=== PATIENT | male | born 1940 | race Caucasian/White ===

== ENCOUNTER → 2019-06-27 | Outpatient (CLI) | payer MEDICARE | END | disposition home or self-care (01) | LOC: SHCH 14:05 | PROVIDERS: ATTEND Internal Medicine Cardiovascular Disease | DX: I67.9 Cerebrovascular disease, unspecified (principal); I87.2 Venous insufficiency (chronic) (peripheral) | CPT/HCPCS: 93970 ==

== ENCOUNTER 2019-08-03 12:36 | Inpatient (IN) | payer MEDICARE ==
[~2019-08-03] VITALS: Ht 177.8 cm; Wt 116.6 kg
[2019-08-03 14:01] LABS: BASOPHILS % (AUTO) 0.7 % (0.0-5.0); EOSINOPHILS % (AUTO) 2.3 % (0.0-8.0); HEMATOCRIT 46.7 % (42-54); LYMPHOCYTES % (AUTO) 16.8 % (21.0-51.0); MEAN CORPUSCULAR HEMOGLOBIN 32.2 pg (27.0-33.0); MEAN CORPUSCULAR HGB CONC 34.1 g/dL (32.0-36.0); MEAN CORPUSCULAR VOLUME 94.6 fL (79-99); MONOCYTES % (AUTO) 6.9 % (3.0-13.0); NEUTROPHILS % (AUTO) 73.3 % (40.0-77.0); PLATELET COUNT (AUTO) 179 K/uL (130-400); RED BLOOD CELL COUNT(AUTO) 4.93 MIL/uL (4.50-6.20); RED CELL DISTRIBUTION WIDTH 13.3 % (11.0-15.5); WHITE BLOOD COUNT (AUTO) 6.7 K/uL (4.8-10.8)
[2019-08-03 14:09] LABS: CREATININE 1.2 mg/dL (0.5-1.5); POTASSIUM 4.4 mmol/L (3.5-5.1)
[2019-08-03 14:11] LABS: INR 0.95 (0.85-1.15); PARTIAL THROMBOPLASTIN TIME 25.4 SEC (26.3-35.5)
[2019-08-03 14:13] LABS: ALBUMIN 3.5 g/dL (3.5-5.0); BILIRUBIN,DIRECT 0.2 mg/dL (0.0-0.3); BILIRUBIN,TOTAL 0.7 mg/dL (0.2-1.0); TOTAL PROTEIN, SERUM 7.3 g/dL (6.0-8.3)
[2019-08-03] MEDS ORDERED: ACETAMINOPHEN 325 MG TAB PO PRN (14:45)
[2019-08-03] MEDS: ENOXAPARIN SODIUM 120 MG/0.8ML SQ SCH ×2 (14:46→21:00)
[2019-08-03] MEDS ORDERED: GLUCAGON 1MG KIT 1 MG ML IM PRN (15:00)
[2019-08-03] MEDS ORDERED: DEXTROSE 50%-WATER 50 ML DISP.SYRIN IV PRN (15:00)
[2019-08-03] MEDS ORDERED: ENOXAPARIN SODIUM 60 MG/0.6 ML SQ ONE (15:25)
[2019-08-03] MEDS: INSULIN R PO SS1 SQ SCH ×2 (16:30→21:00)
[2019-08-03 18:51] VITALS: BP 131/77
[2019-08-03 20:00] VITALS: BP 121/69
[2019-08-03] MEDS ORDERED: ENOXAPARIN SODIUM 40 MG/0.4 ML SYRINGE SQ ONE (22:18)
[2019-08-03] MEDS ORDERED: ENOXAPARIN SODIUM 80 MG/0.8 ML SQ ONE (22:19)
[2019-08-04] VITALS: BP 118/64
[2019-08-04 03:40] VITALS: BP 126/64
[2019-08-04 04:25] LABS: HEMATOCRIT 42.6 % (42-54); MEAN CORPUSCULAR HEMOGLOBIN 33.8 pg (27.0-33.0); MEAN CORPUSCULAR HGB CONC 35.1 g/dL (32.0-36.0); MEAN CORPUSCULAR VOLUME 96.3 fL (79-99); NUCLEATED RED BLOOD CELLS 0.1 % (0.0-0.19); PLATELET COUNT (AUTO) 162 K/uL (130-400); RED BLOOD CELL COUNT(AUTO) 4.42 MIL/uL (4.50-6.20); RED CELL DISTRIBUTION WIDTH 13.1 % (11.0-15.5); WHITE BLOOD COUNT (AUTO) 6.9 K/uL (4.8-10.8)
[2019-08-04 04:43] LABS: ALBUMIN 3.2 g/dL (3.5-5.0); BILIRUBIN,TOTAL 0.5 mg/dL (0.2-1.0); CREATININE 1.1 mg/dL (0.5-1.5); POTASSIUM 3.6 mmol/L (3.5-5.1); TOTAL PROTEIN, SERUM 6.8 g/dL (6.0-8.3)
[2019-08-04] MEDS: INSULIN R PO SS1 SQ SCH ×2 (06:49→11:17)
[2019-08-04] MEDS ORDERED: KETO120S3 TP (07:16)
[2019-08-04] MEDS ORDERED: INSLAN SQ (07:16)
[2019-08-04] MEDS ORDERED: ASPI-555 PO (07:16)
[2019-08-04] MEDS ORDERED: KETO15CR2 TP (07:16)
[2019-08-04] MEDS ORDERED: BENA1TAB18 PO (07:16)
[2019-08-04] MEDS ORDERED: METF-445 PO (07:16)
[2019-08-04 07:30] VITALS: BP 143/87
[2019-08-04] MEDS ORDERED: BENAZEPRIL PO SCH (09:00)
[2019-08-04] MEDS ORDERED: HYDROCHLOROTHIAZIDE PO SCH (09:00)
[2019-08-04] MEDS ORDERED: ASPIRIN 81 MG EC TAB PO SCH (09:00)
[2019-08-04] MEDS ORDERED: KETOCONAZOLE 15 GM CREAM.GM. TP SCH ×2 (09:00)
[2019-08-04] MEDS ORDERED: METFORMIN HCL 850 MG TABLET PO SCH (09:03)
[2019-08-04] MEDS: ENOXAPARIN SODIUM 120 MG/0.8ML SQ SCH (09:48)
[2019-08-04] MEDS ORDERED: INSULIN GLARGINE 100 UNITS/ML 10 ML VIAL SQ SCH (10:00)
[2019-08-04 11:12] VITALS: BP 120/64
--- NOTE | 2019-08-04 15:00 | NUR ---
DISCHARGE DISCHARGE INSTRUCTIONS GIVEN TO PATIENT AND HIS , BOTH VERBALIZED UNDERSTANDING. EDUCATED PATIENT ON BLEEDING RISKS WHILE TAKING NEW MEDICATION APIXIBAN WHICH HAS BEEN PRESCRIBED. FOLLOW UP APPOINTMENTS MADE WITH DR SAN AND DR ALTMAN. NEW PRESCRIPTIONS GIVEN. IV REMOVED, NO SIGNS OF BLEEDING NOTED.
[2019-08-05] MEDS ORDERED: INSULIN GLARGINE 100 UNITS/ML 10 ML VIAL SQ SCH (08:00)
== END 2019-08-04 15:25 | disposition home or self-care (01) | DRG 301 ==
LOC: EDH 12:36 → EDHIP 13:58 → 4CH 18:23
PROVIDERS: ADMIT Internal Medicine Nephrology; ATTEND Internal Medicine Nephrology
DX: I82.411 Acute embolism and thrombosis of right femoral vein (principal); I82.431 Acute embolism and thrombosis of right popliteal vein; E11.9 Type 2 diabetes mellitus without complications; I10 Essential (primary) hypertension; E78.5 Hyperlipidemia, unspecified; I45.6 Pre-excitation syndrome; M19.90 Unspecified osteoarthritis, unspecified site; Z87.19 Personal history of other diseases of the digestive system
CPT/HCPCS: 36415; 80048; 80053; 80076; 82550; 82948; 84484; 85025; 85027; 85610; 85730; 93005; 93970; G0378; J1650

== ENCOUNTER 2020-10-24 21:27 | Inpatient (IN) | payer MEDICARE ==
[~2020-10-24] VITALS: Ht 180.3 cm; Wt 115.2 kg
[~2020-10-24 21:27] MED LIST: BENA1TAB18 PO; INSLAN SQ; KETO120S13 TP; KETO15CR2 TP; METF-445 PO
[2020-10-24 22:15] LABS: BASOPHILS % (AUTO) 0.6 % (0.0-5.0); EOSINOPHILS % (AUTO) 5.7 % (0.0-8.0); HEMATOCRIT 47.6 % (42-54); LYMPHOCYTES % (AUTO) 7.1 % (21.0-51.0); MEAN CORPUSCULAR HEMOGLOBIN 31.3 pg (27.0-33.0); MEAN CORPUSCULAR HGB CONC 33.8 g/dL (32.0-36.0); MEAN CORPUSCULAR VOLUME 92.6 fL (79-99); MONOCYTES % (AUTO) 10.9 % (3.0-13.0); NEUTROPHILS % (AUTO) 75.3 % (40.0-77.0); PLATELET COUNT (AUTO) 105 K/uL (130-400); RED BLOOD CELL COUNT(AUTO) 5.14 MIL/uL (4.50-6.20); RED CELL DISTRIBUTION WIDTH 12.5 % (11.0-15.5); WHITE BLOOD COUNT (AUTO) 7.2 K/uL (4.8-10.8)
[2020-10-24 22:22] LABS: APPEARANCE,URINE Clear (CLEAR); BILIRUBIN,URINE Negative (NEGATIVE); COLOR,URINE Yellow (YELLOW); GLUCOSE, URINE (UA) Negative (NEGATIVE); KETONES,URINE Trace mg/dL (NEGATIVE); LEUKOCYTE ESTERASE ,URINE Negative (NEGATIVE); NITRATE,URINE Negative (NEGATIVE); OCCULT BLOOD,URINE Negative (NEGATIVE); PH,URINE 5.5 (5.0-8.0); PROTEIN,URINE Negative (NEGATIVE); UROBILINOGEN,URINE 0.2 mg/dL (0.2-1.0)
[2020-10-24 22:31] LABS: CREATININE 1.3 mg/dL (0.5-1.5); POTASSIUM 3.8 mmol/L (3.5-5.1)
[2020-10-24 22:36] LABS: ALBUMIN 3.5 g/dL (3.5-5.0); BILIRUBIN,TOTAL 0.7 mg/dL (0.2-1.0); TOTAL PROTEIN, SERUM 7.4 g/dL (6.0-8.3)
[2020-10-24 23:37] LABS: INR 1.06 (0.85-1.15); PROTHROMBIN TIME 11.5 SEC (9.6-11.6)
[2020-10-24 23:38] LABS: PARTIAL THROMBOPLASTIN TIME 26.4 SEC (26.3-35.5)
[2020-10-25] MEDS ORDERED: ENOXAPARIN SODIUM 30 MG/0.3 ML SQ ONE (01:45)
[2020-10-25 02:00] VITALS: BP 147/72
[2020-10-25] MEDS ORDERED: ONDANSETRON 4MG INJ IVP PRN (02:00)
[2020-10-25] MEDS ORDERED: GLUCAGON 1MG KIT 1 MG ML IM PRN (02:00)
[2020-10-25] MEDS ORDERED: DEXTROSE 50%-WATER 50 ML DISP.SYRIN IV PRN (02:00)
[2020-10-25] MEDS ORDERED: MORPHINE 2 MG SYG IVP PRN (02:00)
[2020-10-25] MEDS ORDERED: ACETAMINOPHEN 325 MG TAB PO PRN (02:00)
[2020-10-25] MEDS ORDERED: ASPI-1197 PO (02:47)
[2020-10-25 03:57] LABS: BASOPHILS % (AUTO) 0.6 % (0.0-5.0); EOSINOPHILS % (AUTO) 0.4 % (0.0-8.0); LYMPHOCYTES % (AUTO) 17.2 % (21.0-51.0); MEAN CORPUSCULAR HEMOGLOBIN 30.9 pg (27.0-33.0); MEAN CORPUSCULAR HGB CONC 33.4 g/dL (32.0-36.0); MEAN CORPUSCULAR VOLUME 92.6 fL (79-99); MONOCYTES % (AUTO) 12.7 % (3.0-13.0); NEUTROPHILS % (AUTO) 68.7 % (40.0-77.0); PLATELET COUNT (AUTO) 149 K/uL (130-400); RED BLOOD CELL COUNT(AUTO) 4.75 MIL/uL (4.50-6.20); RED CELL DISTRIBUTION WIDTH 12.6 % (11.0-15.5); WHITE BLOOD COUNT (AUTO) 4.9 K/uL (4.8-10.8)
[2020-10-25 04:13] LABS: ALBUMIN 3.1 g/dL (3.5-5.0); BILIRUBIN,TOTAL 1.1 mg/dL (0.2-1.0); CREATININE 1.1 mg/dL (0.5-1.5); HEMOGLOBIN A1C 6.9 % (4.0-6.0); MAGNESIUM 1.7 mg/dL (1.80-2.40); POTASSIUM 3.6 mmol/L (3.5-5.1); TOTAL PROTEIN, SERUM 6.9 g/dL (6.0-8.3)
[2020-10-25] MEDS: INSULIN R PO SS1 SQ SCH ×4 (07:30→21:00)
[2020-10-25] MEDS: ENOXAPARIN SODIUM 30 MG/0.3 ML SQ SCH (09:00)
[2020-10-25 10:07] VITALS: BP 167/78
[2020-10-25] MEDS ORDERED: GADODIAMIDE 10 MMOL/20 ML VIAL IV ONE (15:14)
[2020-10-25 15:35] VITALS: BP 125/52
[2020-10-25 18:20] VITALS: BP 108/66
[2020-10-25] MEDS ORDERED: MAGNESIUM 2GM PREMIX 50ML 50 ML IV PRN (19:30)
[2020-10-25 19:35] VITALS: BP 124/65
[2020-10-26 00:07] VITALS: BP 127/65
[2020-10-26 04:00] VITALS: BP 132/56
[2020-10-26] MEDS: INSULIN R PO SS1 SQ SCH ×2 (06:30→11:30)
[2020-10-26] MEDS ORDERED: METFORMIN HCL 850 MG TABLET PO SCH (07:30)
[2020-10-26 08:00] VITALS: BP 138/60
[2020-10-26] MEDS ORDERED: INSULIN GLARGINE 100 UNITS/ML 10 ML VIAL SQ SCH (08:00)
[2020-10-26] MEDS ORDERED: ASPIRIN 81MG CHEW TAB PO SCH (09:00)
[2020-10-26] MEDS ORDERED: BENAZEPRIL HCTZ PO SCH (09:00)
[2020-10-26 09:33] LABS: BASOPHILS % (AUTO) 0.8 % (0.0-5.0); EOSINOPHILS % (AUTO) 5.4 % (0.0-8.0); HEMATOCRIT 46.3 % (42-54); LYMPHOCYTES % (AUTO) 27.9 % (21.0-51.0); MEAN CORPUSCULAR HEMOGLOBIN 31.2 pg (27.0-33.0); MEAN CORPUSCULAR HGB CONC 33.5 g/dL (32.0-36.0); MEAN CORPUSCULAR VOLUME 93.2 fL (79-99); MONOCYTES % (AUTO) 14.9 % (3.0-13.0); NEUTROPHILS % (AUTO) 50.8 % (40.0-77.0); PLATELET COUNT (AUTO) 152 K/uL (130-400); RED BLOOD CELL COUNT(AUTO) 4.97 MIL/uL (4.50-6.20); RED CELL DISTRIBUTION WIDTH 12.7 % (11.0-15.5); WHITE BLOOD COUNT (AUTO) 5.2 K/uL (4.8-10.8)
[2020-10-26] MEDS: ENOXAPARIN SODIUM 30 MG/0.3 ML SQ SCH (09:56)
[2020-10-26 10:34] LABS: CREATININE 1.2 mg/dL (0.5-1.5); POTASSIUM 3.5 mmol/L (3.5-5.1)
[2020-10-26 11:34] VITALS: BP 123/67
[2020-12-16] MEDS ORDERED: BENA40TA92 PO (10:44)
== END 2020-10-26 13:05 | disposition home health service (06) | DRG 312 ==
LOC: EDH 21:27 → EDHIP 10-25 00:46 → 4DH 10-25 02:00
PROVIDERS: ADMIT Internal Medicine Infectious Disease; ATTEND Internal Medicine Infectious Disease
DX: R55 Syncope and collapse (principal); R53.1 Weakness; E83.42 Hypomagnesemia; Z20.822 Contact with and (suspected) exposure to COVID-19; E11.9 Type 2 diabetes mellitus without complications; E66.01 Morbid (severe) obesity due to excess calories; E78.5 Hyperlipidemia, unspecified; G89.29 Other chronic pain; I10 Essential (primary) hypertension; M19.90 Unspecified osteoarthritis, unspecified site; M54.9 Dorsalgia, unspecified; R53.81 Other malaise; Z04.3 Encounter for examination and observation following other accident; M47.26 Other spondylosis with radiculopathy, lumbar region; W18.30XA Fall on same level, unspecified, initial encounter; Z83.3 Family history of diabetes mellitus; Z87.19 Personal history of other diseases of the digestive system; Z68.35 Body mass index [BMI] 35.0-35.9, adult; Y93.89 Activity, other specified; Y92.89 Other specified places as the place of occurrence of the external cause; Y99.8 Other external cause status
CPT/HCPCS: 36415; 71045; 72158; 80048; 80053; 80061; 81003; 82550; 82948; 83036; 83605; 83735; 83880; 84145; 84484; 85025; 85610; 85730; 86140; 87426; 93005; 97039; 99291; A9579; G0378; J1650; J1815; J3475; U0003

== ENCOUNTER 2020-12-12 09:00 | Observation (INO) | payer MEDICARE ==
[~2020-12-12] VITALS: Ht 177.8 cm; Wt 112.9 kg
[~2020-12-12 09:00] MED LIST changes: +ASPI-1197 PO; -BENA1TAB18 PO; -KETO15CR2 TP
[2020-12-16 09:59] VITALS: BP_SYST 145; BP_SYST 163; BP_DIAS 76; BP_DIAS 77
[2020-12-16] MEDS ORDERED: MULT-1367 PO (10:44)
[2020-12-16] MEDS ORDERED: HYDR25TA PO (10:44)
[2020-12-16] MEDS ORDERED: BENA40TA9 PO (10:44)
[2020-12-16] MEDS ORDERED: EMPA25TA PO (10:44)
[2020-12-17] VITALS (24 sets, daily range): BP systolic 106–138; BP diastolic 47–78
[2020-12-17] MEDS: CEFAZOLIN SODIUM 1 GM VIAL IVP SCH ×4 (05:00→17:48)
[2020-12-17] MEDS ORDERED: SODIUM CHLORIDE 0.9% 1000ML 1,000 ML IV ONE (06:47)
[2020-12-17] MEDS ORDERED: DURAMORPH PF1 MG/ML 10ML AMP IV ONE (06:55)
[2020-12-17] MEDS ORDERED: BUPIVACAINE/EPI/PF 0.25% 30ML VIAL IJ ONE (06:55)
[2020-12-17] MEDS ORDERED: CEFAZOLIN SODIUM 1 GM VIAL ONE (06:56)
[2020-12-17] MEDS ORDERED: THROMBIN-JMI 20000 UNIT KIT TP ONE (06:56)
[2020-12-17] MEDS ORDERED: SUCCINYLCHOLINE CHLORIDE 20 MG/ML 10 ML VIAL ONE (07:15)
[2020-12-17] MEDS ORDERED: LIDOCAINE PF 100MG/5ML (2%) SYRINGE 5ML ONE ×2 (07:15→10:20)
[2020-12-17] MEDS ORDERED: PROPOFOL 10 MG/ML 20ML VIAL IV ONE (07:16)
[2020-12-17] MEDS ORDERED: GLYCOPYRROLATE 1 MG/5 ML SYRINGE ONE (07:16)
[2020-12-17] MEDS ORDERED: ONDANSETRON HCL 4 MG/2 ML VIAL ONE (07:16)
[2020-12-17] MEDS ORDERED: DEXAMETHASONE SOD PHOSPHATE 10MG/ML 1ML VIAL ONE ×2 (07:16→07:29)
[2020-12-17] MEDS ORDERED: NEOSTIGMINE 5MG/5ML SYR IV ONE (07:16)
[2020-12-17] MEDS ORDERED: MIDAZOLAM HCL 1 MG/ML 2ML VIAL ONE (07:16)
[2020-12-17] MEDS ORDERED: FENTANYL CITRATE PF 50 MCG/1 ML 2ML VIAL ONE (07:17)
[2020-12-17] MEDS ORDERED: ROCURONIUM 10MG/1ML SYR 10 MG/ML ML ONE ×2 (07:17→08:10)
[2020-12-17] MEDS ORDERED: KETAMINE 50MG/ML SYRINGE 50 MG/ML DISP.SYRIN IV ONE (07:23)
[2020-12-17] MEDS ORDERED: PHENYLEPHRINE HCL 10 MG/ML 1ML VIAL IV ONE (07:32)
[2020-12-17] MEDS ORDERED: EPHEDRINE SULFATE 50 MG/ML AMPULE ONE (08:37)
[2020-12-17] MEDS ORDERED: KETOROLAC 30MG VIAL (30MG/ML) ONE (10:23)
[2020-12-17] MEDS ORDERED: MORPHINE 2 MG SYG (2MG/1ML) IVP PRN (10:45)
[2020-12-17] MEDS ORDERED: HYDROCODONE/ACETAMINOPHEN 5/325 MG TAB PO PRN (10:45)
[2020-12-17] MEDS ORDERED: SODIUM CHLORIDE 0.9% 10 ML VIAL IVP PRN (10:45)
[2020-12-17] MEDS ORDERED: PROMETHAZINE HCL 25 MG/ML 1ML AMPULE IM PRN (10:45)
[2020-12-17] MEDS: DEXAMETHASONE SOD PHOSPHATE 4 MG/ML 1ML VIAL IVP SCH ×3 (10:45→21:21)
[2020-12-17] MEDS ORDERED: LACTATED RINGERS 1000ML 1,000 ML IV SCH (10:45)
[2020-12-17] MEDS ORDERED: KETOCONAZOLE TP SCH (10:45)
[2020-12-17] MEDS ORDERED: GLUCAGON 1MG KIT 1 MG ML IM PRN (11:30)
[2020-12-17] MEDS ORDERED: DEXTROSE 50%-WATER 50 ML DISP.SYRIN IV PRN (11:30)
[2020-12-17] MEDS: INSULIN HUMULIN R 100 UNIT/ML 3ML SQ SCH ×3 (12:24→19:58)
[2020-12-17] MEDS: METFORMIN HCL 850 MG TABLET PO SCH (16:42)
[2020-12-18 03:24] VITALS: BP 140/63
[2020-12-18] MEDS: DEXAMETHASONE SOD PHOSPHATE 4 MG/ML 1ML VIAL IVP SCH (04:29)
[2020-12-18] MEDS: INSULIN HUMULIN R 100 UNIT/ML 3ML SQ SCH (05:22)
[2020-12-18] MEDS: METFORMIN HCL 850 MG TABLET PO SCH (05:58)
[2020-12-18 07:55] VITALS: BP 134/58
[2020-12-18] MEDS ORDERED: INSULIN GLARGINE 100 UNITS/ML 10 ML VIAL SQ SCH (08:00)
[2020-12-18] MEDS ORDERED: **HM** JARDIANCE 25MG PO SCH (09:00)
[2020-12-18] MEDS ORDERED: BENAZEPRIL HCL 10 MG TABLET PO SCH (09:00)
[2020-12-18] MEDS ORDERED: ASPIRIN 81MG TAB.CHEW PO SCH (09:00)
[2020-12-18] MEDS ORDERED: HYDROCHLOROTHIAZIDE 25 MG TABLET PO SCH (09:00)
[2020-12-18] MEDS ORDERED: MULTIVITAMIN TABLET PO SCH (09:00)
== END 2020-12-18 10:17 | disposition home or self-care (01) ==
LOC: EDSTATUS 09:00 → DAHIP 12-17 05:45 → 4AH 12-17 11:50
PROVIDERS: ADMIT Neurological Surgery; ATTEND Neurological Surgery
DX: M48.07 Spinal stenosis, lumbosacral region (principal); Z20.822 Contact with and (suspected) exposure to COVID-19; I48.91 Unspecified atrial fibrillation; M67.48 Ganglion, other site; Z86.718 Personal history of other venous thrombosis and embolism; Z79.899 Other long term (current) drug therapy
CPT/HCPCS: 63047; 63048; 72020; 82948 ×5; 88304; 96361 ×2; 96374; 96375; 96376 ×2; A4215; A4221; A4222; A4223; A4344; A4510; A4649 ×3; A4663; A6260; G0378 ×24; J0330; J0690 ×3; J1100 ×6; J1815 ×4; J1885; J2001 ×2; J2250; J2274; J2370; J2405; J2704; J2710; J3010; J3490 ×4; J7030 ×2; J7120 ×2; U0003

== ENCOUNTER → 2021-12-10 | Outpatient (CLI) | payer MEDICARE ==
[~2021-12-10] MED LIST changes: +BENA40TA92 PO; +EMPA25TA PO; +HYDR25TA PO; +MULT-1367 PO
== END | disposition home or self-care (01) ==
LOC: RAH 07:45
PROVIDERS: ATTEND Internal Medicine Nephrology
DX: S30.0XXA Contusion of lower back and pelvis, initial encounter (principal); D18.09 Hemangioma of other sites; M47.817 Spondylosis without myelopathy or radiculopathy, lumbosacral region; M48.07 Spinal stenosis, lumbosacral region; M71.38 Other bursal cyst, other site; G31.9 Degenerative disease of nervous system, unspecified; J33.8 Other polyp of sinus; R41.0 Disorientation, unspecified; X58.XXXA Exposure to other specified factors, initial encounter; Y93.89 Activity, other specified; Y92.89 Other specified places as the place of occurrence of the external cause; Y99.8 Other external cause status
CPT/HCPCS: 70551; 72148

== ENCOUNTER 2025-01-01 22:58 | Inpatient (IN) | payer MEDICARE ==
[~2025-01-01] VITALS: Ht 180.3 cm; Wt 90.5 kg
[2025-01-01 23:39] LABS: BASOPHILS # (AUTO) 0.03 K/uL (0.00-0.20); BASOPHILS % (AUTO) 0.3 % (0.0-5.0); EOSINOPHILS # (AUTO) 0.06 K/uL (0.00-0.70); EOSINOPHILS % (AUTO) 0.5 % (0.0-8.0); HEMATOCRIT 49.3 % (42-54); IMMATURE GRANULOCYTE ABSOLUTE 0.06 K/uL (0-1); LYMPHOCYTES # (AUTO) 1.4 K/uL (1.0-4.8); LYMPHOCYTES % (AUTO) 12.9 % (21.0-51.0); MEAN CORPUSCULAR HEMOGLOBIN 32.1 pg (27.0-33.0); MEAN CORPUSCULAR HGB CONC 32.5 g/dL (32.0-36.0); MEAN CORPUSCULAR VOLUME 98.8 fL (79-99); MONOCYTES # (AUTO) 0.7 K/uL (0.1-1.0); MONOCYTES % (AUTO) 6.3 % (3.0-13.0); NEUTROPHILS # (AUTO) 8.8 K/uL (1.8-7.7); NEUTROPHILS % (AUTO) 79.5 % (40.0-77.0); PLATELET COUNT (AUTO) 201 K/uL (130-400); RED BLOOD CELL COUNT(AUTO) 4.99 MIL/uL (4.50-6.20); RED CELL DISTRIBUTION WIDTH 13.3 % (11.0-15.5); WHITE BLOOD COUNT (AUTO) 11.1 K/uL (4.8-10.8)
[2025-01-01 23:49] LABS: CREATININE 1.3 mg/dL (0.5-1.3); POTASSIUM 4.4 mmol/L (3.5-5.1)
[2025-01-02] VITALS (83 sets, daily range): BP systolic 76–150; BP diastolic 34–77; PULSE 88–124; RESP 11–22; TEMP 98.9–100.5; O2SAT 89–100
--- NOTE | 2025-01-02 00:13 | ERN ---
General Chief Complaint: Abdominal Pain Stated Complaint: RUQ ABDOMINAL PAIN Time Seen by MD: 23:01 Source: patient History of Present Illness Initial Comments Patient is a [age]-year-old male with a past history of Parkinson's, diabetes mellitus, hypertension and Victorino Parkinson White syndrome. He was sitting at home when all of sudden he had a sudden pain going from his right lower quadrant up to his right chest and around the back. He has never had this pain before. He can not sit down he has to stand to stay comfortable. He can not take deep breaths or talk for very long because of his chest wall pain. He has tenderness on his back in the midscapular region. Current vital signs are a heart rate of 129 O2 sats are 94% on 10 L nasal cannula blood pressure is 128/68 he is breathing at a rate of 37. Timing/Duration: 1-3 hours Severity: severe Associated Symptoms: chest pain, shortness of breath Allergies: Coded Allergies: No Known Allergies (Unverified Allergy, 07/27/13) Home Meds Reported Medications Empagliflozin (Jardiance) 25 Mg Tablet, 25 MG PO AM, TAB 12/16/20 Hydrochlorothiazide (Hydrochlorothiazide) 25 Mg Tablet, 25 MG PO AM, TAB 12/16/20 Benazepril HCl (Benazepril HCl) 40 Mg Tablet, 40 MG PO AM, TAB 12/16/20 Multivitamin (Multivitamin) 1 Each Tablet, 1 EACH PO AM, TAB 12/16/20 Aspirin (Aspirin) 81 Mg Tab.chew, 81 MG PO DAILY, TAB.CHEW 10/25/20 Ketoconazole (Ketoconazole) 120 Ml Shampoo, 120 ML TP 5XDAY, APPL 08/04/19 Insulin Glargine,Hum.rec.anlog (Lantus) 100 Units/Ml Inj, 35 UNITS SQ DAILYBKFST, ML 08/04/19 Metformin HCl (Metformin HCl) 850 Mg Tablet, 850 MG PO BIDAC, TAB 08/04/19 Past Medical History Past Medical History: Diabetes-Type II, Hypertension, Other Medical History Other: PARKINSONS, Hx of WPW syndrome Past Surgical History: None Constitutional: (-) chills, (-) diaphoresis, (-) fever, (-) malaise, (-) weakness, (-) other documentation EENTM: (-) eye pain, (-) blurred vision, (-) tearing, (-) double vision, (-) ear pain, (-) ear discharge, (-) nose pain, (-) nose congestion, (-) throat pain, (-) Throat swelling, (-) mouth pain, (-) tooth pain, (-) mouth swelling, (-) other documentation Respiratory: (-) cough, (-) orthopnea, (-) short of breath, (-) stridor, (-) wheezing, (-) other documentation Cardiovascular: (+) chest pain, (+) palpitations, (+) syncope, (+) dyspnea on exertion, (+) other documentation (History of Awttk-Qttjambbn-Brkxy syndrome, it was treated with digoxin and metoprolol but he stopped taking those medications as the condition resolved.) Gastrointestinal/Abdominal: (-) nausea, (-) vomiting, (-) diarrhea, (-) abdominal pain, (-) abdominal distention, (-) constipation, (-) rectal bleeding, (-) dark stool/melena, (-) other documentation Genitourinary: (-) penile discharge, (-) dysuria, (-) frequency, (-) hematuria, (-) pain, (-) other documentation Musculoskeletal: (+) Neck pain, (+) back pain, (+) Flank Pain, (+) joint pain, (+) joint swelling, (+) muscle pain, (+) muscle stiffness, (+) gout, (+) other documentation Neuro: (-) altered mental status, (-) headache, (-) syncope, (-) paralysis, (-) numbness, (-) seizure, (-) pre-existing deficit, (-) tremors, (-) weakness, (-) dizziness, (-) slurred speech, (-) vertigo, (-) other documentation Psych: (-) depression, (-) suicidal ideation, (-) anxiety, (-) emotional problems, (-) auditory hallucinations, (-) visual hallucinations Physical Exam Physical Exam Dictation Patient is standing at the edge of the bed because sitting down causes too much pain in his chest. Occasionally he will sit down because he feels dizzy but then he needs to stand up fairly quickly after that. He can not talk well as he can only take sharp shallow breaths. The patient is a bit anxious, understandably so. Orientation: (+) alert, (+) oriented x 3 Head/Face Trauma: No Eye: bilateral eye normal inspection, bilateral eye PERRL, bilateral eye EOMI Ear, Nose, Throat: (+) hearing grossly normal, (+) normal ENT inspection, (+) moist mucous membraine Neck: (+) normal inspection, (+) supple, (+) full range of motion Respiratory: (+) chest non-tender, (+) lungs clear Respiratory Comment Lungs do sound clear. Heart: (+) no gallop, (+) tachycardia Vascular: (+) no edema, (+) normal peripheral pulse Gastrointestinal: (+) soft, (+) non-tender, (+) bowel sound present Results Laboratory and Microbiology Lab and Micro Result Laboratory Tests Test 01/01/25 23:31 01/02/25 00:08 01/02/25 00:46 01/02/25 00:58 White Blood Count 11.1 K/uL (4.8-10.8) H Red Blood Count 4.99 MIL/uL (4.50-6.20) Hemoglobin 16.0 g/dL (14.0-18.0) Hematocrit 49.3 % (42-54) Mean Corpuscular Volume 98.8 fL (79-99) Mean Corpuscular Hemoglobin 32.1 pg (27.0-33.0) Mean Corpuscular Hemoglobin Concent 32.5 g/dL (32.0-36.0) Red Cell Distribution Width 13.3 % (11.0-15.5) Platelet Count 201 K/uL (130-400) Mean Platelet Volume 10.4 fL (7.5-10.5) Immature Granulocyte % (Auto) 0.5 % (0-1) Neutrophils (%) (Auto) 79.5 % (40.0-77.0) H Lymphocytes (%) (Auto) 12.9 % (21.0-51.0) L Monocytes (%) (Auto) 6.3 % (3.0-13.0) Eosinophils (%) (Auto) 0.5 % (0.0-8.0) Basophils (%) (Auto) 0.3 % (0.0-5.0) Neutrophils # (Auto) 8.8 K/uL (1.8-7.7) H Lymphocytes # (Auto) 1.4 K/uL (1.0-4.8) Monocytes # (Auto) 0.7 K/uL (0.1-1.0) Eosinophils # (Auto) 0.06 K/uL (0.00-0.70) Basophils # (Auto) 0.03 K/uL (0.00-0.20) Absolute Immature Granulocyte (auto 0.06 K/uL (0-1) Nucleated Red Blood Cells 0.0 % (0.0-0.19) D-Dimer Quantitative (PE/DVT) 5681 ng/mL (0-500) *H Sodium Level 141 mmol/L (136-145) Potassium Level 4.4 mmol/L (3.5-5.1) Chloride Level 104 mmol/L (101-111) Carbon Dioxide Level 27 mmol/L (21-32) Blood Urea Nitrogen 33 mg/dL (7-18) H Creatinine 1.3 mg/dL (0.5-1.3) Glomerular Filtration Rate Calc 55 mL/min (>90) Random Glucose 242 mg/dL (70-105) H Total Calcium 8.8 mg/dL (8.5-10.1) Magnesium Level 1.80 mg/dL (1.80-2.40) Total Bilirubin 0.6 mg/dL (0.2-1.0) Direct Bilirubin 0.1 mg/dL (0.0-0.3) Aspartate Amino Transf (AST/SGOT) 21 U/L (10-37) Alanine Aminotransferase (ALT/SGPT) < 6 U/L (12-78) L Alkaline Phosphatase 70 U/L (50-136) Troponin I High Sensitivity 10 ng/L (4-75) 14 ng/L (4-75) B-Type Natriuretic Peptide 122 pg/mL (0-100) H Total Protein 7.8 g/dL (6.0-8.3) Albumin 3.9 g/dL (3.5-5.0) Lipase 96 U/L (16-77) H Lactic Acid Level 3.4 mmol/L (0.8-2.5) H Influenza Type A Antigen Negative For Type A Influenza Type B Antigen Negative For Type B SARS-CoV-2, RNA, NAAT NEGATIVE SARS CoV-2 Group A Streptococcus Rapid negative (NEGATIVE) Blood Gas Specimen Type Arterial Arterial Blood pH 7.280 (7.350-7.450) Arterial Blood Partial Pressure CO2 43 mmHg (35-48) Arterial Blood Partial Pressure O2 68.3 mmHg (83.0-108.0) L Arterial Blood HCO3 19.9 mmol/L (21.0-28.0) L Arterial Blood Oxygen Saturation 91.7 % (94.0-98.0) L Arterial Blood Base Excess -6.7 mmol/L (-2.0-3.0) L Hemoglobin (Blood Gas) 15.8 g/dL (13.5-17.5) Sodium (Blood Gas) 139 MMOL/L (136-145) Bedside Potassium (Blood Gas) 4.0 MMOL/L (3.4-4.5) Bedside Chloride (Blood Gas) 107 MMOL/L (98-107) Bedside Glucose (Blood Gas) 243 MG/DL (65-95) H Bedside Ionized Calcium (Blood Gas) 1.20 MMOL/L (1.15-1.33) Bedside Lactic Acid (Blood Gas) 1.95 MMOL/L (0.36-0.75) H Blood Gas Temperature 37.0 CELSIUS (35.5-37.0) Blood Gas Flow-by 7.00 L/min (0.00-15.00) Blood Gas Vent Mode NC (ROOM AIR) FiO2 48.0 % Blood Gas Specimen Comment RB DR. WILBURN Test 01/02/25 02:01 Urine Color LIGHT-YELLOW (YELLOW) Urine Appearance CLEAR (CLEAR) Urine pH 5.0 (5.0-8.0) Urine Specific Eros 1.032 (1.001-1.031) Urine Protein NEGATIVE mg/dL (NEGATIVE) Urine Glucose (UA) >=1000 mg/dL (NEGATIVE) H Urine Ketones 20 mg/dL (NEGATIVE) H Urine Occult Blood NEGATIVE (NEGATIVE) Urine Nitrate NEGATIVE (NEGATIVE) Urine Bilirubin NEGATIVE mg/dL (NEGATIVE) Urine Urobilinogen 0.2 mg/dL (0.2-1.0) Urine Leukocyte Esterase NEGATIVE Eugenie/uL Urine RBC 0-1 /HPF (0-1) Urine WBC 0-1 /HPF (0-1) Urine Bacteria RARE /HPF (None Seen) MDM Differential diagnosis for this condition could be: Heart attack, pulmonary embolism, kidney stone, aortic tear, severe electrolyte abnormality. It will be difficult getting a CT scan on this patient, but it needs to be done. I will order the usual labs plus D-dimer and cardiac enzymes chest x-ray. His D-dimer was greater than 5000 raising the suspicion for a PE. Even after 4 mg of IV Dilaudid it was impossible for patient to lie down flat because of his chest pain. Therefore we intubated the patient and started him on a propofol and fentanyl drip. We did then do a CT scan of his chest abdomen and pelvis with angiography. The scans showed bilateral lower lobe pneumonia right worse than left. No PE no aortic dissection. Patient's blood glucose was 243 so I going to give him 10 units of subcutaneous insulin. I bolused him a single dose of Zosyn as well. I discussed the patient with the hospitalist service and they have admitted him to the ICU. Before we intubated the patient he coughed up some thick foul sputum which we sent for culture and sensitivity. He then started coughing up blood. After we intubated him and placed an NG tube it was clear that the blood was coming from his lungs and not his GI tract. My put the patient on a proton pump inhibitor anyway. ED Course Orders Procedure Category Date Status Time Vital Signs Per CPOE 01/01/25 Transmitted Routine 23:30 Saline Lock Iv CPOE 01/01/25 Transmitted 23:30 Cbc With Differential LAB 01/01/25 Complete 23:30 Lipase LAB 01/01/25 Complete 23:30 Urinalysis Profile LAB 01/01/25 Complete 23:30 Troponin I High LAB 01/01/25 Complete Sensitivity 23:30 Basic Metabolic Panel LAB 01/01/25 Complete 23:30 Hepatic Function Panel LAB 01/01/25 Complete 23:51 Chest 1vw RAD 01/01/25 Taken 23:51 B-Type Natriuretic LAB 01/01/25 Complete Peptide 23:51 Magnesium LAB 01/01/25 Complete 23:51 Lactic Acid LAB 01/01/25 Complete 23:56 0.9% Nacl 500ml PHA 01/02/25 Complete Iv.Soln (Ns 500ml 00:00 Blood Cult MIAN 01/02/25 In Process 00:02 12 Lead Ekg Tracing- EKG 01/02/25 Logged Technical 00:13 12 Lead Ekg Tracing- EKG 01/02/25 Logged Technical 00:14 Troponin I High LAB 01/02/25 Complete Sensitivity 00:14 Abd 1vw RAD 01/02/25 Taken 00:21 Respiratory Cult MIAN 01/02/25 In Process W/Gram Stain 00:29 Hydromorphone 2mg PHA 01/02/25 Complete Vial (Dilaudid 2mg Inj 01:00 D-Dimer LAB 01/02/25 Complete 00:35 Hydromorphone 2mg PHA 01/02/25 Complete Vial (Dilaudid 2mg Inj 00:36 Arterial Blood Gas + RT 01/02/25 Transmitted 00:49 Covid Rna Naat LAB 01/02/25 Complete 00:50 Influenza Type A & B, LAB 01/02/25 Complete Rapid 00:50 Rapid (Group A Strep) LAB 01/02/25 Complete 00:50 Arterial Blood Gas LAB 01/02/25 Complete Arterial + 00:[address] 01/02/25 Taken Chest/Abd/Pelvis 01:15 Chest 1vw RAD 01/02/25 Taken 01:25 Dexmedetomidine PHA 01/02/25 Complete 400mcg/[id number] 01:35 Fentanyl 1000mcg+Ns PHA 01/02/25 Complete 100ml (Fentanyl 1000 01:36 Propofol 1000 Mg/100 PHA 01/02/25 Complete Ml (Diprivan 1000mg 01:38 Iohexol (Omnipaque) PHA 01/02/25 Complete 01:53 Fentanyl 1000mcg+Ns PHA 01/02/25 In Process 100ml (Fentanyl 1000 03:00 Propofol 1000 Mg/100 PHA 01/02/25 In Process Ml (Diprivan 1000mg 03:00 Nurse Driven Granger MORGAN 01/02/25 In Process Removal Pro 02:53 Zosyn 3.375gm+Ns 50ml PHA 01/02/25 In Process (Zosyn 3.375gm+Ns 03:30 Lactic Acid (Removed) LAB 01/02/25 Logged 03:41 Vital Signs(Adult CPOE 01/02/25 Transmitted Hospitalist) 03:36 Admit Orders ADM 01/02/25 Transmitted 03:36 Cefepime Hcl 1 Gm PHA 01/02/25 Logged Vial (Maxipime 1 Gm Vi 04:00 Doxycycline 100mg+Ns PHA 01/02/25 Logged 250ml (Doxycycline 04:00 Acetaminophen 325 Tab PHA 01/02/25 Logged (Tylenol 325mg Tab 04:00 Ondansetron 4mg Inj PHA 01/02/25 Logged (Zofran 4mg Inj) 04:00 Enoxaparin Sodium 30 PHA 01/02/25 Logged Mg/0.3 Ml (Lovenox) 09:00 *Nursing CPOE 01/02/25 Transmitted Communication: 03:36 Cbc With Differential LAB 01/02/25 Logged 08:00 Basic Metabolic Panel LAB 01/02/25 Logged 08:00 Magnesium LAB 01/02/25 Logged 08:00 Initiate MORGAN 01/02/25 In Process Hyperglycemia Protoco 03:36 Insulin Regular, PHA 01/02/25 Logged Human 3ml (Humulin R 07:30 Critcal Care Consult CONPHYSVC 01/02/25 Transmitted 03:36 Tranexamic Acid PHA 01/02/25 Logged (Cyklokapron) 06:00 Current Medications Medications (Trade) Dose Ordered Sig/Yadira Route PRN Reason Start Time Stop Time Status Last Admin Dose Admin Acetaminophen (TYLenol 325MG TAB) 650 mg Q6H PRN PO MILD PAIN (1-3) 01/02/25 04:00 02/01/25 03:59 UNV Cefepime HCl (MAXipime 1 GM vial) 1 gm Q8H IVPB 01/02/25 04:00 01/12/25 03:59 UNV Dexmedetomidine/ Sodium Chloride (PRECEdex 400MCG/ 100ML-NS) 400 mcg STK-MED ONCE IV 01/02/25 01:35 01/02/25 01:36 DC Doxycycline Hyclate 250 ml @ 125 mls/hr Q12H IV 01/02/25 04:00 01/12/25 03:59 UNV Enoxaparin Sodium (Lovenox) 30 mg DAILY SQ 01/02/25 09:00 02/01/25 08:59 UNV Fentanyl Citrate 100 ml @ 2.5 mls/hr PROTOCOL IV 01/02/25 03:00 01/09/25 02:59 01/02/25 03:12 Fentanyl Citrate 100 ml @ As Directed STK-MED ONCE IV 01/02/25 01:36 01/02/25 01:37 DC Hydromorphone HCl (DiLAUDid 2MG INJ) 2 mg ONCE ONCE IVP 01/02/25 01:00 01/02/25 01:01 DC 01/02/25 00:46 Hydromorphone HCl (DiLAUDid 2MG INJ) 2 mg STK-MED ONCE .ROUTE 01/02/25 00:36 01/02/25 00:36 DC Insulin Human Regular (humuLIN R 100 UNIT/ML 3ML) INSULIN SLIDING SCAL... ACHS SQ 01/02/25 07:30 02/01/25 07:29 UNV Iohexol (Omnipaque) 35,000 mg STK-MED ONCE IV 01/02/25 01:53 01/02/25 01:53 DC Ondansetron HCl (zoFRAN 4MG INJ) 4 mg Q6H PRN IVP NAUSEA/VOMITING 01/02/25 04:00 02/01/25 03:59 UNV Piperacillin Sod/ Tazobactam Sod (Zosyn 3.375gm+NS 50ml) 3.375 gm Q8H IV 01/02/25 03:30 01/12/25 03:29 Propofol 100 ml @ As Directed STK-MED ONCE IV 01/02/25 01:38 01/02/25 01:38 DC Propofol (DIPRivan 1000MG/ 100ML) 1,000 mg PROTOCOL PRN IV SEDATION 01/02/25 03:00 02/01/25 02:59 01/02/25 03:10 Sodium Chloride 500 ml @ 0 mls/hr ONCE ONCE IV 01/02/25 00:00 01/02/25 00:01 DC 01/02/25 00:43 Tranexamic Acid (Cyklokapron) 500 mg Q6H6 IJ 01/02/25 06:00 02/01/25 05:59 UNV Vital Signs Date Time Temp Pulse Resp B/P (MAP) Pulse Ox O2 Delivery O2 Flow Rate FiO2 01/02/25 02:46 100.2 101 14 148/78 98 Ventilator+ 100 01/02/25 01:47 98 100 01/02/25 01:00 124 22 Non Rebreather/Partial 15.0 100 01/02/25 00:10 100.8 130 34 139/68 94 Nasal Cannula* 4 36 01/01/25 23:00 109 18 179/99 99 Nasal Cannula 2.0 Intubation Intubation : Intubation Method: orotracheal Tube Size (cm): 7.5 Medications: Succinylcholine Breath Sounds after Intubation: equal Intubation Complications: no complications Post Intubation Xray: Yes Progress/Xray Impression: ET tube 5 cm above the alysha Critical Care Note Critical Time: 60 minutes Comments Critical care time was spent stabilizing the patient, intubating the patient, ventilating the patient and starting sedating medications. Please see procedure note for intubation DX & DISP Disposition: Inpatient Departure Impression: Primary Impression: Pneumonia Critical Time: 60 minutes Condition: Stable Referrals: RADHA ALTMAN MD (PCP) BAO WILBURN MD Jan 02, 2025 00:13
--- NOTE | 2025-01-02 00:25 | NUR ---
PATIENT COUGHED UP BLOOD, ED MD MADE AWARE.
[2025-01-02] MEDS: hydroMORPHone 2 MG VIAL (2MG/ML) ONE (00:36)
[2025-01-02 00:40] LABS: ALBUMIN 3.9 g/dL (3.5-5.0); ASPARTATE AMINOTRANSFERASE 21 U/L (10-37); BILIRUBIN,DIRECT 0.1 mg/dL (0.0-0.3); BILIRUBIN,TOTAL 0.6 mg/dL (0.2-1.0); TOTAL PROTEIN, SERUM 7.8 g/dL (6.0-8.3)
[2025-01-02 00:42] LABS: ALANINE AMINOTRANSFERASE < 6 U/L (12-78)
[2025-01-02] MEDS: 0.9% NACL 500ML IV.SOLN 500 ML IV ONE (00:43)
[2025-01-02] MEDS: hydroMORPHone 2 MG VIAL (2MG/ML) IVP ONE (00:46)
[2025-01-02 00:59] LABS: ABG BASE EXCESS -6.7 mmol/L (-2.0-3.0); ABG HCO3 19.9 mmol/L (21.0-28.0); ABG OXYGEN SATURATION 91.7 % (94.0-98.0); ABG PCO2 43 mmHg (35-48); CARBON MONOXIDE 0.5 % (0.5-1.5); HHb 8.2; PO2, ARTERIAL BG 68.3 mmHg (83.0-108.0); VENT MODE, BG NC (ROOM AIR)
[2025-01-02 01:08] LABS: RAPID GROUP A STREP negative (NEGATIVE)
[2025-01-02 01:12] LABS: SARS-CoV-2, RNA, NAAT NEGATIVE SARS CoV-2 (NEGATIVE)
[2025-01-02 01:18] LABS: INFLUENZA TYPE A Negative For Type A (NEGATIVE); INFLUENZA TYPE B Negative For Type B (NEGATIVE)
--- NOTE | 2025-01-02 01:35 | NUR ---
PATIENT C/O SOB, COUGHING UP BRIGHT RED BLOOD, ED MD MADE AWARE
--- NOTE | 2025-01-02 01:40 | NUR ---
INTUBATION NOTE: 0130 25MG OF ETOMIDATE GIVEN IVP ODERED BY ED 013 100MG OF SUCCINYLOCHOLINE GIVEN IVP ORDERED BY ED 013 PAIENT INTUBATED AT THIS TIME; 7.5 ETT@25 CM AT THE TEETH 0136 16FR OG TUBE INSERTED
[2025-01-02] MEDS ORDERED: IOHEXOL 350 MG/ML 100ML INFUS..BTL IV ONE (01:53)
[2025-01-02 02:22] LABS: APPEARANCE,URINE CLEAR (CLEAR); BILIRUBIN,URINE NEGATIVE (NEGATIVE); COLOR,URINE LIGHT-YELLOW (YELLOW); GLUCOSE, URINE (UA) >=1000 mg/dL (NEGATIVE); KETONES,URINE 20 mg/dL (NEGATIVE); LEUKOCYTE ESTERASE ,URINE NEGATIVE Leu/uL (NEGATIVE); NITRATE,URINE NEGATIVE (NEGATIVE); OCCULT BLOOD,URINE NEGATIVE (NEGATIVE); PROTEIN,URINE NEGATIVE (NEGATIVE); UROBILINOGEN,URINE 0.2 mg/dL (0.2-1.0)
[2025-01-02 02:23] LABS: ADD UA MICROSCOPIC YES
[2025-01-02 02:24] LABS: BACTERIA,URINE RARE /HPF (None Seen); MUCUS,URINE RARE LPF (None Seen); RBC,URINE 0-1 /HPF (0-1); WBC,URINE 0-1 /HPF (0-1)
[2025-01-02] MEDS: proPOFol 1000 MG/100 ML IV PRN (03:10)
[2025-01-02] MEDS: dexmedeTOMIDine 400MCG/NS100ML IV ONE (03:12)
[2025-01-02] MEDS: FENTanyl 1000MCG+NS 100ML 100 ML IV ONE (03:12)
[2025-01-02] MEDS: proPOFol 1000 MG/100 ML 100 ML IV ONE (03:12)
[2025-01-02] MEDS: FENTanyl 1000MCG+NS 100ML 100 ML IV SCH (03:12)
--- NOTE | 2025-01-02 03:30 | NUR ---
NONOG OPTOMETRY TEACHER MADE AWARE OF CRITICAL CARE CONSULT
[2025-01-02] MEDS: ZOSYN 3.375GM +NS 50ML IV SCH (03:45)
[2025-01-02] MEDS ORDERED: ondanSETRON 4MG INJ IVP PRN (04:00)
[2025-01-02 04:14] LABS: ABG BASE EXCESS -6.2 mmol/L (-2.0-3.0); ABG HCO3 20.7 mmol/L (21.0-28.0); ABG OXYGEN SATURATION 99.1 % (94.0-98.0); ABG PCO2 46 mmHg (35-48); ABG PH 7.269 (7.350-7.450); CARBON MONOXIDE 0.4 % (0.5-1.5); HHb 0.9; PO2, ARTERIAL BG 267.7 mmHg (83.0-108.0); VENT MODE, BG ACVC (ROOM AIR)
[2025-01-02] MEDS: TRANEXAMIC ACID 1000MG/10ML TP SCH (04:21)
--- NOTE | 2025-01-02 04:40 | NUR ---
REPORT GIVEN TO STANLEY MEIER
[2025-01-02] MEDS ORDERED: BIOT1CAP3 PO (04:54)
[2025-01-02] MEDS ORDERED: INSU3INS3 SQ (04:54)
[2025-01-02] MEDS ORDERED: FLUT15.845 NS (04:54)
[2025-01-02] MEDS ORDERED: KETO15CR2 TP (04:54)
[2025-01-02] MEDS ORDERED: BISA-72 PO ×2 (04:54)
[2025-01-02] MEDS ORDERED: EMPA25TA PO (04:54)
[2025-01-02] MEDS ORDERED: MULT-1203 PO (04:54)
[2025-01-02] MEDS ORDERED: CARB-38 PO (04:54)
[2025-01-02] MEDS ORDERED: LINA145C PO (04:54)
[2025-01-02] MEDS ORDERED: POLY15DR67 OP (04:54)
[2025-01-02] MEDS ORDERED: SEMA1PEN3 SQ (04:54)
[2025-01-02] MEDS ORDERED: CHOL100040 PO (04:54)
[2025-01-02] MEDS ORDERED: BENA10TA77 PO (04:54)
[2025-01-02] MEDS ORDERED: IPRA6S NASAL (04:54)
[2025-01-02] MEDS: DOXYCYCLINE 100MG+NS 250ML 250 ML IV SCH (05:07)
[2025-01-02] MEDS: LACTATED RINGERS 1000ML IV STA (05:23)
[2025-01-02 06:27] LABS: BASOPHILS # (AUTO) 0.01 K/uL (0.00-0.20); BASOPHILS % (AUTO) 0.2 % (0.0-5.0); EOSINOPHILS # (AUTO) 0.01 K/uL (0.00-0.70); EOSINOPHILS % (AUTO) 0.2 % (0.0-8.0); HEMATOCRIT 47.8 % (42-54); IMMATURE GRANULOCYTE ABSOLUTE 0.02 K/uL (0-1); LYMPHOCYTES # (AUTO) 0.4 K/uL (1.0-4.8); LYMPHOCYTES % (AUTO) 6.2 % (21.0-51.0); MONOCYTES # (AUTO) 0.7 K/uL (0.1-1.0); MONOCYTES % (AUTO) 10.4 % (3.0-13.0); NEUTROPHILS # (AUTO) 5.2 K/uL (1.8-7.7); NEUTROPHILS % (AUTO) 82.7 % (40.0-77.0); PLATELET COUNT (AUTO) 157 K/uL (130-400); RED BLOOD CELL COUNT(AUTO) 4.78 MIL/uL (4.50-6.20); RED CELL DISTRIBUTION WIDTH 13.3 % (11.0-15.5); WHITE BLOOD COUNT (AUTO) 6.3 K/uL (4.8-10.8)
[2025-01-02 06:41] LABS: CREATININE 1.3 mg/dL (0.5-1.3); MAGNESIUM 1.8 mg/dL (1.80-2.40); POTASSIUM 4.3 mmol/L (3.5-5.1)
--- NOTE | 2025-01-02 06:54 | EKG ---
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
[2025-01-02] MEDS: INSULIN humuLIN R 100 UNIT/ML 3ML SQ SCH (06:58)
--- NOTE | 2025-01-02 08:45 | EKG ---
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
[2025-01-02] MEDS: ENOXAPARIN SODIUM 30 MG/0.3 ML SQ SCH (09:10)
[2025-01-02] MEDS: LANSOPRAZOLE 15 MG SOLU TAB PEG SCH (09:10)
[2025-01-02 09:22] LABS: ABG BASE EXCESS -5.3 mmol/L (-2.0-3.0); ABG HCO3 21.7 mmol/L (21.0-28.0); ABG OXYGEN SATURATION 95.9 % (94.0-98.0); ABG PCO2 48 mmHg (35-48); ABG PH 7.277 (7.350-7.450); PO2, ARTERIAL BG 91.1 mmHg (83.0-108.0); VENT MODE, BG AC (ROOM AIR)
[2025-01-02] MEDS ORDERED: MIDAZOLAM HCL 50 MG in 0.9%NACL 50ML 50 ML IV SCH (09:30)
--- NOTE | 2025-01-02 09:31 | CONS ---
[facility] CONSULTATION NOTE Date Patient Seen: Jan 02, 2025 Time of Visit: 09:30 Supervising Physician: Gustavo Ervin MD Reason for Consultation: Pneumoniae respiratory failure Primary Care Physician: Cielo Bledsoe MD Outpatient Specialists: none Inpatient Consults: Critical care BIS, PROBLEM LIST: Acute hypoxic respiratory failure requiring intubation on 01/01/25 Bilateral Multifocal bacterial pneumonia, POA suspected micro aspiration Suspected aspiration pneumonia, POA Suspected acute on chronic CHF, POA Septic shock, POA requiring pressors Lactic acidosis, POA Elevated D-dimer negative for PE positive for DVT Acute non-anion gap metabolic acidosis, POA Right popliteal DVT, POA Cardiomegaly Parkinson's disease Victorino Parkinson's White syndrome Hyperglycemia in the presence of type 2 diabetes mellitus Pancreatitis, POA Hypomagnesemia HPI: This is a 84-year-old male with a past medical history of Victorino Parkinson's white syndrome, essential hypertension, Parkinson's disease, and type 2 diabetes mellitus who presented to the ED via EMS for evaluation of pain that started suddenly to right lower quadrant radiated to the right chest wall. On arrival to the ED patient was short of breath and unable to hold a conversation. He was intubated in the ED and admitted to the ICU by Dr. Jones. We are consulted for critical care management and pulmonary due to pneumoniae and hypoxemic respiratory failure. On assessment patient was sedated with propofol and fentanyl. He was on mechanical ventilation with settings of assist control volume control tidal volume of 550 respiratory rate of 14 FiO2 50% and PEEP of five. Settings adjusted per ABG to assist-control volume control tidal volume 500 respiratory rate of 20 FiO2 of 50% and PEEP of 5. Patient with 500 mL of urine output this morning. HIV antibody is nonreactive x2 influenza type a and B negative, SARS COVID-19 negative and strep throat. UDS negative. WBCs trended down H&H is 15.3/47.8 and platelet count of 157 K. neutrophils increased slightly today to 82.7. We will add Flagyl for aspiration pneumonia. On chemistry creatinine 1.3 GFR of 55 similar to yesterday. Ult rasound venous Doppler of lower extremities showed right popliteal nonocclusive thrombus. Patient will be started on high-dose Lovenox for DVT and monitor hemoglobin and hematocrit closely we will have to hold if any signs and symptoms of bleeding. Updated patient's on current findings and plan of care. She verbalized agreement with plan of care. Discussed code status; as per patient to remain full code. PAST MEDICAL HX: Parkinson's disease WPW syndrome Essential hypertension Type 2 diabetes mellitus PAST SURGICAL HX: noncontributory SOCIAL HISTORY: No tobacco, Occasional wine drinker Denies illicit drugs Coded Allergies: No Known Allergies (Unverified Allergy, 07/27/13) REVIEW OF SYSTEMS: Unable to perform due to patient's intubated and sedated. PHYSICAL EXAM: GENERAL: Patient is intubated, critically ill, sedated. HEENT: Sclerae nonicteric, moist mucosa. NECK: Supple, no JVD, trachea midline LUNGS: Diminished breath sounds bilaterally. No wheezes HEART: Regular rate and rhythm. Normal S1 and S2, without murmurs ABD: Abdomen firm nontender, hypoactive bowel sounds. EXT: +1 pitting edema to right lower extremity NEURO: Sedated in intubated. Vital Signs (last 8hr) Date Time Temp Pulse Resp B/P (MAP) Pulse Ox O2 Delivery O2 Flow Rate FiO2 01/02/25 09:23 91 50 01/02/25 08:02 100.6 01/02/25 08:00 98 Ventilator+ 40 01/02/25 07:45 100.6 107 14 118/52 (74) 97 01/02/25 07:30 111 14 136/44 (74) 99 01/02/25 07:15 107 14 136/60 (85) 98 01/02/25 07:00 104 14 136/53 (80) 98 01/02/25 06:33 102 50 01/02/25 06:00 99 16 150/77 (101) 94 01/02/25 05:45 98 14 138/60 (86) 94 01/02/25 05:30 97 Ventilator+ 40 01/02/25 05:30 91 14 123/62 (82) 88 01/02/25 05:15 90 14 91 01/02/25 05:14 99.0 90 14 131/62 (85) 92 01/02/25 04:58 98.8 89 14 107/61 96 Ventilator+ 50 01/02/25 04:21 90 14 01/02/25 04:19 97 50 01/02/25 03:53 92 14 111/61 98 Ventilator+ 100 01/02/25 02:46 100.2 101 14 148/78 98 Ventilator+ 100 01/02/25 01:47 98 100 LABS: Hematology Labs: Test 01/02/25 05:51 Range/Units White Blood Count 6.3 # 4.8-10.8 K/uL Red Blood Count 4.78 4.50-6.20 MIL/uL Hemoglobin 15.3 14.0-18.0 g/dL Hematocrit 47.8 42-54 % Mean Corpuscular Volume 100.0 H 79-99 fL Mean Corpuscular Hemoglobin 32.0 27.0-33.0 pg Mean Corpuscular Hemoglobin Concent 32.0 32.0-36.0 g/dL Red Cell Distribution Width 13.3 11.0-15.5 % Platelet Count 157 130-400 K/uL Mean Platelet Volume 10.7 H 7.5-10.5 fL Immature Granulocyte % (Auto) 0.3 0-1 % Neutrophils (%) (Auto) 82.7 H 40.0-77.0 % Lymphocytes (%) (Auto) 6.2 L 21.0-51.0 % Monocytes (%) (Auto) 10.4 3.0-13.0 % Eosinophils (%) (Auto) 0.2 0.0-8.0 % Basophils (%) (Auto) 0.2 0.0-5.0 % Neutrophils # (Auto) 5.2 1.8-7.7 K/uL Lymphocytes # (Auto) 0.4 L 1.0-4.8 K/uL Monocytes # (Auto) 0.7 0.1-1.0 K/uL Eosinophils # (Auto) 0.01 0.00-0.70 K/uL Basophils # (Auto) 0.01 0.00-0.20 K/uL Absolute Immature Granulocyte (auto 0.02 0-1 K/uL Nucleated Red Blood Cells 0.0 0.0-0.19 % White Cell Morphology Comment See comments Chemistry Labs: Test 01/02/25 05:51 01/02/25 00:08 01/01/25 23:31 Range/Units Sodium Level 143 136-145 mmol/L Potassium Level 4.3 3.5-5.1 mmol/L Chloride Level 107 101-111 mmol/L Carbon Dioxide Level 27 21-32 mmol/L Blood Urea Nitrogen 33 H 7-18 mg/dL Creatinine 1.3 0.5-1.3 mg/dL Glomerular Filtration Rate Calc 55 >90 mL/min Random Glucose 167 H 70-105 mg/dL Lactic Acid Level 1.9 0.8-2.5 mmol/L Total Calcium 8.8 8.5-10.1 mg/dL Magnesium Level 1.80 1.80-2.40 mg/dL Troponin I High Sensitivity 14 4-75 ng/L Total Bilirubin 0.6 0.2-1.0 mg/dL Direct Bilirubin 0.1 0.0-0.3 mg/dL Aspartate Amino Transf (AST/SGOT) 21 10-37 U/L Alanine Aminotransferase (ALT/SGPT) < 6 L 12-78 U/L Alkaline Phosphatase 70 50-136 U/L B-Type Natriuretic Peptide 122 H 0-100 pg/mL Total Protein 7.8 6.0-8.3 g/dL Albumin 3.9 3.5-5.0 g/dL Lipase 96 H 16-77 U/L Coagulation Labs: Test 01/01/25 23:31 Range/Units D-Dimer Quantitative (PE/DVT) 5681 *H 0-500 ng/mL DIAGNOSTICS / RADIOLOGY RESULTS: [ ] IMAGING REPORT Signed PATIENT: OMAR HELM MR#: [id number] : 1940 SEX: M AGE: 84 LOCATION: 2BH ORDER 9 STATUS: ADM IN REPORT#: [id number] SERVICE 9 REASON: RULE OUT DVT ORDERING PHYSICIAN: ELLA DICKINSON PROCEDURE: VENOUS ROBERTO - US VENOUS DOPPLER BILATERAL Exam Type: US VENOUS DOPPLER BILATERAL Clinical Information: RULE OUT DVT Comparison: None Findings: The examination shows nonocclusive thrombosis of the right popliteal vein. The rest of the venous structures evaluated shows no evidence of thrombosis. IMPRESSION: Thrombus as noted. DICTATED BY: SAMARA SANCHEZ MD DATE: 01/02/251131 ELECTRONICALLY SIGNED BY: SAMARA SANCHZE MD DATE: 01/02/25 113 IMAGING REPORT Signed PATIENT: OMAR HELM MR#: [id number] : 1940 SEX: M AGE: 84 LOCATION: 2BH ORDER 4 STATUS: ADM IN REPORT#: [id number] SERVICE REASON: S/P INTUBATION ORDERING PHYSICIAN: BAO WILBURN MD PROCEDURE: CXR1VW - CHEST 1VW Exam Type: CHEST 1VW Clinical Information: S/P INTUBATION Comparison: None Findings: Endotracheal tube is noted with tip approximately .1 cm from alysha and no interval changes are seen otherwise. IMPRESSION: Endotracheal tube tip as noted. DICTATED BY: SAMARA SANCHEZ MD DATE: 01/02/25948 ELECTRONICALLY SIGNED BY: SAMARA SANCHEZ MD DATE: 01/02/25952 IMAGING REPORT Signed PATIENT: OMAR HELM MR#: [id number] : 1940 SEX: M AGE: 84 LOCATION: 2BH ORDER 0117 STATUS: ADM IN REPORT#: [id number] SERVICE REASON: aortic aneurysm or PE ORDERING PHYSICIAN: BAO WILBURN MD PROCEDURE: CTA CAP - CT ANGIO CHEST/ABD/PELVIS Exam Type: CT angiogram, abdomen and pelvis with contrast Clinical Information: aortic aneurysm or PE Comparison: None Technique: Routine helical scanning at 5mm collimation through the chest, abdomen and pelvis after contrast administration. In addition, sagittal and coronary formations of the chest, abdomen and pelvis and surface rendering three-dimensional reconstructions of the abdominal aorta were performed. Findings: FINDINGS: The aorta is unremarkable except for mild plaque. No significant dilatation is noted. There is no occlusion. There is no dissection. No significant plaque formation is identified. There is no evidence of pulmonary embolism. The thyroid gland is unremarkable. The airway is intact. The trachea and major bronchi are unremarkable. The chest exam shows no pulmonary nodules or masses. Scattered infiltrates are seen bilaterally involving the lower lobes, with right middle lobe involvement as well consistent with pneumonia. No pleural effusions are identified. The nonenhanced exam of the lizzie and mediastinum is unremarkable. No evidence of hilar enlargement is seen. The aorta shows no aneurysmal dilatation or significant atheromatous calcification. No significant brachiocephalic vascular abnormalities are seen. The heart is unremarkable. It is not enlarged. No significant coronary arterial calcifications are seen. There is no pericardial effusion. The rib cage appears unremarkable. The soft tissues of the chest wall are unremarkable. The dorsal spine shows no significant abnormalities. No evidence of nephro or ureterolithiasis is found. No hydronephrosis or ureteral dilatation is seen. The stomach is unremarkable. It shows no wall thickening. No gross ulceration is seen. It is not overly distended. There are no surrounding inflammatory changes. No wall lesions are identified to suggest cancer. The spleen is unremarkable. It is not enlarged. The pancreas shows normal anatomy. It is not fatty replaced. It shows no lesions. The pancreatic duct is not dilated. The gallbladder is unremarkable. It shows no cholelithiasis. The gallbladder wall is normal in thickness. There is no pericholecystic fluid. The is no acute or chronic inflammation noted. The adrenal glands are unremarkable. There is no enlargement. No lesions are noted. The liver is unremarkable. It shows no focal masses. The appendix is unremarkable. It shows no evidence of inflammation. No appendicolith is seen. The small bowel is unremarkable. There is no evidence of dilatation to suggest obstruction. No evidence of adynamic ileus is seen. There is no small bowel wall thickening to suggest enteritis. There is diverticulosis. There is no evidence of acute inflammation to suggest diverticulitis. The colon is otherwise unremarkable. The urinary bladder is unremarkable. There is no wall thickening to suggest tumor or inflammation. There are no intraluminal calculi. There are no diverticula. There is no evidence of chronic bladder outlet obstruction. There is no evidence of urinary bladder distention to suggest urinary retention. The prostate is prominent. Schmorl node upper endplate L5. Spondylitic and degenerative changes. Impression: Aorta plaque. No pulmonary embolism; bilateral pneumonia. This study was performed using dose reduction techniques to include automated exposure control and/or adjustment of the mA and/or kV according to patient size. DICTATED BY: SAMARA SANCHEZ MD DATE: 01/02/25943 ELECTRONICALLY SIGNED BY: SAMARA SANCHEZ MD DATE: 01/02/25949 IMAGING REPORT Signed PATIENT: OMAR HELM MR#: [id number] : 1940 SEX: M AGE: 84 LOCATION: 2BH ORDER STATUS: ADM IN REPORT#: [id number] SERVICE REASON: r/o free air ORDERING PHYSICIAN: BAO WILBURN MD PROCEDURE: ABD 1VW - ABD 1VW Exam Type: ABD 1VW Clinical Information: r/o free air Comparison: None Findings and impression: Limited upper and mid abdomen demonstrates normal bowel gas pattern and no pneumoperitoneum. DICTATED BY: SAMARA SANCHEZ MD DATE: 01/02/25 0949 ELECTRONICALLY SIGNED BY: SAMARA SANCHEZ MD DATE: 01/02/25 100 Signed PATIENT: OMAR HELM MR#: [id number] : 1940 SEX: M AGE: 84 LOCATION: 2BH ORDER 51 STATUS: ADM IN REPORT#: [id number] SERVICE 50 REASON: sob ORDERING PHYSICIAN: NATI RIVERA PROCEDURE: CXR1VW - CHEST 1VW Exam Type: CHEST 1VW Clinical Information: sob Comparison: None Findings: The lungs are clear of infiltrates. The heart is enlarged. Bony and soft tissue structures of the chest wall are unremarkable. IMPRESSION: Cardiomegaly. Clear lungs. DICTATED BY: SAMARA SANCHEZ MD DATE: 01/02/25 100 ELECTRONICALLY SIGNED BY: SAMARA SANCHEZ MD DATE: 01/02/25 100 PLAN NEURO: Minimize central acting medications as possible. Fall Precautions. PULMONARY: - Acute hypoxic respiratory failure requiring intubation on 01/01/25 - Bilateral Multifocal bacterial pneumonia, POA suspected micro aspiration - Suspected aspiration pneumonia, POA Supplemental 02 as needed Titrate Fio2 to keep Spo2 > or = 90% Atrovent nebs and CPT as needed IS hourly while awake for pulmonary hygiene once extubated Out of bed to chair as tolerated once extubated VAP Bundle Vent/BIPAP Settings assist control volume control tidal volume 500 respiratory rate of 20 FiO2 of 50% and PEEP of five. P Plat: Goal less than 30 CARDIOVASCULAR: -Suspected acute on chronic CHF, POA Cardiac monitoring Cardiac markers Follow hemodynamics. Titrate vasopressor to keep MAP >65 or systolic blood pressure >95mmHg Drips: Fentanyl Versed Levophed LINES: PIV Pending PICC line Consider ABG if hypotension motor frequent ABGs are required GI & NUTRITION: Continue nutritional support Aspirations precautions Prokinetic agents and laxatives as needed KIDNEYS & ELECTROLYTES: Strict monitoring of intake and output Daily weights Avoid nephrotoxic agents Monitor electrolytes and replace as needed Goal urine output of 30mL/hr or 0.5mL/kg/hr Urine output: [ ] Fluid Balance: [ ] ENDOCRINE: Type 2 diabetes mellitus with hyperglycemia Maintain blood glucose between 100-180 at all times. Insulin sliding scale for blood glucose management Add Lantus Hemoglobin A1c TSH INFECTIOUS DISEASE: Septic shock, POA requiring pressors Lactic acidosis, POA, resolved Trend temperature. Milligan-culture if febrile. Micro: Blood cultures Respiratory cultures Influenza a and B negative Strep throat negative COVID-19 negative HIV negative Antibiotics: Cefepime Flagyl Doxycycline HEMATOLOGY & COAGULATION: -Elevated D-dimer negative for PE positive for DVT Right popliteal DVT, POA Monitor H&H. Keep Hgb > 7 Transfuse 1 unit of PRBC for Hgb < 7 Transfuse 1 pack of platelets of platelets < 20, 000 Watch for any signs and symptoms of bleeding Full-dose Lovenox for DVT SKIN: Pressure ulcer prevention per facility protocol Rehab: PT/OT Prophylaxis: GI: Protonix DVT: Lovenox Code Status: Full Resuscitation Disposition: ICU Other: Critical care time This patient required multiple bedside visits to manage the patient, review blood gases, coordinate with respiratory, nurses,review radiology exams, talk to the family members and discuss advanced directives. I personally spent 75] minutes of critical care time in treatment of this patient. This includes patient management, time at bedside, time reviewing tests, labs, appropriate images and studies, documentation, and patient care coordination. This time excludes separately billable procedures. ATTESTATION BY PHYSICIAN I reviewed the documentation, medical decision making, and treatment plan as noted by the mid-level provider above. I agree with the findings and plan of care. Gustavo Ervin MD, NELLY J ARNP Jan 02, 2025 09:31
[2025-01-02] MEDS: NOREPINEPHRIN 4MG/NS 250ML 250 ML IV SCH (09:33)
[2025-01-02] MEDS: NOREPINEPHRIN 4MG/NS 250ML 250 ML IV ONE (09:34)
--- NOTE | 2025-01-02 09:50 | HMCIMG ---
Exam Type: CT angiogram, abdomen and pelvis with contrast Clinical Information: aortic aneurysm or PE Comparison: None Technique: Routine helical scanning at 5mm collimation through the chest, abdomen and pelvis after contrast administration. In addition, sagittal and coronary formations of the chest, abdomen and pelvis and surface rendering three-dimensional reconstructions of the abdominal aorta were performed. Findings: FINDINGS: The aorta is unremarkable except for mild plaque. No significant dilatation is noted. There is no occlusion. There is no dissection. No significant plaque formation is identified. There is no evidence of pulmonary embolism. The thyroid gland is unremarkable. The airway is intact. The trachea and major bronchi are unremarkable. The chest exam shows no pulmonary nodules or masses. Scattered infiltrates are seen bilaterally involving the lower lobes, with right middle lobe involvement as well consistent with pneumonia. No pleural effusions are identified. The nonenhanced exam of the lizzie and mediastinum is unremarkable. No evidence of hilar enlargement is seen. The aorta shows no aneurysmal dilatation or significant atheromatous calcification. No significant brachiocephalic vascular abnormalities are seen. The heart is unremarkable. It is not enlarged. No significant coronary arterial calcifications are seen. There is no pericardial effusion. The rib cage appears unremarkable. The soft tissues of the chest wall are unremarkable. The dorsal spine shows no significant abnormalities. No evidence of nephro or ureterolithiasis is found. No hydronephrosis or ureteral dilatation is seen. The stomach is unremarkable. It shows no wall thickening. No gross ulceration is seen. It is not overly distended. There are no surrounding inflammatory changes. No wall lesions are identified to suggest cancer. The spleen is unremarkable. It is not enlarged. The pancreas shows normal anatomy. It is not fatty replaced. It shows no lesions. The pancreatic duct is not dilated. The gallbladder is unremarkable. It shows no cholelithiasis. The gallbladder wall is normal in thickness. There is no pericholecystic fluid. The is no acute or chronic inflammation noted. The adrenal glands are unremarkable. There is no enlargement. No lesions are noted. The liver is unremarkable. It shows no focal masses. The appendix is unremarkable. It shows no evidence of inflammation. No appendicolith is seen. The small bowel is unremarkable. There is no evidence of dilatation to suggest obstruction. No evidence of adynamic ileus is seen. There is no small bowel wall thickening to suggest enteritis. There is diverticulosis. There is no evidence of acute inflammation to suggest diverticulitis. The colon is otherwise unremarkable. The urinary bladder is unremarkable. There is no wall thickening to suggest tumor or inflammation. There are no intraluminal calculi. There are no diverticula. There is no evidence of chronic bladder outlet obstruction. There is no evidence of urinary bladder distention to suggest urinary retention. The prostate is prominent. Schmorl node upper endplate L5. Spondylitic and degenerative changes. Impression: Aorta plaque. No pulmonary embolism; bilateral pneumonia. This study was performed using dose reduction techniques to include automated exposure control and/or adjustment of the mA and/or kV according to patient size.
--- NOTE | 2025-01-02 09:53 | HMCIMG ---
Exam Type: CHEST 1VW Clinical Information: S/P INTUBATION Comparison: None Findings: Endotracheal tube is noted with tip approximately .1 cm from alysah and no interval changes are seen otherwise. IMPRESSION: Endotracheal tube tip as noted.
[2025-01-02] MEDS ORDERED: MAGNESIUM 2GM PREMIX 50ML 50 ML IV SCH (10:00)
--- NOTE | 2025-01-02 10:04 | HMCIMG ---
Exam Type: ABD 1VW Clinical Information: r/o free air Comparison: None Findings and impression: Limited upper and mid abdomen demonstrates normal bowel gas pattern and no pneumoperitoneum.
--- NOTE | 2025-01-02 10:05 | HMCIMG ---
Exam Type: CHEST 1VW Clinical Information: sob Comparison: None Findings: The lungs are clear of infiltrates. The heart is enlarged. Bony and soft tissue structures of the chest wall are unremarkable. IMPRESSION: Cardiomegaly. Clear lungs.
[2025-01-02 10:09] LABS: AMPHET/METH SCREEN,URINE NEGATIVE (NEGATIVE); BARBITURATE SCREEN, URINE NEGATIVE (NEGATIVE); BENZODIAZEPINES SCREEN,URINE NEGATIVE (NEGATIVE); CANNABINOID SCREEN,URINE NEGATIVE (NEGATIVE); COCAINE SCREEN,URINE NEGATIVE (NEGATIVE); OPIATE SCREEN,URINE NEGATIVE (NEGATIVE); PHENCYCLIDINE SCREEN,URINE NEGATIVE (NEGATIVE)
[2025-01-02] MEDS ORDERED: SUCCINYLCHOLINE CHLORIDE 20 MG/ML 10 ML VIAL IVP ONE (10:39)
[2025-01-02 11:00] LABS: INR 1.08 (0.85-1.15); PROTHROMBIN TIME 11.4 SEC (9.6-11.6)
[2025-01-02 11:01] LABS: PARTIAL THROMBOPLASTIN TIME 30.2 SEC (26.3-35.5)
[2025-01-02] MEDS: MIDAZOLAM 50MG-0.9% NS 50ML 50 ML IV SCH (11:08)
[2025-01-02] MEDS: ceFEPime HCL 1 GM VIAL IVPB SCH (11:11)
--- NOTE | 2025-01-02 11:35 | HMCIMG ---
Exam Type: US VENOUS DOPPLER BILATERAL Clinical Information: RULE OUT DVT Comparison: None Findings: The examination shows nonocclusive thrombosis of the right popliteal vein. The rest of the venous structures evaluated shows no evidence of thrombosis. IMPRESSION: Thrombus as noted.
[2025-01-02 11:52] LABS: HIV 1&2 ANTIBODY Non-Reactive (Negative); HIV-1 p24 Antigen Non-Reactive (Negative)
[2025-01-02 11:57] LABS: ABG BASE EXCESS -6.3 mmol/L (-2.0-3.0); ABG HCO3 19.6 mmol/L (21.0-28.0); ABG OXYGEN SATURATION 96.2 % (94.0-98.0); ABG PCO2 40 mmHg (35-48); ABG PH 7.306 (7.350-7.450); CARBON MONOXIDE 0.9 % (0.5-1.5); HHb 3.7; PO2, ARTERIAL BG 85.6 mmHg (83.0-108.0); VENT MODE, BG AC (ROOM AIR)
[2025-01-02] MEDS: LEVODOPA PO SCH ×2 (14:00→22:43)
[2025-01-02] MEDS: CARBIDOPA PO SCH ×2 (14:00→22:43)
[2025-01-02] MEDS: metRONIDazole 500MG/100ML BAG 100 ML IVPB SCH (14:06)
[2025-01-02] MEDS: Solu-medROL 40MG VIAL IVP SCH (14:21)
[2025-01-02 14:23] LABS: CREATININE 1.6 mg/dL (0.5-1.3); MAGNESIUM 2.1 mg/dL (1.80-2.40); POTASSIUM 3.9 mmol/L (3.5-5.1)
[2025-01-02] MEDS: IpraTROPium 0.5 MG/2.5 ML INH IH SCH (14:52)
--- NOTE | 2025-01-02 15:03 | HMCIMG ---
Exam Type: CHEST 1VW Clinical Information: et tube position Comparison: None Findings: Endotracheal tube is noted with tip approximately 3.9 cm from alysha and no interval changes are seen otherwise. IMPRESSION: Endotracheal tube tip as noted.
[2025-01-02] MEDS: MAGNESIUM CITRATE 296 ML SOLUTION PO ONE (15:25)
[2025-01-02] MEDS ORDERED: PoTASSium chloRIDE 20MEQ/100ML 100 ML IV PRN (15:30)
[2025-01-02] MEDS: PoTASSium chl 10% ELIXIR 20MEQ 20 MEQ/15 ML UDCUP PO PRN (15:41)
--- NOTE | 2025-01-02 16:15 | NUR ---
SPEECH TRIGGER COMPLETED (INTUBATION). Pt IS AN 84 Y.O. MALE ADMITTED SECONDARY TO RESPIRATORY FAILURE AND PNA. Pt HAS A PAST MEDICAL HISTORY SIGNIFICANT FOR ESSENTIAL HYPERTENSION, NIK PARKINSON'S DISEASE, PARKINSON'S DISEASE AND TYPE 2 DM. Pt CURRENTLY INTUBATED AND NPO. PLEASE REQUEST SPEECH THERAPY SERVICES FOR SKILLED BEDSIDE SWALLOW EVALUATION 24 HOURS POST EXTUBATION IF ANY S/S OF ASPIRATION ARISE WITH ORAL INTAKE. VICTORIAN LITERATURE PROFESSOR COORDINATED WITH NURSE WHITLOCK AND CARMELITA. ALL QUESTIONS ANSWERED AT THIS TIME. Addendum: 01/03/25 at 1329 by [facility] Amended: Links added.
[2025-01-02] MEDS: FENTanyl 2500MCG+NS 250ML 250 ML IV SCH (17:10)
--- NOTE | 2025-01-02 17:19 | HMCIMG ---
Exam Type: CHEST 1VW Clinical Information: PICC PLACEMENT Comparison: January 02, 2025 at 1407 hours Findings: RightPICC line is noted with tip within the distal superior vena cava and there are no other interval changes.(A IMPRESSION: Right PICC line as noted.
[2025-01-02 20:25] LABS: CREATINE KINASE, TOTAL 170 U/L (21-232)
--- NOTE | 2025-01-02 20:28 | NUR ---
Troponin 617 reported to Mary MEIER.
--- NOTE | 2025-01-02 20:30 | NUR ---
REPORTED TO SANYA SCHROEDER NP THAT PT WS HAVING FREQUENT ECTOPY ON MONITOR AND WAS TENSE. PROVIDED N.O. FOR EKG, TROPONIN, BNP, STAT CXR, STAT ABG+. ORDERS CARRIED OUT.
[2025-01-02 20:31] LABS: ABG BASE EXCESS -8.3 mmol/L (-2.0-3.0); ABG HCO3 17.9 mmol/L (21.0-28.0); ABG OXYGEN SATURATION 91.1 % (94.0-98.0); ABG PCO2 39 mmHg (35-48); ABG PH 7.275 (7.350-7.450); CARBON MONOXIDE 0.8 % (0.5-1.5); HHb 8.8; PO2, ARTERIAL BG 61.9 mmHg (83.0-108.0); VENT MODE, BG ACVC (ROOM AIR)
--- NOTE | 2025-01-02 20:35 | NUR ---
REPORTED ABG+ RESULTS TO MIKHAIL SEGUNDO. N.O. 2 AMPS OF BICARB, CALCIUM REPLACEMENT PROTOCOL. ADV TROPONIN OF 613. N.O. CARDIOLOGY CONSULT FOR AM, TROPONIN Q6H X2. ORDERS CARRIED OUT. AT 2036 ELLA DICKINSON NP CALLED TO NOTIFY THAT ON PATIENTS CXR FOR PICC PLACEMENT VERIFICATION THAT IT APPEARS THAT PT HAS PNEUMOTHORAX BUT WAS NOT IN RADIOLOGY REPORT. ADV STAT CXR PENDING. MIKHAIL SEGUNDO ADV OF INFORMATION. FREDY JIANG NP NOTIFIED HE IS ASSIGNED IN THE HOSPITAL.
--- NOTE | 2025-01-02 21:15 | NUR ---
FREDY JIANG, MANAGER BACKGROUND REVIEWED STAT CXR, AND ORDERED CHEST TUBE INSERTION. PT'S SPOUSE NOTIFIED VIA TELEPHONE AND PROVIDED VERBAL CONSENT WITH ONE OTHER RN WITNESS. PT REMAINS SEDATED WITH RASS SCORE OF -1, INCREASED SEDATION TO ACHIEVE RASS -2. Min JIANG MANAGER BACKGROUND INSERTED CT USING STERILE TECHNIQUE AT BEDSIDE. CT TO 20 MMHG SUCTION WITH SANGUINEOUS DRAINAGE. VS HR 92, BP MAP >65, SPO2 @98% WITH 60% FI02. WILL CONT TO MONITOR PATIENT.
--- NOTE | 2025-01-02 21:31 | HMCIMG ---
Exam Type: CHEST 1VW Clinical Information: r/o pneumothorax Comparison: January 02, 2025 Findings and impression: Examination is stable. Again, right hydropneumothorax is seen, approximately 30%, within adjacent to what is suspected to represent trapped lung.
[2025-01-02] MEDS ORDERED: CALCIUM GLUC 1GM/10ML VIAL IV PRN (22:00)
[2025-01-02] MEDS: ENOXAPARIN SODIUM 100 MG/1 ML SQ SCH (22:37)
[2025-01-02] MEDS: PANTOPrazole 40 MG/VIAL IVP SCH (22:38)
[2025-01-02] MEDS: SODIUM BICARB 50MEQ 50ML VIAL IV ONE (22:38)
[2025-01-02] MEDS: INSULIN GLARgine 100 UNITS/ML 10 ML VIAL SQ SCH (22:39)
[2025-01-02] MEDS: CALCIUM GLUC 1GM 1 GM in 0.9%NACL 50ML 50 ML IV SCH (22:44)
--- NOTE | 2025-01-02 23:23 | PRN ---
Diagnosis: Right moderate-sized pneumothorax Right. PERCUTANEOUS CHEST TUBE PLACEMENT. CONSENT WAIVED DUE TO EMERGENCY PROCEDURE TIME OUT PER HOSPITAL PROTOCOL HAND HYGIENE LIDOCAINE 1% 5 ML A time-out was completed verifying correct patient, procedure, site. The patient was positioned appropriately for chest tube placement. The patient's right chest was prepped and draped in a sterile fashion. 1% lidocaine was used to anesthetize the surrounding skin area. A needle was inserted into the pleural space after identifying an adequate area. There was a rodrigues of air on placement. A guidewire was introduced into the pleural space. A 2 cm skin incision was made in the mid axillary line. The tract was dilated and a catheter was inserted over guidewire. The chest tube was sutured securely to the skin and a sterile dressing applied. The patient tolerated the procedure well and there were no complications. Postprocedure chest x-ray confirmed placement with complete resolution of the pneumothorax. We will await official chest x- ray results. NONOG,FREDY Arvizu APRN Jan 02, 2025 23:23
[2025-01-03] VITALS (105 sets, daily range): BP systolic 84–144; BP diastolic 39–77; PULSE 83–148; RESP 10–23; TEMP 98.1–98.9; O2SAT 93–98
--- NOTE | 2025-01-03 00:16 | HMCSR ---
APPROVED REPORT EXAM: Two-dimensional and M-mode echocardiogram with Doppler and color Doppler. INDICATION ICD: Assess left ventricular function 2D Dimensions RVDd4.1 cmLVEF(%)54.8 (>50%)LVED Vol(simp.)64.0 mL IVSd1.4 (0.7-1.1cm)FS(%)28 %LVES Vol(simp.)25.0 mL LVDd4.3 (3.8-5.6cm)Ao Root(2D)3.5 (2.0-3.7cm)LVEF(%, simp.)61 % PWd1.0 (0.7-1.1cm)LVOT diam1.9 (1.8-2.4cm)LA ESV INDEX (BP)34.75 mL/m2 IVSs1.4 cmIVC diam2.5 cm LVDs3.1 (2.5-4.0cm) PWs1.9 cm Deformation Strain Apical 4-16.9 % Apical 2-15.7 % Apical 3-19.5 % Global Strain-17.4 % M-Mode Dimensions EPSS0.9 cm LA (MM)4.2 (1.6-4.0cm) Ao Root(MM)3.2 (2.0-3.7cm) Aortic Valve AoV Vmax2.1 m/Saundra Peak GR17.2 mmHgLVOT Vmax1.0 m/s AoV VTI0.3 mAo Mean GR9.4 mmHgLVOT VTI0.17 m EJ (VMAX)1.68 cm2AVA (VTI) 1.7 cm2 Mitral Valve MV E Vmax64.5 cm/sDECEL Qyzn158 ms MV A Vmax92.6 cm/sP 1/2 T60 ms E/A ratio0.7MVA (PHT)3.6 cm2 TDI E/E' Ekxbgp97.6E/E' Lateral8.8 Medial E' Peak V4.76 cm/sLateral E' Peak V7.34 cm/s Pulmonary Valve PV Vmax1.2 m/sPV Mean GR2.7 mmHg PV Peak GR5.9 mmHg Tricuspid Valve TR Vmax2.6 m/sRAP (EST) 15 htRtVGFS91.3 mmHg TR Peak GR27.3 mmHg Left Ventricle The left ventricle is normal size. No regional wall motion abnormalities noted. Mild concentric left ventricular hypertrophy. Left ventricular systolic function is normal, estimated LVEF is 60 to 65%. S tage I diastolic dysfunction. Right Ventricle The right ventricle is normal size. Right ventricular systolic function is normal. Atria The left atrium is mildly dilated, 40 mL/m. The right atrium is dilated. Aortic Valve Aortic valve is trileaflet. The leaflets are thickened and calcified. Trace aortic regurgitation. Can not exclude aortic valve vegetation. Mild aortic stenosis: Peak velocity 2.3 m/s, mean gradient 13 mm Hg. Mitral Valve The mitral valve is normal in structure and function. Trace mitral regurgitation. There is a small s ized, freely mobile, echodense mass seen on the anterior leaflet of the mitral valve. There is no rudy ral valve stenosis. Tricuspid Valve The tricuspid valve is normal in structure. Mild tricuspid regurgitation. RVSP is 27 mmHg. Pulmonic Valve Pulmonic valve is not well visualized. Great Vessels The aortic root is normal in size. IVC is dilated and collapses <50% with inspiration. Pericardium There is no pericardial effusion. Other Information Quality : Technically difficult study due to body habitus pt intubated. Conclusion The left atrium is mildly dilated, 40 mL/m. The right atrium is dilated. Mild concentric left ventricular hypertrophy. No regional wall motion abnormalities noted. Left ventricular systolic function is normal, estimated LVEF is 60 to 65%. Stage I diastolic dysfunction. Mild aortic stenosis: Peak velocity 2.3 m/s, mean gradient 13 mmHg. Trace aortic regurgitation. Cannot exclude aortic valve vegetation. There is a small sized, freely mobile, echodense mass seen on the anterior leaflet of the mitral valv e. The findings are concerning for bacterial endocarditis affecting the mitral valve. Clinical tex elation is advised. Trace mitral regurgitation. Mild tricuspid regurgitation. PASP is 35 mmHg. There is no pericardial effusion.
[2025-01-03] MEDS: furoSEMIDE 40MG VIAL IV SCH (01:54)
[2025-01-03 02:14] LABS: ABG BASE EXCESS -4.8 mmol/L (-2.0-3.0); ABG HCO3 21.5 mmol/L (21.0-28.0); ABG OXYGEN SATURATION 95.7 % (94.0-98.0); ABG PCO2 44 mmHg (35-48); ABG PH 7.306 (7.350-7.450); CARBON MONOXIDE 0.8 % (0.5-1.5); HHb 4.2; PO2, ARTERIAL BG 83.4 mmHg (83.0-108.0); VENT MODE, BG AC VC (ROOM AIR)
[2025-01-03] MEDS: PoTASSium chloRIDE 20MEQ/100ML 100 ML IV PRN (02:32)
[2025-01-03 02:42] LABS: BASOPHILS # (AUTO) 0.05 K/uL (0.00-0.20); BASOPHILS % (AUTO) 0.7 % (0.0-5.0); EOSINOPHILS % (AUTO) 1.4 % (0.0-8.0); HEMATOCRIT 44.7 % (42-54); IMMATURE GRANULOCYTE ABSOLUTE 0.04 K/uL (0-1); LYMPHOCYTES # (AUTO) 0.2 K/uL (1.0-4.8); LYMPHOCYTES % (AUTO) 3.3 % (21.0-51.0); MEAN CORPUSCULAR HEMOGLOBIN 31.9 pg (27.0-33.0); MEAN CORPUSCULAR HGB CONC 32.4 g/dL (32.0-36.0); MEAN CORPUSCULAR VOLUME 98.5 fL (79-99); MONOCYTES # (AUTO) 0.4 K/uL (0.1-1.0); NEUTROPHILS # (AUTO) 6.4 K/uL (1.8-7.7); NEUTROPHILS % (AUTO) 88.1 % (40.0-77.0); PLATELET COUNT (AUTO) 136 K/uL (130-400); RED BLOOD CELL COUNT(AUTO) 4.54 MIL/uL (4.50-6.20); RED CELL DISTRIBUTION WIDTH 13.9 % (11.0-15.5); WHITE BLOOD COUNT (AUTO) 7.3 K/uL (4.8-10.8)
[2025-01-03 02:54] LABS: HEMOGLOBIN A1C 6.2 % (4.0-6.0)
[2025-01-03] MEDS: acetaMINOPHEN 650 MG/20.3 ML UDCUP ONE (02:55)
[2025-01-03 03:07] LABS: ALBUMIN 2.6 g/dL (3.5-5.0); ASPARTATE AMINOTRANSFERASE 28 U/L (10-37); BILIRUBIN,TOTAL 1.1 mg/dL (0.2-1.0); CARBON DIOXIDE 25 mmol/L (21-32); CHLORIDE 110 mmol/L (101-111); CHOLESTEROL 176 mg/dL (<200); CREATININE 1.4 mg/dL (0.5-1.3); GLOMERULAR FILTR. RATE CALC 50 mL/min (>90); GLUCOSE,RANDOM 157 mg/dL (70-105); HDL CHOLESTEROL 91 mg/dL (29-71); LDL DIRECT 72 mg/dL (0-99); POTASSIUM 4.5 mmol/L (3.5-5.1); SODIUM SERUM 145 mmol/L (136-145); THYROID STIMULATING HORMONE 0.73 uIU/mL (0.36-3.74); TRIGLYCERIDES 56 mg/dL (30-200); UREA NITROGEN, BLOOD 38 mg/dL (7-18)
[2025-01-03 03:09] LABS: ALANINE AMINOTRANSFERASE < 6 U/L (12-78)
--- NOTE | 2025-01-03 03:17 | HP ---
DATE OF SERVICE: 01/02/2025 HISTORY AND PHYSICAL PRESENTING COMPLAINT: Chest pain, cough and fever. HISTORY OF PRESENT ILLNESS: An 84-year-old male with history of Parkinson's disease, diabetes mellitus, hypertension, and obesity, presented to the hospital with the above complaint. The patient's symptoms started suddenly around 8 p.m. last night. As per the , the patient was doing well, but suddenly complained of cough and shortness of breath. The patient also had some chills and fever, brought to the Emergency Room, was found with temperature of 100.8. The patient also found with a lactic acid of 3.4. WBC elevated at 11,000. D-dimer found to be elevated. CT angiogram of the chest and abdomen and pelvis was done, which was negative for pulmonary embolism, bilateral pneumonia. Venous Doppler of lower extremities shows right popliteal thrombosis. The patient continued to be in distress and was intubated and transferred to ICU. The patient was started on antibiotics. PAST MEDICAL HISTORY: * Parkinson's disease. * Diabetes mellitus. * Obesity. * Hypertension. * WPW syndrome. * Osteoarthritis. * Colon polyps. PAST SURGICAL HISTORY: * Ear surgery. * Tonsillectomy. * Colonoscopy. * Lumbar laminectomy. ALLERGIES: No known drug allergies. MEDICATIONS: Reviewed. SOCIAL HISTORY: No alcohol or tobacco use. No illicit drug use. Lives with . FAMILY HISTORY: Positive for diabetes mellitus. REVIEW OF SYSTEMS: Available history obtained from . The patient at present intubated and sedated. PHYSICAL EXAMINATION: GENERAL: An elderly male, intubated, ill-looking. VITAL SIGNS: Temperature 100.6, pulse 130, respiratory rate 34, BP 139/68. EYES: No uterus. Pupils equal and reactive. HENT: No oral thrush seen. Moist oral mucosa. NECK: Supple. No JVD or thyromegaly. LUNGS: Crackles bilaterally. No rhonchi. CARDIOVASCULAR: S1 and S2. Regular. No murmur heard. ABDOMEN: Obese, soft. Bowel sounds present. CENTRAL NERVOUS SYSTEM: The patient is sedated. Withdrawal to tactile stimuli. SKIN: No rashes. No itchiness. LYMPHATIC: No peripheral lymphadenopathy. MUSCULOSKELETAL: No joint swelling, erythema or tenderness. BACK: No deformity. No pressure ulcer. LABORATORY DATA: Lactic acid 3.4. Sodium 142, potassium 4.3, BUN 32, creatinine 1.3. WBC 11.1, hemoglobin 16.0, platelets 201. RADIOLOGY: CT shows no pulmonary embolism, but possible bilateral pneumonia. Venous Doppler lower extremities shows right popliteal thrombosis. ASSESSMENT: An 84-year-old male presented with fever, cough, and shortness of breath. Current problems include: * Sepsis. * Multifocal pneumonia. * Hypoxic respiratory failure, status post infection. * Diabetes mellitus. * Right popliteal deep vein thrombosis. * Obesity. PLAN: * Admit the patient to ICU. * Continue ventilator support. * Continue cefepime. * Continue doxycycline. * Continue Flagyl. * Insulin sliding scale. * Lovenox for DVT prophylaxis. * Monitor electrolytes and correct as needed. * The patient will be followed closely. TID: [id number] RECEIPT: [id number] MTDD
--- NOTE | 2025-01-03 07:34 | NUR ---
DCP: HOME vs MD Recommendations Pt is currently intubated, SW spoke to Nadege [phone]. Couple lives in [place]. Per , the day pt was became ill, he had been working in yard, described pt as extremely active and independent prior to admission. Pt able to complete self care on his own, drove, uses no DME or in home care services. PCP is Umer Beth and uses [facility] in [place] for rx needs. At this time, not sure of dc needs, hopeful that pt can return home at [place], open to MD recommendations. CM to follow and assist as needed Addendum: 01/03/25 at 0738 by AVRIL RAGSDALE Amended: Links added.
[2025-01-03 08:19] LABS: MEAN CORPUSCULAR HEMOGLOBIN 32.2 pg (27.0-33.0); MEAN CORPUSCULAR HGB CONC 32.6 g/dL (32.0-36.0); MEAN CORPUSCULAR VOLUME 98.8 fL (79-99); RED BLOOD CELL COUNT(AUTO) 4.25 MIL/uL (4.50-6.20); RED CELL DISTRIBUTION WIDTH 13.9 % (11.0-15.5); WHITE BLOOD COUNT (AUTO) 7.6 K/uL (4.8-10.8)
[2025-01-03 08:32] LABS: CREATININE 1.3 mg/dL (0.5-1.3); POTASSIUM 4.5 mmol/L (3.5-5.1)
[2025-01-03] MEDS ORDERED: ENOXAPARIN SODIUM 40 MG/0.4 ML SYRINGE SQ SCH (09:00)
[2025-01-03] MEDS: MULTIVITAMIN TABLET PO SCH (09:00)
[2025-01-03] MEDS ORDERED: PANTOPrazole 40 MG/VIAL IVP SCH (09:00)
[2025-01-03] MEDS: CHOLECALCIFEROL PO SCH (09:00)
[2025-01-03] MEDS: BisaCODYL 5 MG TABLET.DR PO SCH (09:00)
[2025-01-03] MEDS: POLYETHYLENE GLYCOL OP SCH (09:03)
[2025-01-03] MEDS: LINACLOTIDE PO SCH (09:04)
--- NOTE | 2025-01-03 09:32 | HMCIMG ---
Exam Type: CHEST 1VW Clinical Information: chest tube placement Comparison: None Findings and impression: Insertion of a right chest tube in place with reexpansion of the right lung and elevation of the right hydropneumothorax. No other interval changes.
--- NOTE | 2025-01-03 10:10 | HMCIMG ---
Exam Type: CHEST 1VW Clinical Information: et tube position Comparison: None Findings: Pulmonary pattern is as before. No worrisome interval changes have taken place. Impression: Stable exam.
[2025-01-03] MEDS: dexmedeTOMIDine 400MCG/NS100ML IV SCH (10:48)
--- NOTE | 2025-01-03 10:53 | EKG ---
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
[2025-01-03 11:02] LABS: ABG BASE EXCESS -8.2 mmol/L (-2.0-3.0); ABG HCO3 19.2 mmol/L (21.0-28.0); ABG OXYGEN SATURATION 94.5 % (94.0-98.0); ABG PCO2 46 mmHg (35-48); ABG PH 7.235 (7.350-7.450); DEVICE COMMENT RR; VENT MODE, BG AC (ROOM AIR)
[2025-01-03] MEDS: SODIUM BICARB 50MEQ 50ML VIAL IV ONE ×2 (11:04→11:22)
--- NOTE | 2025-01-03 11:18 | EKG ---
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
--- NOTE | 2025-01-03 11:24 | PN ---
[facility] PROGRESS NOTE Date Patient Seen: Jan 03, 2025 Time of Visit: 11:24 Supervising Physician: Massimo Blas MD Primary Care Physician: Cielo Bledsoe MD Outpatient Specialists: none Inpatient Consults: Critical care BIS, PROBLEM LIST: Acute hypoxic respiratory failure requiring intubation on 01/01/25 Bilateral Multifocal bacterial pneumonia, POA suspected micro aspiration Suspected aspiration pneumonia, POA Suspected acute on chronic CHF, POA Septic shock, POA requiring pressors suspected mitral bacterial endocarditis, (ruled out) Lactic acidosis, POA Elevated D-dimer negative for PE positive for DVT Acute non-anion gap metabolic acidosis, POA Right popliteal DVT, POA Cardiomegaly Parkinson's disease Victorino Parkinson's White syndrome Hyperglycemia in the presence of type 2 diabetes mellitus Pancreatitis, POA Hypomagnesemia INTERVAL HISTORY: Overnight patient developed a pneumothorax post PICC line to right side. Chest tube was placed with 500 mL of output. Resolution of pneumothorax noted on chest x-ray this morning. Patient off sedation this morning, grimacing to face noted but not waking up. 2D echo with left ventricular systolic function normal estimated LVEF is 60 65% there was a concern for mobile echodense mass seen to leaflet of mitral valve concerning for bacterial endocarditis affecting mitral valve and can not exclude aortic valve vegetation. Cardiology was consulted and SMITA was performed ruled out infective endocarditis no valvulopathy noted. CT head and brain ordered without contrast. Tolerated CPAP with pressure support of 10 throughout the day. Placed back on assist-control volume control at HS. Due to patient tachycardic from 100-130 change Levophed to phenylephrine at 0.5 mcg/kg per minute with a good blood pressure and map above 65. Heart rate showed improvement. Urine output 3 L in the last 24 hours. White count normal H&H stable 13.7/42 with a platelet count of 122 K. chemistries shows sodium of 146 potassium of 4.5 chloride 112 carbon dioxide of 20 BUN of 39 creatinine of 1.3 and GFR of 55. Tube feeding started with water flushes of 150 mL q.4 hours per NG tube. Pending dietary recommendation. Respiratory culture growing Gram- positive and Gram-negative rods. We will continue daily sedation vacation and spontaneous breathing trials. Updated patient's who was at the bedside answered all her questions and agrees with plan of care. REVIEW OF SYSTEMS: Unable to perform due to patient's intubated and sedated. PHYSICAL EXAM: GENERAL: Patient is intubated, critically ill, HEENT: Sclerae nonicteric, moist mucosa. NECK: Supple, no JVD, trachea midline LUNGS: Clear breath sounds bilaterally. No wheezes HEART: Regular rate and rhythm. Normal S1 and S2, without murmurs ABD: Abdomen firm nontender, hypoactive bowel sounds. EXT: +1 pitting edema to right lower extremity NEURO: Coming off sedation, facial grimacing noted. Vital Signs (last 8hr) Date Time Temp Pulse Resp B/P (MAP) Pulse Ox O2 Delivery O2 Flow Rate FiO2 01/03/25 09:41 110 60 01/03/25 08:00 98.8 01/03/25 07:02 120 60 01/03/25 07:01 120 20 01/03/25 07:00 132 20 135/61 (85) 95 60 01/03/25 06:45 123 20 113/58 (76) 94 60 01/03/25 06:30 124 20 119/57 (77) 94 60 01/03/25 06:15 135 20 120/57 (78) 100 60 01/03/25 06:00 93 20 107/55 (72) 99 60 01/03/25 05:45 92 21 129/75 (93) 99 60 01/03/25 05:30 93 20 117/58 (77) 98 60 01/03/25 05:15 96 20 120/61 (80) 98 60 01/03/25 05:00 94 20 129/51 (77) 98 60 01/03/25 04:45 96 20 125/50 (75) 98 60 01/03/25 04:30 95 20 114/50 (71) 98 60 01/03/25 04:15 90 21 96/54 (68) 97 60 01/03/25 04:06 89 60 01/03/25 04:00 98 Ventilator+ 40 01/03/25 04:00 98.2 01/03/25 04:00 98.2 88 20 120/64 (82) 98 60 01/03/25 04:00 60 01/03/25 03:45 88 20 108/63 (78) 98 60 01/03/25 03:30 93 20 111/59 (76) 98 60 LABS: Hematology Labs: Test 01/03/25 07:52 4/23/25 02:34 01/02/25 05:51 Range/Units White Blood Count 7.6 4.8-10.8 K/uL Red Blood Count 4.25 L 4.50-6.20 MIL/uL Hemoglobin 13.7 L 14.0-18.0 g/dL Hematocrit 42.0 42-54 % Mean Corpuscular Volume 98.8 79-99 fL Mean Corpuscular Hemoglobin 32.2 27.0-33.0 pg Mean Corpuscular Hemoglobin Concent 32.6 32.0-36.0 g/dL Red Cell Distribution Width 13.9 11.0-15.5 % Platelet Count 122 L 130-400 K/uL Mean Platelet Volume 10.9 H 7.5-10.5 fL Nucleated Red Blood Cells 0.0 0.0-0.19 % Immature Granulocyte % (Auto) 0.5 0-1 % Neutrophils (%) (Auto) 88.1 H 40.0-77.0 % Lymphocytes (%) (Auto) 3.3 L 21.0-51.0 % Monocytes (%) (Auto) 6.0 3.0-13.0 % Eosinophils (%) (Auto) 1.4 0.0-8.0 % Basophils (%) (Auto) 0.7 0.0-5.0 % Neutrophils # (Auto) 6.4 1.8-7.7 K/uL Lymphocytes # (Auto) 0.2 L 1.0-4.8 K/uL Monocytes # (Auto) 0.4 0.1-1.0 K/uL Eosinophils # (Auto) 0.10 0.00-0.70 K/uL Basophils # (Auto) 0.05 0.00-0.20 K/uL Absolute Immature Granulocyte (auto 0.04 0-1 K/uL White Cell Morphology Comment See comments Chemistry Labs: Test 01/03/25 07:53 01/03/25 07:52 01/03/25 02:34 01/02/25 21:15 Range/Units Whole Blood Glucose 138 H 70-110 MG/DL Sodium Level 146 H 136-145 mmol/L Potassium Level 4.5 3.5-5.1 mmol/L Chloride Level 112 H 101-111 mmol/L Carbon Dioxide Level 20 L 21-32 mmol/L Blood Urea Nitrogen 39 H 7-18 mg/dL Creatinine 1.3 0.5-1.3 mg/dL Glomerular Filtration Rate Calc 55 >90 mL/min Random Glucose 170 H 70-105 mg/dL Total Calcium 7.6 L 8.5-10.1 mg/dL Troponin I High Sensitivity 341 *H 4-75 ng/L Hemoglobin A1c 6.2 H 4.0-6.0 % Estimated Average Glucose (eAG) 131 H 70-126 mg/dL Magnesium Level 2.40 1.80-2.40 mg/dL Total Bilirubin 1.1 H 0.2-1.0 mg/dL Aspartate Amino Transf (AST/SGOT) 28 10-37 U/L Alanine Aminotransferase (ALT/SGPT) < 6 L 12-78 U/L Alkaline Phosphatase 44 L 50-136 U/L Total Protein 6.0 6.0-8.3 g/dL Albumin 2.6 L 3.5-5.0 g/dL Triglycerides Level 56 30-200 mg/dL Cholesterol Level 176 # <200 mg/dL LDL Cholesterol 72 0-99 mg/dL HDL Cholesterol 91 H 29-71 mg/dL Thyroid Stimulating Hormone (TSH) 0.73 0.36-3.74 uIU/mL B-Type Natriuretic Peptide 698 H 0-100 pg/mL Test 01/02/25 19:57 01/02/25 17:25 01/02/25 13:50 01/01/25 23:31 Range/Units Total Creatine Kinase 170 21-232 U/L Lactic Acid Level 2.7 H 0.8-2.5 mmol/L Whole Blood Ketones Quantitative 0.4 0.0-0.6 mmol/L Direct Bilirubin 0.1 0.0-0.3 mg/dL Lipase 96 H 16-77 U/L Coagulation Labs: Test 01/02/25 10:25 01/01/25 23:31 Range/Units Prothrombin Time 11.4 9.6-11.6 SEC Prothromb Time International Ratio 1.08 0.85-1.15 Activated Partial Thromboplast Time 30.2 26.3-35.5 SEC Fibrinogen 292 180-350 mg/dL D-Dimer Quantitative (PE/DVT) 5681 *H 0-500 ng/mL DIAGNOSTICS / RADIOLOGY RESULTS: [ ] Signed PATIENT: OMAR HELM MR#: [id number] : 1940 SEX: M AGE: 84 LOCATION: 2B ORDER 1606 STATUS: ADM IN REPORT#: [id number] SERVICE 1604 REASON: R/O ENDOCARDITIS ORDERING PHYSICIAN: DANYEL FERNANDES MD PROCEDURE: ECHO SMITA - ECHO SMITA--TRANSESOPHAGEAL APPROVED REPORT EXAM: Transesophageal echocardiogram with color flow Doppler. INDICATION ICD: Rule out endocarditis PROCEDURE After obtaining informed consent, patient underwent transesophageal echo in the 210 Type of Sedation: Please refer to medication administration record. Pt intubated. Sedation was administered by Please refer to medication administration record. . Sedation was achieved with Please refer to medication administration record. intravenously. Transesophageal probe was inserted and advanced into esophagus without difficulty by Danyel Fernandes MD . SMITA was performed and images were obtained, probe was removed without complications. Throughout the procedure, the blood pressure, pulse oximetry, cardiac rhythm, and rate were monitored. Left Ventricle The left ventricle is normal size. Mild concentric left ventricular hypertrophy. LVEF is 60-65%. No left ventricle thrombus noted on this study. Not assessed. Right Ventricle The right ventricle is normal size. The right ventricular systolic function is normal. Atria The left atrium is mildly dilated. Spontaneous contrast noted. The right atrium size is dilated. Aortic Valve Aortic valve is trileaflet, thickened and mildly calcified. Trace of aortic regurgitation is present. There is no aortic valvular vegetation. There is mild aortic valvular stenosis. Mitral Valve Mitral valve leaflets appear myxomatous and open well. There is trace of mitral valve regurgitation noted. No mitral valve vegetation. There is no mitral valve stenosis. Tricuspid Valve The tricuspid valve is normal in structure. There is trace to mild tricuspid valve regurgitation noted. No tricuspid valve vegetation. Pulmonic Valve Pulmonic valve is not well visualized. There is no pulmonic valvular regurgitation. Great Vessels The aortic root is normal in size. The IVC was not visualized. Pericardium There is no pericardial effusion. Conclusion Subvoptimial SMITA as probe overheated and procedure aborted. The left ventricle is normal size. LVEF is 60-65%. Mild concentric left ventricular hypertrophy. The right ventricular systolic function is normal. Both atria are normal in size. No hemodynamically significant valvular abnormalities or vegetations observed. No intracardiac thrombus observed. There is no pericardial effusion. DICTATED BY: DANYEL FERNANDES MD DATE: 01/03/25 1616 ELECTRONICALLY SIGNED BY: DANYEL FERNANDES MD DATE: 01/03/25 1719 PLAN Continue daily sedation vacation Continue daily spontaneous breathing trials Monitor daily chest x-ray Ventilator management per ABG NEURO: Minimize central acting medications as possible. Fall Precautions. PULMONARY: - Acute hypoxic respiratory failure requiring intubation on 01/01/25 - Bilateral Multifocal bacterial pneumonia, POA suspected micro aspiration - Suspected aspiration pneumonia, POA Supplemental 02 as needed Titrate Fio2 to keep Spo2 > or = 90% Atrovent nebs and CPT as needed IS hourly while awake for pulmonary hygiene once extubated Out of bed to chair as tolerated once extubated VAP Bundle Vent/BIPAP Settings assist control volume control tidal volume 500 respiratory rate of 20 FiO2 of 50% and PEEP of five. P Plat: Goal less than 30 CARDIOVASCULAR: -Suspected acute on chronic CHF, POA Cardiac monitoring Cardiac markers Follow hemodynamics. Titrate vasopressor to keep MAP >65 or systolic blood pressure >95mmHg Drips: Fentanyl off Versed off Phenylephrine If needed start Precedex p.r.n. agitation LINES: PIV PICC line to right upper extremity Consider arterial line if hypotension motor frequent ABGs are required GI & NUTRITION: Continue nutritional support Aspirations precautions Prokinetic agents and laxatives as needed Tube feedings Dietary consult KIDNEYS & ELECTROLYTES: Strict monitoring of intake and output Daily weights Avoid nephrotoxic agents Monitor electrolytes and replace as needed Goal urine output of 30mL/hr or 0.5mL/kg/hr ENDOCRINE: Type 2 diabetes mellitus with hyperglycemia Maintain blood glucose between 100-180 at all times. Insulin sliding scale for blood glucose management Add Lantus Hemoglobin A1c 6.2 TSH WNL INFECTIOUS DISEASE: Septic shock, POA requiring pressors Lactic acidosis, POA, resolved Trend temperature. Milligan-culture if febrile. Micro: Blood cultures negative Respiratory cultures Gram-positive and Gram-negative rods Influenza a and B negative Strep throat negative COVID-19 negative HIV negative Antibiotics: Cefepime Flagyl Doxycycline HEMATOLOGY & COAGULATION: -Elevated D-dimer negative for PE positive for DVT Right popliteal DVT, POA Monitor H&H. Keep Hgb > 7 Transfuse 1 unit of PRBC for Hgb < 7 Transfuse 1 pack of platelets of platelets < 20, 000 Watch for any signs and symptoms of bleeding Full-dose Lovenox for DVT SKIN: Pressure ulcer prevention per facility protocol Rehab: PT/OT Prophylaxis: GI: Protonix DVT: Lovenox Code Status: Full Resuscitation Disposition: ICU Other: Critical care time This patient required multiple bedside visits to manage the patient, review blood gases, coordinate with respiratory, nurses,review radiology exams, talk to the family members and discuss advanced directives. I personally spent 75] minutes of critical care time in treatment of this pa tient. This includes patient management, time at bedside, time reviewing tests, labs, appropriate images and studies, documentation, and patient care coordination. This time excludes separately billable procedures. ELLA DICKINSON [facility] Jan 03, 2025 11:24
[2025-01-03] MEDS: phenylEPHRINE HCL 100 MG in 0.9% NACL 250ML 250 ML IV SCH (12:00)
[2025-01-03] MEDS: acetaMINOPHEN 1,000 MG/100 ML VIAL IVPB ONE (12:03)
[2025-01-03] MEDS: miDODRine HCL 5 MG TABLET PO SCH (13:48)
--- NOTE | 2025-01-03 14:01 | CONS ---
[facility] CARDIOLOGY CONSULTATION NOTE Date Patient Seen: Jan 03, 2025 Time of Visit: 13:36 Reason for Consultation: [Elevated troponin ] History of Present Illness: [84-year-old male patient follows up in cardiology clinic with Dr. Viramontes (last seen in 2020) with a past medical history of Parkinson's disease, type 2 diabetes mellitus, hypertension, Wdwka-Iutuwhpta-Xejht syndrome, who presented to the emergency department endorsing shortness of breath x 3 days. Much of HPI was obtained by patient's as patient was currently intubated on sedation. Per patient was out gardening Wednesday evening with no apparent distress and following this began endorsing shortness of breath severe right-sided abdominal pain extending to his right arm. His symptoms were progressive and on arrival to [facility] he was noted to have increased work of breathing and was found to be in acute hypoxic respiratory failure, the patient was intubated transferred to the ICU where he was started on broad-spectrum IV antibiotics for suspected aspiration pneumonia. 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 Ultrasound venous Doppler of lower extremities showed right popliteal nonocclusive thrombus. Chest CT showed no evidence of pulmonary embolism but suggestive of bilateral pneumonia. 2D echocardiogram revealed mild LVH, EF 60-65%, mild aortic stenosis (velocity 2.3 M/S, mean [id number], small size, freely mobile, echodense mass seen of the anterior leaflet of mitral valve. Concerning for bacterial endocarditis. Given these findings Cardiology was consulted for suspected endocarditis ) ] Past Medical History: [Refer to chart ] Past Surgical History: [ Refer to HPI] Family History: [Refer to HPI] Social History: Refer to HPI Habits: [Never] smoker. [Denies] alcohol consumption. [Denies] illicit drug use Review of Systems: A review of the systems was negative set per HPI Physical Examination: GENERAL: [Intubated on mechanical ventilation] HEAD: [Normal with no signs of head trauma.] EYES: [PERRLA, EOMI, conjunctiva and sclera normal.] ENT: [Hearing grossly intact, normal oropharynx.] NECK: [Supple without JVD. There is no tenderness, lymphadenopathy, or masses. No thyromegaly. Normal carotid upstrokes without bruits.] LUNGS: [Decreased breath sounds bilaterally HEART: [Normal rate and rhythm. Normal S1 and S2 without mumurs, gallop or rub.] VASC: [Peripheral pulses +2 bilaterally.] ABD: [Bowel sounds normal, soft, nontender, no masses, no organomegaly. No audible bruits.] : [Not examined] LYMPH: [No lymphadenopathy noted.] EXT: [No clubbing, cyanosis or edema.] SKIN: [No rashes or lesions noted.] NEURO: [Awake, alert, and oriented x0. No focal sensory or strength deficits noted.] Vital Signs (last 8hr) Date Time Temp Pulse Resp B/P (MAP) Pulse Ox O2 Delivery O2 Flow Rate FiO2 01/03/25 13:00 96 13 109/60 (76) 96 01/03/25 12:45 94 13 107/61 (76) 96 60 01/03/25 12:30 99 11 106/59 (75) 96 60 01/03/25 12:15 116 16 94/68 (77) 96 60 01/03/25 12:05 98 60 01/03/25 12:00 98.4 01/03/25 12:00 95/56 01/03/25 12:00 101 14 88/48 (61) 94 60 01/03/25 11:45 108 13 110/39 (62) 94 60 01/03/25 11:30 98.4 97 14 88/42 (57) 93 01/03/25 11:15 127 13 109/59 (76) 94 01/03/25 11:00 124 14 126/61 (82) 95 01/03/25 10:59 133 14 116/67 (83) 94 01/03/25 10:45 122 23 100/53 (69) 93 01/03/25 10:30 129 20 96/55 (69) 94 01/03/25 10:15 130 18 114/47 (69) 95 01/03/25 10:00 130 17 116/62 (80) 94 01/03/25 09:45 132 16 111/65 (80) 95 01/03/25 09:41 110 60 01/03/25 09:30 116 20 112/59 (76) 95 01/03/25 09:15 133 21 115/49 (71) 95 4/23/25 09:00 123 20 113/40 (64) 94 01/03/25 08:45 148 20 129/58 (81) 95 01/03/25 08:30 115 20 144/64 (90) 95 01/03/25 08:15 128 20 131/65 (87) 94 01/03/25 08:00 98.8 01/03/25 08:00 98.8 121 20 92/53 (66) 92 01/03/25 07:45 116 21 103/45 (64) 94 01/03/25 07:30 129 20 102/56 (71) 93 01/03/25 07:15 130 20 97/60 (72) 93 01/03/25 07:15 115 20 01/03/25 07:02 120 60 01/03/25 07:01 120 20 01/03/25 07:00 132 20 135/61 (85) 95 60 01/03/25 06:45 123 20 113/58 (76) 94 60 01/03/25 06:30 124 20 119/57 (77) 94 60 01/03/25 06:15 135 20 120/57 (78) 100 60 01/03/25 06:00 93 20 107/55 (72) 99 60 01/03/25 05:45 92 21 129/75 (93) 99 60 Laboratory: [ ] Hematology Labs: Test 01/03/25 07:52 01/03/25 02:34 01/02/25 05:51 Range/Units White Blood Count 7.6 4.8-10.8 K/uL Red Blood Count 4.25 L 4.50-6.20 MIL/uL Hemoglobin 13.7 L 14.0-18.0 g/dL Hematocrit 42.0 42-54 % Mean Corpuscular Volume 98.8 79-99 fL Mean Corpuscular Hemoglobin 32.2 27.0-33.0 pg Mean Corpuscular Hemoglobin Concent 32.6 32.0-36.0 g/dL Red Cell Distribution Width 13.9 11.0-15.5 % Platelet Count 122 L 130-400 K/uL Mean Platelet Volume 10.9 H 7.5-10.5 fL Nucleated Red Blood Cells 0.0 0.0-0.19 % Immature Granulocyte % (Auto) 0.5 0-1 % Neutrophils (%) (Auto) 88.1 H 40.0-77.0 % Lymphocytes (%) (Auto) 3.3 L 21.0-51.0 % Monocytes (%) (Auto) 6.0 3.0-13.0 % Eosinophils (%) (Auto) 1.4 0.0-8.0 % Basophils (%) (Auto) 0.7 0.0-5.0 % Neutrophils # (Auto) 6.4 1.8-7.7 K/uL Lymphocytes # (Auto) 0.2 L 1.0-4.8 K/uL Monocytes # (Auto) 0.4 0.1-1.0 K/uL Eosinophils # (Auto) 0.10 0.00-0.70 K/uL Basophils # (Auto) 0.05 0.00-0.20 K/uL Absolute Immature Granulocyte (auto 0.04 0-1 K/uL White Cell Morphology Comment See comments Chemistry Labs: Test 01/03/25 11:27 01/03/25 07:52 01/03/25 02:34 01/02/25 21:15 Range/Units Whole Blood Glucose 186 H 70-110 MG/DL Sodium Level 146 H 136-145 mmol/L Potassium Level 4.5 3.5-5.1 mmol/L Chloride Level 112 H 101-111 mmol/L Carbon Dioxide Level 20 L 21-32 mmol/L Blood Urea Nitrogen 39 H 7-18 mg/dL Creatinine 1.3 0.5-1.3 mg/dL Glomerular Filtration Rate Calc 55 >90 mL/min Random Glucose 170 H 70-105 mg/dL Total Calcium 7.6 L 8.5-10.1 mg/dL Troponin I High Sensitivity 341 *H 4-75 ng/L Hemoglobin A1c 6.2 H 4.0-6.0 % Estimated Average Glucose (eAG) 131 H 70-126 mg/dL Magnesium Level 2.40 1.80-2.40 mg/dL Total Bilirubin 1.1 H 0.2-1.0 mg/dL Aspartate Amino Transf (AST/SGOT) 28 10-37 U/L Alanine Aminotransferase (ALT/SGPT) < 6 L 12-78 U/L Alkaline Phosphatase 44 L 50-136 U/L Total Protein 6.0 6.0-8.3 g/dL Albumin 2.6 L 3.5-5.0 g/dL Triglycerides Level 56 30-200 mg/dL Cholesterol Level 176 # <200 mg/dL LDL Cholesterol 72 0-99 mg/dL HDL Cholesterol 91 H 29-71 mg/dL Thyroid Stimulating Hormone (TSH) 0.73 0.36-3.74 uIU/mL B-Type Natriuretic Peptide 698 H 0-100 pg/mL Test 01/02/25 19:57 01/02/25 17:25 01/02/25 13:50 01/01/25 23:31 Range/Units Total Creatine Kinase 170 21-232 U/L Lactic Acid Level 2.7 H 0.8-2.5 mmol/L Whole Blood Ketones Quantitative 0.4 0.0-0.6 mmol/L Direct Bilirubin 0.1 0.0-0.3 mg/dL Lipase 96 H 16-77 U/L Coagulation Labs: Test 01/02/25 10:25 01/01/25 23:31 Range/Units Prothrombin Time 11.4 9.6-11.6 SEC Prothromb Time International Ratio 1.08 0.85-1.15 Activated Partial Thromboplast Time 30.2 26.3-35.5 SEC Fibrinogen 292 180-350 mg/dL D-Dimer Quantitative (PE/DVT) 5681 *H 0-500 ng/mL Diagnostics / Radiology: [Copy/Paste Echos/Imaging Report here] Assessment: [Acute hypoxic respiratory failure requiring intubation on 01/01/25 Bilateral Multifocal bacterial pneumonia Suspected aspiration pneumonia Septic shock Right popliteal DVT Parkinson's disease Victorino Parkinson's White syndrome Hyperglycemia in the presence of type 2 diabetes mellitus Suspected mitral bacterial endocarditis Plan: [# suspected mitral bacterial endocarditis, (ruled out) Patient presented with hypoxic respiratory failure, likely secondary to bilateral pneumonia Patient was intubated and transferred to ICU. 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 Monitor/police electrolytes as needed There is No need for any further CV testing at this time. Thank you for this consult cardiology will sign off at this time. Patient will need close outpatient cardiology follow up within 1-2 weeks of discharge Issa Fernandes MD ] ATTESTATION BY PHYSICIAN I have seen and examined the patient, reviewed the above documentation, participated in medical decision making, made necessary modifications, and agree with the treatment plan as documented by my mid-level provider above. Issa Fernandes MD ATTESTATION BY PHYSICIAN I have seen and examined the patient, reviewed the above documentation, participated in medical decision making, made necessary modifications, and agree with the treatment plan as documented by my mid-level provider above. MD DEBBIE Durán JAMES R MD Jan 03, 2025 14:00
[2025-01-03 14:07] LABS: ABG HCO3 22.4 mmol/L (21.0-28.0); ABG OXYGEN SATURATION 97.8 % (94.0-98.0); ABG PCO2 46 mmHg (35-48); CARBON MONOXIDE 0.7 % (0.5-1.5); CPAP, BG 5 cm H2O; DEVICE COMMENT RR; HHb 2.2; PO2, ARTERIAL BG 111.6 mmHg (83.0-108.0); VENT MODE, BG CPAP PS 10 5 (ROOM AIR)
--- NOTE | 2025-01-03 15:17 | PN ---
INFECTIOUS DISEASE PROGRESS NOTE Date of Service: Jan 03, 2025 SUBJECTIVE: This is an 84-year-old male patient who was seen and examined at bedside in the ICU room 210. Patient remains intubated and on vasopressor support. Patient is afebrile, temperature is 98.8 and the WBC has trended down to 7.6. Preliminary sputum culture results growing Gram-negative rods. The 2D echo done yesterday showed a small sized, freely mobile, echodense mass seen on the anterior leaflet of the mitral valve and cannot exclude aortic valve vegetation. We will obtain consult with bench technician for possible SMITA. We will start patient on vancomycin per pharmacy protocol and continue cefepime, doxycycline and metronidazole as currently ordered. We will continue to follow patient's care. PHYSICAL EXAM EYES: Anicteric. Pupils equal and reactive. HENT: No oral thrush seen, moist Oral mucosa NECK: Supple, no JVD or thyromegaly. LUNGS: Good air entry. Mechanical ventilation. CARDIOVASCULAR: S1, S2 regular. No murmur heard. ABDOMEN: Soft, non tender, bowel sounds present, no organomegaly CENTRAL NERVOUS SYSTEM: Intubated. SKIN: No rashes, no swelling. LYMPHATICS: No peripheral lymphadenopathy. MUSCULOSKELETAL: No joint swelling, erythema or tenderness. EXTREMITIES: No cyanosis or clubbing. BACK: No deformity, no pressure ulcer. GENITOURINARY: No dysuria or hematuria. Granger catheter. Vital Sign (Last 12 Hours) 01/03/25 01/03/25 01/03/25 01/03/25 03:15 03:30 03:45 04:00 Pulse 92 93 88 Resp 20 20 20 B/P (MAP) 115/60 (78) 111/59 (76) 108/63 (78) Pulse Ox 98 98 98 FiO2 60 60 60 60 01/03/25 01/03/25 01/03/25 01/03/25 04:00 04:00 04:00 04:06 Temp 98.2 98.2 Pulse 88 89 Resp 20 B/P (MAP) 120/64 (82) Pulse Ox 98 98 O2 Delivery Ventilator+ FiO2 60 40 60 01/03/25 01/03/25 01/03/25 01/03/25 04:15 04:30 04:45 05:00 Pulse 90 95 96 94 Resp 21 20 20 20 B/P (MAP) 96/54 (68) 114/50 (71) 125/50 (75) 129/51 (77) Pulse Ox 97 98 98 98 FiO2 60 60 60 60 01/03/25 01/03/25 01/03/25 01/03/25 05:15 05:30 05:45 06:00 Pulse 96 93 92 93 Resp 20 20 21 20 B/P (MAP) 120/61 (80) 117/58 (77) 129/75 (93) 107/55 (72) Pulse Ox 98 98 99 99 FiO2 60 60 60 60 01/03/25 01/03/25 01/03/25 01/03/25 06:15 06:30 06:45 07:00 Pulse 135 124 123 132 Resp 20 20 20 20 B/P (MAP) 120/57 (78) 119/57 (77) 113/58 (76) 135/61 (85) Pulse Ox 100 94 94 95 FiO2 60 60 60 60 01/03/25 01/03/25 01/03/25 01/03/25 07:01 07:02 07:15 07:15 Pulse 120 120 115 130 Resp 20 20 20 B/P (MAP) 97/60 (72) Pulse Ox 93 FiO2 60 01/03/25 01/03/25 01/03/25 01/03/25 07:30 07:45 08:00 08:00 Temp 98.8 Pulse 129 116 121 Resp 20 21 20 B/P (MAP) 102/56 (71) 103/45 (64) 92/53 (66) Pulse Ox 93 94 92 FiO2 60 01/03/25 01/03/25 01/03/25 01/03/25 08:00 08:15 08:30 08:45 Temp 98.8 Pulse 128 115 148 Resp 20 20 20 B/P (MAP) 131/65 (87) 144/64 (90) 129/58 (81) Pulse Ox 94 95 95 01/03/25 01/03/25 01/03/25 01/03/25 09:00 09:15 09:30 09:41 Pulse 123 133 116 110 Resp 20 21 20 B/P (MAP) 113/40 (64) 115/49 (71) 112/59 (76) Pulse Ox 94 95 95 FiO2 60 01/03/25 01/03/25 01/03/25 01/03/25 09:45 10:00 10:15 10:30 Pulse 132 130 130 129 Resp 16 17 18 20 B/P (MAP) 111/65 (80) 116/62 (80) 114/47 (69) 96/55 (69) Pulse Ox 95 94 95 94 01/03/25 01/03/25 01/03/25 01/03/25 10:45 10:59 11:00 11:15 Pulse 122 133 124 127 Resp 23 14 14 13 B/P (MAP) 100/53 (69) 116/67 (83) 126/61 (82) 109/59 (76) Pulse Ox 93 94 95 94 01/03/25 01/03/25 01/03/25 01/03/25 11:30 11:45 12:00 12:00 Temp 98.4 Pulse 97 108 101 Resp 14 13 14 B/P (MAP) 88/42 (57) 110/39 (62) 88/48 (61) Pulse Ox 93 94 94 FiO2 60 60 60 01/03/25 01/03/25 01/03/25 01/03/25 12:00 12:00 12:05 12:15 Temp 98.4 Pulse 98 116 Resp 16 B/P (MAP) 95/56 94/68 (77) Pulse Ox 96 FiO2 60 60 01/03/25 01/03/25 01/03/25 01/03/25 12:30 12:45 13:00 14:41 Pulse 99 94 96 100 Resp 11 13 13 20 B/P (MAP) 106/59 (75) 107/61 (76) 109/60 (76) Pulse Ox 96 96 96 FiO2 60 60 Intake & Output (last 24hrs) 01/02/25 01/02/25 01/03/25 15:00 23:00 07:00 Intake Total 773.3 ml 1468.9 ml 1035.7 ml Output Total 730 ml 2860 ml Balance 773.3 ml 738.9 ml -1824.3 ml LABS: Laboratory: Test 01/03/25 14:05 01/03/25 11:27 01/03/25 11:00 01/03/25 07:52 Range/Units Blood Gas Specimen Type Arterial Arterial Blood pH 7.310 L 7.350-7.450 Arterial Blood Partial Pressure CO2 46 35-48 mmHg Arterial Blood Partial Pressure O2 111.6 H 83.0-108.0 mmHg Arterial Blood HCO3 22.4 21.0-28.0 mmol/L Arterial Blood Oxygen Saturation 97.8 94.0-98.0 % Arterial Blood Base Excess -4.0 L -2.0-3.0 mmol/L Hemoglobin (Blood Gas) 15.7 13.5-17.5 g/dL Sodium (Blood Gas) 148 H 136-145 MMOL/L Bedside Potassium (Blood Gas) 4.8 H 3.4-4.5 MMOL/L Bedside Chloride (Blood Gas) 110 H 98-107 MMOL/L Bedside Glucose (Blood Gas) 239 H 65-95 MG/DL Bedside Ionized Calcium (Blood Gas) 1.20 1.15-1.33 MMOL/L Bedside Lactic Acid (Blood Gas) 2.66 H 0.36-0.75 MMOL/L Blood Gas Temperature 37.0 35.5-37.0 CELSIUS Blood Gas Vent Mode CPAP PS 10 5 ROOM AIR FiO2 60.0 % Blood Gas CPAP 5 cm H2O Blood Gas Specimen Comment RR Whole Blood Glucose 186 H 70-110 MG/DL Blood Gas Respiration Rate 20.0 min. Blood Gas Tidal Volume 500 ml Blood Gas PEEP 5 cm H2O White Blood Count 7.6 4.8-10.8 K/uL Red Blood Count 4.25 L 4.50-6.20 MIL/uL Hemoglobin 13.7 L 14.0-18.0 g/dL Hematocrit 42.0 42-54 % Mean Corpuscular Volume 98.8 79-99 fL Mean Corpuscular Hemoglobin 32.2 27.0-33.0 pg Mean Corpuscular Hemoglobin Concent 32.6 32.0-36.0 g/dL Red Cell Distribution Width 13.9 11.0-15.5 % Platelet Count 122 L 130-400 K/uL Mean Platelet Volume 10.9 H 7.5-10.5 fL Nucleated Red Blood Cells 0.0 0.0-0.19 % Sodium Level 146 H 136-145 mmol/L Potassium Level 4.5 3.5-5.1 mmol/L Chloride Level 112 H 101-111 mmol/L Carbon Dioxide Level 20 L 21-32 mmol/L Blood Urea Nitrogen 39 H 7-18 mg/dL Creatinine 1.3 0.5-1.3 mg/dL Glomerular Filtration Rate Calc 55 >90 mL/min Random Glucose 170 H 70-105 mg/dL Total Calcium 7.6 L 8.5-10.1 mg/dL Troponin I High Sensitivity 341 *H 4-75 ng/L Test 01/03/25 02:34 01/02/25 21:15 01/02/25 19:57 01/02/25 17:25 Range/Units Immature Granulocyte % (Auto) 0.5 0-1 % Neutrophils (%) (Auto) 88.1 H 40.0-77.0 % Lymphocytes (%) (Auto) 3.3 L 21.0-51.0 % Monocytes (%) (Auto) 6.0 3.0-13.0 % Eosinophils (%) (Auto) 1.4 0.0-8.0 % Basophils (%) (Auto) 0.7 0.0-5.0 % Neutrophils # (Auto) 6.4 1.8-7.7 K/uL Lymphocytes # (Auto) 0.2 L 1.0-4.8 K/uL Monocytes # (Auto) 0.4 0.1-1.0 K/uL Eosinophils # (Auto) 0.10 0.00-0.70 K/uL Basophils # (Auto) 0.05 0.00-0.20 K/uL Absolute Immature Granulocyte (auto 0.04 0-1 K/uL Hemoglobin A1c 6.2 H 4.0-6.0 % Estimated Average Glucose (eAG) 131 H 70-126 mg/dL Magnesium Level 2.40 1.80-2.40 mg/dL Total Bilirubin 1.1 H 0.2-1.0 mg/dL Aspartate Amino Transf (AST/SGOT) 28 10-37 U/L Alanine Aminotransferase (ALT/SGPT) < 6 L 12-78 U/L Alkaline Phosphatase 44 L 50-136 U/L Total Protein 6.0 6.0-8.3 g/dL Albumin 2.6 L 3.5-5.0 g/dL Triglycerides Level 56 30-200 mg/dL Cholesterol Level 176 # <200 mg/dL LDL Cholesterol 72 0-99 mg/dL HDL Cholesterol 91 H 29-71 mg/dL Thyroid Stimulating Hormone (TSH) 0.73 0.36-3.74 uIU/mL B-Type Natriuretic Peptide 698 H 0-100 pg/mL Total Creatine Kinase 170 21-232 U/L Lactic Acid Level 2.7 H 0.8-2.5 mmol/L Test 01/02/25 13:50 01/02/25 10:25 01/02/25 05:51 01/02/25 02:01 Range/Units Whole Blood Ketones Quantitative 0.4 0.0-0.6 mmol/L Prothrombin Time 11.4 9.6-11.6 SEC Prothromb Time International Ratio 1.08 0.85-1.15 Activated Partial Thromboplast Time 30.2 26.3-35.5 SEC Fibrinogen 292 180-350 mg/dL HIV (1&2) Antibody Non-Reactive Negative HIV P24 Antigen, Qualitative Non-Reactive Negative White Cell Morphology Comment See comments Urine Color LIGHT-YELLOW YELLOW Urine Appearance CLEAR CLEAR Urine pH 5.0 5.0-8.0 Urine Specific [place] 1.032 H 1.001-1.031 Urine Protein NEGATIVE NEGATIVE mg/dL Urine Glucose (UA) >=1000 H NEGATIVE mg/dL Urine Ketones 20 H NEGATIVE mg/dL Urine Occult Blood NEGATIVE NEGATIVE Urine Nitrate NEGATIVE NEGATIVE Urine Bilirubin NEGATIVE NEGATIVE mg/dL Urine Urobilinogen 0.2 0.2-1.0 mg/dL Urine Leukocyte Esterase NEGATIVE NEGATIVE Eugenie/uL Urine RBC 0-1 0-1 /HPF Urine WBC 0-1 0-1 /HPF Urine Bacteria RARE None Seen /HPF Urine Opiates Screen NEGATIVE NEGATIVE Urine Barbiturates Screen NEGATIVE NEGATIVE Urine Phencyclidine Screen NEGATIVE NEGATIVE Urine Amphetamines Screen NEGATIVE NEGATIVE Urine Benzodiazepines Screen NEGATIVE NEGATIVE Urine Cocaine Screen NEGATIVE NEGATIVE Urine Marijuana (THC) Screen NEGATIVE NEGATIVE Test 01/02/25 00:58 01/02/25 00:46 01/01/25 23:31 Range/Units Blood Gas Flow-by 7.00 0.00-15.00 L/min Influenza Type A Antigen Negative For Type A NEGATIVE Influenza Type B Antigen Negative For Type B NEGATIVE SARS-CoV-2, RNA, NAAT NEGATIVE SARS CoV-2 NEGATIVE Group A Streptococcus Rapid negative NEGATIVE D-Dimer Quantitative (PE/DVT) 5681 *H 0-500 ng/mL Direct Bilirubin 0.1 0.0-0.3 mg/dL Lipase 96 H 16-77 U/L DIAGNOSTICS / RADIOLOGY: PATIENT: OMAR HELM ACCT: [id number] LOC: [facility] U: [id number] AGE/SX: 84/M ROOM: 210 RE01/02/[address]: VIKAS WILD MD : 1940 BED: 1 DIS: STATUS: ADM IN TLOC: SPEC: [id number] MARYCARMEN: 01/02/25 STATUS: RES REQ: [id number] RECD: 01/02/[address]: BAO WILBURN MD SOURCE: SPUTUM ENTR: 01/02/[address] [facility] [address]: RADHA MCCLAIN MD SPDESC: EXPECTO ORDERED: RESP CULTURE COMMENTS: Has specimen been collected/obtained? Y Procedure Result Teressa Date-Time GRAM STAIN Final 01/02/25-1119 [facility] GRAM STAIN RESULT: MODERATELY FAIR SPECIMEN [ >10SEC's/LPF AND >25 PMN's/LPF ] 1+ GRAM POSITIVE COCCI IN CHAINS AND CLUSTERS 1+ GRAM POSITIVE RODS RESPIRATORY CULTURE Preliminary 01/03/25-805 [facility] COLONY DESCRIPTION: REPORT 1: 3+ ORAL DEUCE ; STUDIES TO CONTINUE 1+ GRAM NEGATIVE RODS IDENTIFICATION AND SENSITIVITY TO FOLLOW Test(s) performed by: [facility] [address] [place] [address] ASSESSMENT: Hypoxic respiratory failure requiring intubation. Multifocal pneumonia. Sepsis Possible endocarditis. Right lower extremity DVT. Diabetes mellitus. PLAN: Continue critical care support. Start vancomycin per pharmacy protocol. Continue cefepime. Continue doxycycline. Continue metronidazole. Continue IV steroids. Continue GI prophylaxis. Continue Lovenox. Consult Cardiology for possible SMITA. This case was reviewed and discussed with my supervising physician and the above assessment and plan was formulated and agreed upon. ATTESTATION BY PHYSICIAN I have seen and examined the patient. I reviewed the documentation, medical decision making, and treatment plan as noted by the mid-level provider above. I agree with the findings and plan of care. VIKAS WILD MD, MIRTA L [facility] Jan 03, 2025 15:16
[2025-01-03] MEDS ORDERED: VANCOMYCIN PROTOCOL PER PHARMACY IV SCH (15:30)
[2025-01-03] MEDS ORDERED: FENTanyl CITRate PF 50 MCG/1 ML 2ML VIAL IVP PRN (16:00)
--- NOTE | 2025-01-03 16:41 | NUR ---
CT ON HOLD, PT IN ROOM PROCEDURE WITH TELEPRINTER INSTALLER. HARDEEP MAE WILL CALL BACK WHEN READY.
--- NOTE | 2025-01-03 17:19 | HMCSR ---
APPROVED REPORT EXAM: Transesophageal echocardiogram with color flow Doppler. INDICATION ICD: Rule out endocarditis PROCEDURE After obtaining informed consent, patient underwent transesophageal echo in the 210 Type of Sedation: Please refer to medication administration record. Pt intubated. Sedation was administered by Please refer to medication administration record. . Sedation was achieved with Please refer to medication administration record. intravenously. Transesophageal probe was inserted and advanced into esophagus without difficulty by Issa Fernandes MD . SMITA was performed and images were obtained, probe was removed without complications. Throughout the procedure, the blood pressure, pulse oximetry, cardiac rhythm, and rate were monitored . Left Ventricle The left ventricle is normal size. Mild concentric left ventricular hypertrophy. LVEF is 60-65%. No l eft ventricle thrombus noted on this study. Not assessed. Right Ventricle The right ventricle is normal size. The right ventricular systolic function is normal. Atria The left atrium is mildly dilated. Spontaneous contrast noted. The right atrium size is dilated. Aortic Valve Aortic valve is trileaflet, thickened and mildly calcified. Trace of aortic regurgitation is present. There is no aortic valvular vegetation. There is mild aortic valvular stenosis. Mitral Valve Mitral valve leaflets appear myxomatous and open well. There is trace of mitral valve regurgitation n oted. No mitral valve vegetation. There is no mitral valve stenosis. Tricuspid Valve The tricuspid valve is normal in structure. There is trace to mild tricuspid valve regurgitation note d. No tricuspid valve vegetation. Pulmonic Valve Pulmonic valve is not well visualized. There is no pulmonic valvular regurgitation. Great Vessels The aortic root is normal in size. The IVC was not visualized. Pericardium There is no pericardial effusion. Conclusion Subvoptimial SMITA as probe overheated and procedure aborted. The left ventricle is normal size. LVEF is 60-65%. Mild concentric left ventricular hypertrophy. The right ventricular systolic function is normal. Both atria are normal in size. No hemodynamically significant valvular abnormalities or vegetations observed. No intracardiac thrombus observed. There is no pericardial effusion.
[2025-01-03] MEDS: VANCOMYCIN 1.75 GM/250 ML BAG 250 ML IV ONE (18:03)
--- NOTE | 2025-01-03 18:03 | HMCIMG ---
Exam Type: CT HEAD/BRAIN W/O CONTRAST Clinical Information: ams Comparison: None CT Dose Index (CTDI): 57.33 mGy Dose Length Product (DLP): 956.79 total mGy-cm Findings: The examination shows atrophy. There is low attenuation throughout the periventricular white matter locations, consistent with chronic small vessel ischemic changes. No acute intra- or extra-axial fluid collections are seen. There is no evidence of acute or chronic hemorrhage. There is no mass effect or shift of midline structures. There are no areas to suggest acute infarct. The skull windows show no significant abnormalities. IMPRESSION: 1. ATROPHY AND CHRONIC SMALL VESSEL ISCHEMIC CHANGES. This study was performed using dose reduction techniques to include automated exposure control and/or adjustment of the mA and/or kV according to patient size.
[2025-01-04] VITALS (97 sets, daily range): BP systolic 80–171; BP diastolic 39–96; PULSE 68–125; RESP 11–33; TEMP 97.8–98.6; O2SAT 94–98
[2025-01-04] MEDS: INSULIN humuLIN R 100 UNIT/ML 3ML SQ SCH
[2025-01-04 04:22] LABS: BASOPHILS # (AUTO) 0.01 K/uL (0.00-0.20); BASOPHILS % (AUTO) 0.1 % (0.0-5.0); EOSINOPHILS # (AUTO) 0.16 K/uL (0.00-0.70); EOSINOPHILS % (AUTO) 1.3 % (0.0-8.0); HEMATOCRIT 45.5 % (42-54); IMMATURE GRANULOCYTE ABSOLUTE 0.12 K/uL (0-1); LYMPHOCYTES # (AUTO) 0.2 K/uL (1.0-4.8); LYMPHOCYTES % (AUTO) 1.7 % (21.0-51.0); MEAN CORPUSCULAR HEMOGLOBIN 31.9 pg (27.0-33.0); MEAN CORPUSCULAR VOLUME 96.8 fL (79-99); MONOCYTES # (AUTO) 0.6 K/uL (0.1-1.0); MONOCYTES % (AUTO) 4.4 % (3.0-13.0); NEUTROPHILS # (AUTO) 11.5 K/uL (1.8-7.7); NEUTROPHILS % (AUTO) 91.5 % (40.0-77.0); PLATELET COUNT (AUTO) 161 K/uL (130-400); WHITE BLOOD COUNT (AUTO) 12.6 K/uL (4.8-10.8)
[2025-01-04 04:42] LABS: ALBUMIN 2.4 g/dL (3.5-5.0); ASPARTATE AMINOTRANSFERASE 20 U/L (10-37); BILIRUBIN,TOTAL 0.8 mg/dL (0.2-1.0); CARBON DIOXIDE 25 mmol/L (21-32); CHLORIDE 111 mmol/L (101-111); CREATININE 1.6 mg/dL (0.5-1.3); GLOMERULAR FILTR. RATE CALC 43 mL/min (>90); GLUCOSE,RANDOM 206 mg/dL (70-105); POTASSIUM 4.7 mmol/L (3.5-5.1); SODIUM SERUM 146 mmol/L (136-145); TOTAL PROTEIN, SERUM 6.3 g/dL (6.0-8.3); UREA NITROGEN, BLOOD 53 mg/dL (7-18)
[2025-01-04 04:43] LABS: ALANINE AMINOTRANSFERASE < 6 U/L (12-78)
--- NOTE | 2025-01-04 11:01 | HMCIMG ---
CHEST 1VW HISTORY: ET tube position COMPARISON: None FINDINGS: A frontal projection of the chest was obtained. Mild bilateral pulmonary infiltrates are seen may be related to mild pulmonary vascular congestion with possible superimposed pneumonitis. There is 10% right pneumothorax. Endotracheal tube is seen with distal tip at 4.9 cm above alysha. The heart is borderline enlarged. All the lines and tubes are again seen in place. No evidence of aortic calcification is seen. IMPRESSION: 1. Mild bilateral pulmonary infiltrates are seen may be related to mild pulmonary vascular congestion with possible superimposed pneumonitis. There is 10% right pneumothorax. Endotracheal tube is seen with distal tip at 4.9 cm above alysha. Report was given to the critical care team.
--- NOTE | 2025-01-04 11:58 | PN ---
[facility] PROGRESS NOTE Date Patient Seen: Jan 04, 2025 Time of Visit: 11:58 Supervising Physician: Enrico Maya MD Primary Care Physician: Cielo Bledsoe MD Outpatient Specialists: none Inpatient Consults: Critical care BIS, PROBLEM LIST: Acute hypoxic respiratory failure requiring intubation on 01/01/25, extubated 01/04/25 Bilateral Multifocal bacterial pneumonia, +(Klebsiella Aerogenes and Klebsiella Oxytoca POA suspected micro aspiration Suspected aspiration pneumonia, POA Acute on chronic HFpEF 60-65% POA Septic shock, POA requiring pressors suspected mitral bacterial endocarditis, (ruled out) Lactic acidosis, POA Elevated D-dimer negative for PE positive for superficial popliteal thrombus Acute non-anion gap metabolic acidosis, POA Right popliteal Thrombus POA Cardiomegaly Parkinson's disease Victorino Parkinson's White syndrome Hyperglycemia in the presence of type 2 diabetes mellitus Pancreatitis, POA Hypomagnesemia INTERVAL HISTORY: Pt tolerated CPAP today 5/5. He is awake alert and follows commands. He was successfully extubated and has opted for no reintubation and DNR. He is off pressors and hemodynamically stable on low dose precedex due to increased agitation. Urine output 2.8 L in last 24 hours and chest tube remains to continuous suction today. He had 170ml of output from chest tube in last 24 hours. Chest XR shows still a 10% right pneumothorax. RUE venous doppler ordered due to swelling to extreity and resulted negative for DVT. He is pending a speech eval post extubation for now we will keep npo. There is a slight increase in wbc to 12.6 but no fevers. Weaning down steroids. Discontinues lasix due to lilo of cr 1.6. Vancomycin discontinued , deescalated ABX to zosyn only. We nura keep pt in ICU overnight. We will avoid psychoactive medications and added a 1:1 sittr this PM due to multiple attempts to get out of bed. PT to eval and treat. REVIEW OF SYSTEMS: Unable to perform due to patient's intubated and sedated. PHYSICAL EXAM: GENERAL: Patient awake alert and oriented to name. follows commands but confused GCS of 14 HEENT: Sclerae nonicteric, moist mucosa. NECK: Supple, no JVD, trachea midline LUNGS: Clear breath sounds bilaterally. No wheezes HEART: Regular rate and rhythm. Normal S1 and S2, without murmurs ABD: Abdomen soft nontender, normal bowel sounds. EXT: +1 pitting edema to right lower extremity NEURO: Awake follows commands and no focal defecits, Hx of Parkinson. Vital Signs (last 8hr) Date Time Temp Pulse Resp B/P (MAP) Pulse Ox O2 Delivery O2 Flow Rate FiO2 01/04/25 10:15 84 16 120/74 (89) 94 01/04/25 10:00 82 18 125/68 (87) 95 01/04/25 09:52 81 40 01/04/25 09:45 85 19 114/70 (85) 95 01/04/25 09:30 72 16 109/67 (81) 96 01/04/25 09:15 77 18 117/53 (74) 96 01/04/25 09:00 78 17 117/70 (86) 96 01/04/25 08:45 74 15 97/59 (72) 95 01/04/25 08:30 74 14 107/68 (81) 96 01/04/25 08:15 70 15 102/59 (73) 96 01/04/25 08:00 97.9 01/04/25 08:00 77 15 102/66 (78) 95 01/04/25 08:00 94 CPAP+ 50 01/04/25 07:54 71 50 01/04/25 07:45 97.9 74 16 97/55 (69) 94 01/04/25 07:30 79 23 114/72 (86) 96 01/04/25 07:28 74 22 116/79 (91) 96 01/04/25 07:15 71 29 137/86 (103) 97 01/04/25 07:00 86 22 133/67 (89) 97 01/04/25 06:46 71 20 01/04/25 06:44 79 50 01/04/25 06:44 80 22 138/86 (103) 97 01/04/25 06:29 75 22 131/84 (100) 97 01/04/25 06:14 78 22 133/87 (102) 97 01/04/25 06:00 79 22 138/88 (105) 97 01/04/25 05:44 86 20 132/85 (101) 98 01/04/25 05:29 80 22 132/93 (106) 97 01/04/25 05:14 83 22 128/77 (94) 97 01/04/25 05:00 88 22 130/84 (99) 97 01/04/25 04:45 80 22 138/96 (110) 98 01/04/25 04:29 87 22 148/89 (108) 98 01/04/25 04:14 78 22 136/96 (109) 97 01/04/25 04:00 97 Ventilator+ 50 01/04/25 04:00 98.6 82 22 135/81 (99) 97 LABS: Hematology Labs: Test 01/04/25 03:57 Range/Units White Blood Count 12.6 #H 4.8-10.8 K/uL Red Blood Count 4.70 4.50-6.20 MIL/uL Hemoglobin 15.0 14.0-18.0 g/dL Hematocrit 45.5 42-54 % Mean Corpuscular Volume 96.8 79-99 fL Mean Corpuscular Hemoglobin 31.9 27.0-33.0 pg Mean Corpuscular Hemoglobin Concent 33.0 32.0-36.0 g/dL Red Cell Distribution Width 14.0 11.0-15.5 % Platelet Count 161 # 130-400 K/uL Mean Platelet Volume 11.1 H 7.5-10.5 fL Immature Granulocyte % (Auto) 1.0 0-1 % Neutrophils (%) (Auto) 91.5 H 40.0-77.0 % Lymphocytes (%) (Auto) 1.7 L 21.0-51.0 % Monocytes (%) (Auto) 4.4 3.0-13.0 % Eosinophils (%) (Auto) 1.3 0.0-8.0 % Basophils (%) (Auto) 0.1 0.0-5.0 % Neutrophils # (Auto) 11.5 H 1.8-7.7 K/uL Lymphocytes # (Auto) 0.2 L 1.0-4.8 K/uL Monocytes # (Auto) 0.6 0.1-1.0 K/uL Eosinophils # (Auto) 0.16 0.00-0.70 K/uL Basophils # (Auto) 0.01 0.00-0.20 K/uL Absolute Immature Granulocyte (auto 0.12 0-1 K/uL Nucleated Red Blood Cells 0.0 0.0-0.19 % Chemistry Labs: Test 01/04/25 03:58 01/04/25 03:57 01/03/25 07:52 01/03/25 02:34 Range/Units Whole Blood Glucose 183 H 70-110 MG/DL Sodium Level 146 H 136-145 mmol/L Potassium Level 4.7 3.5-5.1 mmol/L Chloride Level 111 101-111 mmol/L Carbon Dioxide Level 25 21-32 mmol/L Blood Urea Nitrogen 53 H 7-18 mg/dL Creatinine 1.6 H 0.5-1.3 mg/dL Glomerular Filtration Rate Calc 43 >90 mL/min Random Glucose 206 H 70-105 mg/dL Total Calcium 8.6 8.5-10.1 mg/dL Magnesium Level 2.80 H 1.80-2.40 mg/dL Total Bilirubin 0.8 0.2-1.0 mg/dL Aspartate Amino Transf (AST/SGOT) 20 10-37 U/L Alanine Aminotransferase (ALT/SGPT) < 6 L 12-78 U/L Alkaline Phosphatase 48 L 50-136 U/L Total Protein 6.3 6.0-8.3 g/dL Albumin 2.4 L 3.5-5.0 g/dL Troponin I High Sensitivity 341 *H 4-75 ng/L Hemoglobin A1c 6.2 H 4.0-6.0 % Estimated Average Glucose (eAG) 131 H 70-126 mg/dL Triglycerides Level 56 30-200 mg/dL Cholesterol Level 176 # <200 mg/dL LDL Cholesterol 72 0-99 mg/dL HDL Cholesterol 91 H 29-71 mg/dL Thyroid Stimulating Hormone (TSH) 0.73 0.36-3.74 uIU/mL Test 01/02/25 21:15 01/02/25 19:57 01/02/25 17:25 01/02/25 13:50 Range/Units B-Type Natriuretic Peptide 698 H 0-100 pg/mL Total Creatine Kinase 170 21-232 U/L Lactic Acid Level 2.7 H 0.8-2.5 mmol/L Whole Blood Ketones Quantitative 0.4 0.0-0.6 mmol/L DIAGNOSTICS / RADIOLOGY RESULTS: [ ] PATIENT: OMAR HELM MR#: [id number] : 1940 SEX: M AGE: 84 LOCATION: 2B ORDER 1201 STATUS: ADM IN REPORT#: [id number] SERVICE 1159 REASON: RULE OUT DVT ORDERING PHYSICIAN: ELLA DICKINSON PROCEDURE: VENOUS UNI - US VENOUS DOPPLER UNILATERAL US VENOUS DOPPLER UNILATERAL HISTORY: Right upper extremity swelling COMPARISON: None TECHNIQUE: Right upper extremity venous Doppler ultrasound study was performed. FINDINGS: The right subclavian, axillary, and brachial veins are visualized. Normal flow with augmentation and compressibilities are demonstrated. Right cephalic and basilic veins are patent. IMPRESSION: 1. No evidence of deep venous thrombosis is seen. DICTATED BY: ENZO RODRIGUES MD DATE: 01/04/25 170 ELECTRONICALLY SIGNED BY: ENZO RODRIGUES MD DATE: 01/04/25 171 IMAGING REPORT Signed PATIENT: OMAR HELM MR#: [id number] : 1940 SEX: M AGE: 84 LOCATION: 2BH ORDER 2300 STATUS: ADM IN REPORT#: [id number] SERVICE 0600 REASON: et tube position ORDERING PHYSICIAN: ELLA DICKINSON PROCEDURE: CXR1VW - CHEST 1VW CHEST 1VW HISTORY: ET tube position COMPARISON: None FINDINGS: A frontal projection of the chest was obtained. Mild bilateral pulmonary infiltrates are seen may be related to mild pulmonary vascular congestion with possible superimposed pneumonitis. There is 10% right pneumothorax. Endotracheal tube is seen with distal tip at 4.9 cm above alysha. The heart is borderline enlarged. All the lines and tubes are again seen in place. No evidence of aortic calcification is seen. IMPRESSION: 1. Mild bilateral pulmonary infiltrates are seen may be related to mild pulmonary vascular congestion with possible superimposed pneumonitis. There is 10% right pneumothorax. Endotracheal tube is seen with distal tip at 4.9 cm above alysha. Report was given to the critical care team. DICTATED BY: ENZO RODRIGUES MD DATE: 01/04/25 1051 ELECTRONICALLY SIGNED BY: ENZO RODRIGUES MD DATE: 01/04/25 1101 PLAN extubate speech swallow eval and recs maintain NPO Ng tube one to one sitter for safety bowel regimen- pending BM KUB in am PT to eval and treat NEURO: Minimize central acting medications as possible. Fall Precautions. PULMONARY: - Acute hypoxic respiratory failure requiring intubation on 01/01/25 - Bilateral Multifocal bacterial pneumonia, POA suspected micro aspiration - Suspected aspiration pneumonia, POA Supplemental 02 as needed Titrate Fio2 to keep Spo2 > or = 90% Atrovent nebs and CPT as needed IS hourly while awake for pulmonary hygiene once extubated Out of bed to chair as tolerated once extubated CARDIOVASCULAR: -Suspected acute on chronic CHF, POA Cardiac monitoring Cardiac markers Follow hemodynamics. Titrate vasopressor to keep MAP >65 or systolic blood pressure >95mmHg Drips: If needed start Precedex p.r.n. agitation LINES: PIV PICC line to right upper extremity GI & NUTRITION: Continue nutritional support Aspirations precautions Prokinetic agents and laxatives as needed Tube feedings Dietary consult KIDNEYS & ELECTROLYTES: Strict monitoring of intake and output Daily weights Avoid nephrotoxic agents Monitor electrolytes and replace as needed Goal urine output of 30mL/hr or 0.5mL/kg/hr ENDOCRINE: Type 2 diabetes mellitus with hyperglycemia Maintain blood glucose between 100-180 at all times. Insulin sliding scale for blood glucose management Add Lantus Hemoglobin A1c 6.2 TSH WNL INFECTIOUS DISEASE: Septic shock, POA requiring pressors Lactic acidosis, POA, resolved Trend temperature. Milligan-culture if febrile. Micro: Blood cultures negative Respiratory cultures Gram-positive and Gram-negative rods + Klebsiella Influenza a and B negative Strep throat negative COVID-19 negative HIV negative Antibiotics: Zosyn HEMATOLOGY & COAGULATION: -Elevated D-dimer negative for PE positive for DVT Right popliteal thrombus POA Monitor H&H. Keep Hgb > 7 Transfuse 1 unit of PRBC for Hgb < 7 Transfuse 1 pack of platelets of platelets < 20, 000 Watch for any signs and symptoms of bleeding SKIN: Pressure ulcer prevention per facility protocol Rehab: PT/OT Prophylaxis: GI: Protonix DVT: Lovenox Code Status: Full Resuscitation Disposition: ICU Other: Critical care time This patient required multiple bedside visits to manage the patient, review blood gases, coordinate with respiratory, nurses,review radiology exams, talk to the family members and discuss advanced directives. I personally spent 45 minutes of critical care time in treatment of this patient. This includes patient management, time at bedside, time reviewing tests, labs, appropriate images and studies, documentation, and patient care coordination. This time excludes separately billable procedures. ATTESTATION BY PHYSICIAN I attest that I reviewed and discussed the case with the Physician Manager Inpatient as well as agree with the Physician Manager Inpatient's findings, plans of care, and documentation above. Enrico Bliss MD, [facility] Jan 04, 2025 11:58
--- NOTE | 2025-01-04 12:14 | NUR ---
Nutritional Note: Pt intubated on vasopressors, antibiotics, and TPN withheld in favor enteral support. Nutrition needs are elevated due to infection, sepsis, and catabolic stress. Recommend: -Continue Vital af 1.2 to goal rate 30ml/hr (864kcal, 39gmpro) and re-evaluate 48-72hrs for nutritional adequacy and/or consider higher rate or concentration TF. - Monitor electrolytes and adjust TF flushes based on volume status and Lasix therapy. -Continue to monitor TF tolerance current residuals of 40ml are acceptable, only hold TF for residuals >500ml. -Monitor feeding tolerance, PO advancement, wt, and labs - if unable to tolerate EN, evaluated for PN due to malabsorption risk. -Continue with MVI -If No BM >3days consider bowel stimulant. -Schedule outpatient RD f/u for long-term nutrition care. - Notify RD if additional nutrition concerns arise. SEE RD Nutritional Assessment for additional assessment information. Addendum: 01/04/25 at [address] Amended: Links added.
--- NOTE | 2025-01-04 12:19 | PN ---
INFECTIOUS DISEASE PROGRESS NOTE Date of Service: Jan 04, 2025 SUBJECTIVE: This is an 84-year-old male patient who was seen and examined at bedside in the ICU room 210. The 2D echo done on 01/02/2025 showed a small sized, freely mobile, echodense mass seen on the anterior leaflet of the mitral valve and cannot exclude aortic valve vegetation. A SMITA was done yesterday which confirmed no presence of vegetation nor thrombus. Per nursing report patient has been on the CPAP mode since 8:00 a.m. this morning and patient is off pressors. During rounding patient is awake with good eye contact but unable to nod to yes or no questions yet. The final sputum culture results came back positive for Klebsiella aerogenes and Klebsiella oxytoca. WBC is 12.6 but is afebrile, temperature is 97.9. We will continue on vancomycin per pharmacy protocol and continue cefepime, doxycycline and metronidazole. We will continue to follow patient's care. PHYSICAL EXAM EYES: Anicteric. Pupils equal and reactive. HENT: No oral thrush seen, moist Oral mucosa NECK: Supple, no JVD or thyromegaly. LUNGS: Good air entry. Mechanical ventilation. CARDIOVASCULAR: S1, S2 regular. No murmur heard. ABDOMEN: Soft, non tender, bowel sounds present, no organomegaly CENTRAL NERVOUS SYSTEM: Intubated. SKIN: No rashes, no swelling. LYMPHATICS: No peripheral lymphadenopathy. MUSCULOSKELETAL: No joint swelling, erythema or tenderness. EXTREMITIES: No cyanosis or clubbing. BACK: No deformity, no pressure ulcer. GENITOURINARY: No dysuria or hematuria. Granger catheter. Vital Sign (Last 12 Hours) 01/04/25 01/04/25 01/04/25 01/04/25 00:15 00:30 00:39 00:45 Pulse 100 91 116 103 Resp 23 22 22 B/P (MAP) 118/74 (89) 130/75 (93) 128/45 (72) Pulse Ox 95 95 95 FiO2 50 01/04/25 01/04/25 01/04/25 01/04/25 01:00 01:15 01:30 01:45 Pulse 101 112 124 119 Resp 16 23 23 15 B/P (MAP) 135/74 (94) 171/79 (109) 162/72 (102) 169/91 (117) Pulse Ox 96 95 96 97 01/04/25 01/04/25 01/04/25 01/04/25 02:00 02:15 03:00 03:14 Pulse 125 103 89 79 Resp B/P (MAP) 140/86 (104) 109/50 (69) 138/83 (101) 132/80 (97) Pulse Ox 95 95 97 97 01/04/25 01/04/25 01/04/25 01/04/25 03:25 03:29 03:44 04:00 Temp 98.6 Pulse 83 81 82 82 Resp B/P (MAP) 132/74 (93) 138/84 (102) 135/81 (99) Pulse Ox 97 97 97 FiO2 50 01/04/25 01/04/25 01/04/25 01/04/25 04:00 04:14 04:29 04:45 Pulse 78 87 80 Resp B/P (MAP) 136/96 (109) 148/89 (108) 138/96 (110) Pulse Ox 97 97 98 98 O2 Delivery Ventilator+ FiO2 50 01/04/25 01/04/25 01/04/25 01/04/25 05:00 05:14 05:29 05:44 Pulse 88 83 80 86 Resp B/P (MAP) 130/84 (99) 128/77 (94) 132/93 (106) 132/85 (101) Pulse Ox 97 97 97 98 01/04/25 01/04/25 01/04/25 01/04/25 06:00 06:14 06:29 06:44 Pulse 79 78 75 80 Resp B/P (MAP) 138/88 (105) 133/87 (102) 131/84 (100) 138/86 (103) Pulse Ox 97 97 97 97 01/04/25 01/04/25 01/04/25 01/04/25 06:44 06:46 07:00 07:15 Pulse 79 71 86 71 Resp B/P (MAP) 133/67 (89) 137/86 (103) Pulse Ox 97 97 FiO2 50 01/04/25 01/04/25 01/04/25 01/04/25 07:28 07:30 07:45 07:54 Temp 97.9 Pulse 74 79 74 71 Resp 16 B/P (MAP) 116/79 (91) 114/72 (86) 97/55 (69) Pulse Ox 96 96 94 FiO2 50 01/04/25 01/04/25 01/04/25 01/04/25 08:00 08:00 08:00 08:15 Temp 97.9 Pulse 77 70 Resp 15 15 B/P (MAP) 102/66 (78) 102/59 (73) Pulse Ox 94 95 96 O2 Delivery CPAP+ FiO2 50 01/04/25 01/04/25 01/04/25 01/04/25 08:30 08:45 09:00 09:15 Pulse 74 74 78 77 Resp 14 15 17 18 B/P (MAP) 107/68 (81) 97/59 (72) 117/70 (86) 117/53 (74) Pulse Ox 96 95 96 96 01/04/25 01/04/25 01/04/25 01/04/25 09:30 09:45 09:52 10:00 Pulse 72 85 81 82 Resp 16 19 18 B/P (MAP) 109/67 (81) 114/70 (85) 125/68 (87) Pulse Ox 96 95 95 FiO2 40 01/04/25 10:15 Pulse 84 Resp 16 B/P (MAP) 120/74 (89) Pulse Ox 94 Intake & Output (last 24hrs) 01/03/25 01/03/25 01/04/25 15:00 23:00 07:00 Intake Total 606.7 ml 1103.5 ml 827.2 ml Output Total 1000 ml 700 ml 1180 ml Balance -393.3 ml 403.5 ml -352.8 ml LABS: Laboratory: Test 01/04/25 03:58 01/04/25 03:57 01/03/25 14:05 01/03/25 11:00 Range/Units Whole Blood Glucose 183 H 70-110 MG/DL White Blood Count 12.6 #H 4.8-10.8 K/uL Red Blood Count 4.70 4.50-6.20 MIL/uL Hemoglobin 15.0 14.0-18.0 g/dL Hematocrit 45.5 42-54 % Mean Corpuscular Volume 96.8 79-99 fL Mean Corpuscular Hemoglobin 31.9 27.0-33.0 pg Mean Corpuscular Hemoglobin Concent 33.0 32.0-36.0 g/dL Red Cell Distribution Width 14.0 11.0-15.5 % Platelet Count 161 # 130-400 K/uL Mean Platelet Volume 11.1 H 7.5-10.5 fL Immature Granulocyte % (Auto) 1.0 0-1 % Neutrophils (%) (Auto) 91.5 H 40.0-77.0 % Lymphocytes (%) (Auto) 1.7 L 21.0-51.0 % Monocytes (%) (Auto) 4.4 3.0-13.0 % Eosinophils (%) (Auto) 1.3 0.0-8.0 % Basophils (%) (Auto) 0.1 0.0-5.0 % Neutrophils # (Auto) 11.5 H 1.8-7.7 K/uL Lymphocytes # (Auto) 0.2 L 1.0-4.8 K/uL Monocytes # (Auto) 0.6 0.1-1.0 K/uL Eosinophils # (Auto) 0.16 0.00-0.70 K/uL Basophils # (Auto) 0.01 0.00-0.20 K/uL Absolute Immature Granulocyte (auto 0.12 0-1 K/uL Nucleated Red Blood Cells 0.0 0.0-0.19 % Sodium Level 146 H 136-145 mmol/L Potassium Level 4.7 3.5-5.1 mmol/L Chloride Level 111 101-111 mmol/L Carbon Dioxide Level 25 21-32 mmol/L Blood Urea Nitrogen 53 H 7-18 mg/dL Creatinine 1.6 H 0.5-1.3 mg/dL Glomerular Filtration Rate Calc 43 >90 mL/min Random Glucose 206 H 70-105 mg/dL Total Calcium 8.6 8.5-10.1 mg/dL Magnesium Level 2.80 H 1.80-2.40 mg/dL Total Bilirubin 0.8 0.2-1.0 mg/dL Aspartate Amino Transf (AST/SGOT) 20 10-37 U/L Alanine Aminotransferase (ALT/SGPT) < 6 L 12-78 U/L Alkaline Phosphatase 48 L 50-136 U/L Total Protein 6.3 6.0-8.3 g/dL Albumin 2.4 L 3.5-5.0 g/dL Blood Gas Specimen Type Arterial Arterial Blood pH 7.310 L 7.350-7.450 Arterial Blood Partial Pressure CO2 46 35-48 mmHg Arterial Blood Partial Pressure O2 111.6 H 83.0-108.0 mmHg Arterial Blood HCO3 22.4 21.0-28.0 mmol/L Arterial Blood Oxygen Saturation 97.8 94.0-98.0 % Arterial Blood Base Excess -4.0 L -2.0-3.0 mmol/L Hemoglobin (Blood Gas) 15.7 13.5-17.5 g/dL Sodium (Blood Gas) 148 H 136-145 MMOL/L Bedside Potassium (Blood Gas) 4.8 H 3.4-4.5 MMOL/L Bedside Chloride (Blood Gas) 110 H 98-107 MMOL/L Bedside Glucose (Blood Gas) 239 H 65-95 MG/DL Bedside Ionized Calcium (Blood Gas) 1.20 1.15-1.33 MMOL/L Bedside Lactic Acid (Blood Gas) 2.66 H 0.36-0.75 MMOL/L Blood Gas Temperature 37.0 35.5-37.0 CELSIUS Blood Gas Vent Mode CPAP PS 10 5 ROOM AIR FiO2 60.0 % Blood Gas CPAP 5 cm H2O Blood Gas Specimen Comment RR Blood Gas Respiration Rate 20.0 min. Blood Gas Tidal Volume 500 ml Blood Gas PEEP 5 cm H2O Test 01/03/25 07:52 01/03/25 02:34 01/02/25 21:15 01/02/25 19:57 Range/Units Troponin I High Sensitivity 341 *H 4-75 ng/L Hemoglobin A1c 6.2 H 4.0-6.0 % Estimated Average Glucose (eAG) 131 H 70-126 mg/dL Triglycerides Level 56 30-200 mg/dL Cholesterol Level 176 # <200 mg/dL LDL Cholesterol 72 0-99 mg/dL HDL Cholesterol 91 H 29-71 mg/dL Thyroid Stimulating Hormone (TSH) 0.73 0.36-3.74 uIU/mL B-Type Natriuretic Peptide 698 H 0-100 pg/mL Total Creatine Kinase 170 21-232 U/L Test 01/02/25 17:25 01/02/25 13:50 Range/Units Lactic Acid Level 2.7 H 0.8-2.5 mmol/L Whole Blood Ketones Quantitative 0.4 0.0-0.6 mmol/L DIAGNOSTICS / RADIOLOGY: PATIENT: OMAR HELM ACCT: [id number] LOC: [facility] U: [id number] AGE/SX: 84/M ROOM: 210 RE01/02/[address]: VIKAS WILD MD : 1940 BED: 1 DIS: STATUS: ADM IN TLOC: - SPEC: [id number] MARYCARMEN: 01/02/25 STATUS: RES REQ: [id number] RECD: 01/02/25 [facility] DR: BAO WILBURN MD SOURCE: SPUTUM ENTR: 01/02/[address] [facility] [address]: RADHA MCCLAIN MD SPDESC: EXPECTO ORDERED: RESP CULTURE COMMENTS: Has specimen been collected/obtained? Y Procedure Result Teressa Date-Time GRAM STAIN Final 01/02/25-111 [facility] GRAM STAIN RESULT: MODERATELY FAIR SPECIMEN [ >10SEC's/LPF AND >25 PMN's/LPF ] 1+ GRAM POSITIVE COCCI IN CHAINS AND CLUSTERS 1+ GRAM POSITIVE RODS RESPIRATORY CULTURE Preliminary 01/03/25 [facility] DESCRIPTION: REPORT 1: 3+ ORAL DEUCE ; STUDIES TO CONTINUE 1+ GRAM NEGATIVE RODS IDENTIFICATION AND SENSITIVITY TO FOLLOW Test(s) performed by: [facility] [address] [place] [id number] ASSESSMENT: Hypoxic respiratory failure requiring intubation. Multifocal pneumonia with Klebsiella aerogenes and oxytoca infection. Sepsis Endocarditis ruled out. Right lower extremity DVT. Diabetes mellitus. PLAN: Continue critical care support. Continue ventilatory support. Continue vancomycin per pharmacy protocol. Continue cefepime. Continue doxycycline. Continue metronidazole. Continue steroids. Continue GI prophylaxis. Continue Lovenox. This case was reviewed and discussed with my supervising physician and the above assessment and plan was formulated and agreed upon. ATTESTATION BY PHYSICIAN I have seen and examined the patient. I reviewed the documentation, medical decision making, and treatment plan as noted by the mid-level provider above. I agree with the findings and plan of care. VIKAS WILD MD, [facility] Jan 04, 2025 12:19
[2025-01-04] MEDS: ZOSYN 3.375GM +NS 50ML IV SCH (12:31)
--- NOTE | 2025-01-04 17:11 | HMCIMG ---
US VENOUS DOPPLER UNILATERAL HISTORY: Right upper extremity swelling COMPARISON: None TECHNIQUE: Right upper extremity venous Doppler ultrasound study was performed. FINDINGS: The right subclavian, axillary, and brachial veins are visualized. Normal flow with augmentation and compressibilities are demonstrated. Right cephalic and basilic veins are patent. IMPRESSION: 1. No evidence of deep venous thrombosis is seen.
[2025-01-04] MEDS ORDERED: VANCOMYCIN 1.5 GM/250 ML BAG 250 ML IV SCH (18:00)
[2025-01-04 21:09] LABS: SPOTTED FEVER GROUP IGG <1:64 (Neg:<1:64); SPOTTED FEVER GROUP IGM <1:64 (Neg:<1:64)
[2025-01-05] VITALS (99 sets, daily range): BP systolic 91–148; BP diastolic 41–94; PULSE 62–91; RESP 4–26; TEMP 97.4–97.9; O2SAT 94–97
[2025-01-05] MEDS: Solu-medROL 40MG VIAL IVP SCH (01:05)
[2025-01-05 02:42] LABS: BASOPHILS # (AUTO) 0.07 K/uL (0.00-0.20); BASOPHILS % (AUTO) 0.5 % (0.0-5.0); EOSINOPHILS # (AUTO) 0.31 K/uL (0.00-0.70); EOSINOPHILS % (AUTO) 2.4 % (0.0-8.0); HEMATOCRIT 44.9 % (42-54); IMMATURE GRANULOCYTE ABSOLUTE 0.03 K/uL (0-1); LYMPHOCYTES # (AUTO) 0.3 K/uL (1.0-4.8); LYMPHOCYTES % (AUTO) 2.3 % (21.0-51.0); MEAN CORPUSCULAR HGB CONC 33.2 g/dL (32.0-36.0); MEAN CORPUSCULAR VOLUME 96.6 fL (79-99); MONOCYTES # (AUTO) 0.6 K/uL (0.1-1.0); MONOCYTES % (AUTO) 4.4 % (3.0-13.0); NEUTROPHILS # (AUTO) 11.8 K/uL (1.8-7.7); NEUTROPHILS % (AUTO) 90.2 % (40.0-77.0); PLATELET COUNT (AUTO) 145 K/uL (130-400); RED BLOOD CELL COUNT(AUTO) 4.65 MIL/uL (4.50-6.20); WHITE BLOOD COUNT (AUTO) 13.1 K/uL (4.8-10.8)
[2025-01-05 03:04] LABS: ALBUMIN 2.3 g/dL (3.5-5.0); ASPARTATE AMINOTRANSFERASE 15 U/L (10-37); BILIRUBIN,TOTAL 0.9 mg/dL (0.2-1.0); CARBON DIOXIDE 30 mmol/L (21-32); CHLORIDE 114 mmol/L (101-111); CREATININE 1.4 mg/dL (0.5-1.3); GLOMERULAR FILTR. RATE CALC 50 mL/min (>90); GLUCOSE,RANDOM 202 mg/dL (70-105); POTASSIUM 4.2 mmol/L (3.5-5.1); SODIUM SERUM 151 mmol/L (136-145); UREA NITROGEN, BLOOD 62 mg/dL (7-18)
[2025-01-05 03:08] LABS: ALANINE AMINOTRANSFERASE < 6 U/L (12-78)
--- NOTE | 2025-01-05 09:48 | PN ---
[facility] PROGRESS NOTE Date Patient Seen: Jan 05, 2025 Time of Visit: 09:48 Supervising Physician: Enrico Maya MD Primary Care Physician: Cielo Bledsoe MD Outpatient Specialists: none Inpatient Consults: Critical care BIS, PROBLEM LIST: Acute hypoxic respiratory failure requiring intubation on 01/01/25, extubated 01/04/25 Bilateral Multifocal bacterial pneumonia, +(Klebsiella Aerogenes and Klebsiella Oxytoca POA Suspected aspiration pneumonia, POA -Pending MBSS Acute on chronic HFpEF 60-65% POA Septic shock, POA requiring pressors, resolved suspected mitral bacterial endocarditis, (ruled out) per SMITA Lactic acidosis, POA Elevated D-dimer negative for PE positive for superficial popliteal thrombus Acute non-anion gap metabolic acidosis, POA Right popliteal Thrombus POA Cardiomegaly Parkinson's disease Victorino Parkinson's White syndrome Hyperglycemia in the presence of type 2 diabetes mellitus Pancreatitis, POA Hypomagnesemia INTERVAL HISTORY: Patient remains extubated. Overnight patient was delirious and agitated. Per he was very confused. Sitter at the bedside and on Precedex at 0.4 mcg/kg per hour. Current RASS of -1. He is hemodynamically stable blood pressure 123/74 heart rate in the 80s respiratory rate of 19 unlabored saturating 94% with 3 L via nasal cannula and afebrile. We will start low-dose Valium at 2 mg IV q.8 hours in attempt to wean Precedex off. He has good urine output with 2 L out and chest tube drained 80 mL. Resolution of pneumothorax to the right side we will start putting chest tube to drain to water seal. On laboratory WBCs are 13.1 likely from steroids. Sodium 151 was start D5 at 50 mL/hour and water flushes. Creatinine is improved 1.2 GFR of 60. Glucose of 287 we will adjust insulin. REVIEW OF SYSTEMS: Unable to perform due to patient's intubated and sedated. PHYSICAL EXAM: GENERAL: Patient awake alert and oriented to name. follows commands but confused GCS of 14, RASS -1. HEENT: Sclerae nonicteric, moist mucosa. NECK: Supple, no JVD, trachea midline LUNGS: Clear breath sounds bilaterally. No wheezes HEART: Regular rate and rhythm. Normal S1 and S2, without murmurs ABD: Abdomen soft nontender, normal bowel sounds. EXT: +1 pitting edema to right lower extremity NEURO: Awake follows commands and no focal deficits, Hx of Parkinson. Vital Signs (last 8hr) Date Time Temp Pulse Resp B/P (MAP) Pulse Ox O2 Delivery O2 Flow Rate FiO2 01/05/25 07:50 97.3 Nasal Cannula 3.0 01/05/25 07:30 77 20 109/61 (77) 96 01/05/25 07:30 75 17 N/Cannula Low lpm 21 01/05/25 07:15 87 19 126/80 (95) 97 01/05/25 07:00 106/67 (80) 01/05/25 06:00 80 21 128/70 (89) 95 32 01/05/25 05:45 84 20 107/41 (63) 93 01/05/25 05:30 84 17 110/57 (74) 95 01/05/25 05:15 77 18 115/56 (75) 96 01/05/25 05:00 86 20 127/73 (91) 95 32 01/05/25 04:45 74 19 114/78 (90) 93 01/05/25 04:30 77 18 124/75 (91) 96 01/05/25 04:15 80 21 110/66 (81) 95 01/05/25 04:10 94 Nasal Cannula* 3 32 01/05/25 04:02 97.7 01/05/25 04:00 78 20 108/60 (76) 95 32 01/05/25 03:45 81 17 108/55 (72) 96 01/05/25 03:30 84 19 116/63 (80) 94 01/05/25 03:15 74 18 97 01/05/25 03:00 76 23 116/82 (93) 94 32 01/05/25 02:45 75 23 115/62 (79) 94 01/05/25 02:30 81 24 148/94 (112) 97 01/05/25 02:15 78 20 126/83 (97) 96 01/05/25 02:00 89 26 132/80 (97) 95 32 LABS: Hematology Labs: Test 01/05/25 02:34 Range/Units White Blood Count 13.1 H 4.8-10.8 K/uL Red Blood Count 4.65 4.50-6.20 MIL/uL Hemoglobin 14.9 14.0-18.0 g/dL Hematocrit 44.9 42-54 % Mean Corpuscular Volume 96.6 79-99 fL Mean Corpuscular Hemoglobin 32.0 27.0-33.0 pg Mean Corpuscular Hemoglobin Concent 33.2 32.0-36.0 g/dL Red Cell Distribution Width 14.0 11.0-15.5 % Platelet Count 145 130-400 K/uL Mean Platelet Volume 10.9 H 7.5-10.5 fL Immature Granulocyte % (Auto) 0.2 0-1 % Neutrophils (%) (Auto) 90.2 H 40.0-77.0 % Lymphocytes (%) (Auto) 2.3 L 21.0-51.0 % Monocytes (%) (Auto) 4.4 3.0-13.0 % Eosinophils (%) (Auto) 2.4 0.0-8.0 % Basophils (%) (Auto) 0.5 0.0-5.0 % Neutrophils # (Auto) 11.8 H 1.8-7.7 K/uL Lymphocytes # (Auto) 0.3 L 1.0-4.8 K/uL Monocytes # (Auto) 0.6 0.1-1.0 K/uL Eosinophils # (Auto) 0.31 0.00-0.70 K/uL Basophils # (Auto) 0.07 0.00-0.20 K/uL Absolute Immature Granulocyte (auto 0.03 0-1 K/uL Nucleated Red Blood Cells 0.0 0.0-0.19 % Chemistry Labs: Test 01/05/25 04:47 01/05/25 02:34 Range/Units Whole Blood Glucose 194 H 70-110 MG/DL Sodium Level 151 H 136-145 mmol/L Potassium Level 4.2 3.5-5.1 mmol/L Chloride Level 114 H 101-111 mmol/L Carbon Dioxide Level 30 21-32 mmol/L Blood Urea Nitrogen 62 H 7-18 mg/dL Creatinine 1.4 H 0.5-1.3 mg/dL Glomerular Filtration Rate Calc 50 >90 mL/min Random Glucose 202 H 70-105 mg/dL Total Calcium 8.8 8.5-10.1 mg/dL Magnesium Level 2.60 H 1.80-2.40 mg/dL Total Bilirubin 0.9 0.2-1.0 mg/dL Aspartate Amino Transf (AST/SGOT) 15 10-37 U/L Alanine Aminotransferase (ALT/SGPT) < 6 L 12-78 U/L Alkaline Phosphatase 52 50-136 U/L Total Protein 6.0 6.0-8.3 g/dL Albumin 2.3 L 3.5-5.0 g/dL DIAGNOSTICS / RADIOLOGY RESULTS: [ ] IMAGING REPORT Signed PATIENT: OMAR HELM MR#: [id number] : 1940 SEX: M AGE: 84 LOCATION: 2BH ORDER 15 STATUS: ADM IN REPORT#: [id number] SERVICE 14 REASON: NG placement ORDERING PHYSICIAN: ELLA DICKINSON PROCEDURE: CXR1VW - CHEST 1VW Exam Type: CHEST 1VW Clinical Information: NG placement Comparison: None Findings: Nasogastric tube tip is noted in patient's stomach and no other interval changes are seen. IMPRESSION: Nasogastric tube tip in stomach. DICTATED BY: SAMARA SANCHEZ MD DATE: 01/05/251444 ELECTRONICALLY SIGNED BY: SAMARA SANCHEZ MD DATE: 01/05/251446 PLAN valim 2mg ivp q 8 hrs wean off Precedex MBSS to assess for aspiration speech swallow eval and recs maintain NPO Ng tube one to one sitter for safety bowel regimen- pending BM PT to eval and treat NEURO: Minimize central acting medications as possible. Fall Precautions. PULMONARY: - Acute hypoxic respiratory failure requiring intubation on 01/01/25 - Bilateral Multifocal bacterial pneumonia, POA suspected micro aspiration - Suspected aspiration pneumonia, POA Supplemental 02 as needed Titrate Fio2 to keep Spo2 > or = 90% Atrovent nebs and CPT as needed IS hourly while awake for pulmonary hygiene once extubated Out of bed to chair as tolerated once extubated CARDIOVASCULAR: -Suspected acute on chronic CHF, POA Cardiac monitoring Cardiac markers Follow hemodynamics. Titrate vasopressor to keep MAP >65 or systolic blood pressure >95mmHg Drips: If needed start Precedex p.r.n. agitation LINES: PIV PICC line to right upper extremity GI & NUTRITION: Continue nutritional support Aspirations precautions Prokinetic agents and laxatives as needed Tube feedings Dietary consult KIDNEYS & ELECTROLYTES: Strict monitoring of intake and output Daily weights Avoid nephrotoxic agents Monitor electrolytes and replace as needed Goal urine output of 30mL/hr or 0.5mL/kg/hr ENDOCRINE: Type 2 diabetes mellitus with hyperglycemia Maintain blood glucose between 100-180 at all times. Insulin sliding scale for blood glucose management Add Lantus Hemoglobin A1c 6.2 TSH WNL INFECTIOUS DISEASE: Septic shock, POA requiring pressors Lactic acidosis, POA, resolved Trend temperature. Milligan-culture if febrile. Micro: Blood cultures negative Respiratory cultures Gram-positive and Gram-negative rods + Klebsiella Influenza a and B negative Strep throat negative COVID-19 negative HIV negative Antibiotics: Zosyn HEMATOLOGY & COAGULATION: -Elevated D-dimer negative for PE positive for DVT Right popliteal thrombus POA Monitor H&H. Keep Hgb > 7 Transfuse 1 unit of PRBC for Hgb < 7 Transfuse 1 pack of platelets of platelets < 20, 000 Watch for any signs and symptoms of bleeding SKIN: Pressure ulcer prevention per facility protocol Rehab: PT/OT Prophylaxis: GI: Protonix DVT: Lovenox Code Status: Full Resuscitation Disposition: ICU Other: Critical care time This patient required multiple bedside visits to manage the patient, review blood gases, coordinate with respiratory, nurses,review radiology exams, talk to the family members and discuss advanced directives. I personally spent 45 minutes of critical care time in treatment of this patient. This includes patient management, time at bedside, time reviewing tests, labs, appropriate images and studies, documentation, and patient care coordination. This time excludes separately billable procedures. ATTESTATION BY PHYSICIAN I attest that I reviewed and discussed the case with the Physician Digital Cartographic Technician as well as agree with the Physician Digital Cartographic Technician's findings, plans of care, and documentation above. Enrico Bliss MD, [facility] Jan 05, 2025 09:48
--- NOTE | 2025-01-05 09:48 | HMCIMG ---
Exam Type: CHEST 1VW Clinical Information: et tube position Comparison: None Findings: Nasogastric tube tip is noted in patient's stomach and no other interval changes are seen. IMPRESSION: Nasogastric tube tip in stomach.
[2025-01-05] MEDS: DEXTROSE 5%-WATER 1,000 ML IV SCH (10:38)
[2025-01-05] MEDS: BisaCODYL 10 MG SUPP.RECT RC SCH (10:38)
[2025-01-05] MEDS: ENOXAPARIN SODIUM 40 MG/0.4 ML SYRINGE SQ SCH (10:41)
[2025-01-05] MEDS: diazePAM 5 MG/ML 2 ML SYG IV SCH (10:59)
--- NOTE | 2025-01-05 13:51 | PN ---
INFECTIOUS DISEASE PROGRESS NOTE Date of Service: Jan 05, 2025 SUBJECTIVE: This is an 84-year-old male patient who was seen and examined at bedside in the ICU room 210. Patient is status post SMITA on 01/03/2025 which was negative for endocarditis. Patient was extubated yesterday and is currently on oxygen via nasal cannula at 3 L/min. During rounding today patient is confused and on a one-to-one sitter observation. Patient is afebrile, temperature is 97.5 but the WBC is slightly elevated at 13.1. We will continue on vancomycin, cefepime, doxycycline and metronidazole. We will have case management evaluate patient for referral to [facility]. No other issues reported by nursing. PHYSICAL EXAM EYES: Anicteric. Pupils equal and reactive. HENT: No oral thrush seen, moist Oral mucosa NECK: Supple, no JVD or thyromegaly. LUNGS: Good air entry. Mechanical ventilation. CARDIOVASCULAR: S1, S2 regular. No murmur heard. ABDOMEN: Soft, non tender, bowel sounds present, no organomegaly CENTRAL NERVOUS SYSTEM: Intubated. SKIN: No rashes, no swelling. LYMPHATICS: No peripheral lymphadenopathy. MUSCULOSKELETAL: No joint swelling, erythema or tenderness. EXTREMITIES: No cyanosis or clubbing. BACK: No deformity, no pressure ulcer. GENITOURINARY: No dysuria or hematuria. Granger catheter. Vital Sign (Last 12 Hours) 01/05/25 01/05/25 01/05/25 01/05/25 02:00 02:15 02:30 02:45 Pulse 89 78 81 75 Resp 26 20 24 23 B/P (MAP) 132/80 (97) 126/83 (97) 148/94 (112) 115/62 (79) Pulse Ox 95 96 97 94 FiO2 32 01/05/25 01/05/25 01/05/25 01/05/25 03:00 03:15 03:30 03:45 Pulse 76 74 84 81 Resp 23 18 19 17 B/P (MAP) 116/82 (93) 116/63 (80) 108/55 (72) Pulse Ox 94 97 94 96 FiO2 32 01/05/25 01/05/25 01/05/25 01/05/25 04:00 04:02 04:10 04:15 Temp 97.7 Pulse 78 80 Resp 20 21 B/P (MAP) 108/60 (76) 110/66 (81) Pulse Ox 95 94 95 O2 Delivery Nasal Cannula* O2 Flow Rate 3 FiO2 32 32 01/05/25 01/05/25 01/05/25 01/05/25 04:30 04:45 05:00 05:15 Pulse 77 74 86 77 Resp 18 19 20 18 B/P (MAP) 124/75 (91) 114/78 (90) 127/73 (91) 115/56 (75) Pulse Ox 96 93 95 96 FiO2 32 01/05/25 01/05/25 01/05/25 01/05/25 05:30 05:45 06:00 07:00 Pulse 84 84 80 Resp 17 20 21 B/P (MAP) 110/57 (74) 107/41 (63) 128/70 (89) 106/67 (80) Pulse Ox 95 93 95 FiO2 32 01/05/25 01/05/25 01/05/25 01/05/25 07:15 07:30 07:30 07:45 Pulse 87 75 77 83 Resp 19 17 20 19 B/P (MAP) 126/80 (95) 109/61 (77) 109/62 (78) Pulse Ox 97 96 94 O2 Delivery N/Cannula Low lpm FiO2 21 01/05/25 01/05/25 01/05/25 01/05/25 07:50 08:00 08:15 08:30 Temp 97.3 Pulse 76 76 72 Resp 19 17 22 B/P (MAP) 109/72 (84) 100/58 (72) 105/53 (70) Pulse Ox 95 97 94 O2 Delivery Nasal Cannula O2 Flow Rate 3.0 01/05/25 01/05/25 01/05/25 01/05/25 08:45 09:00 09:15 09:30 Pulse 69 70 74 70 Resp 16 17 17 19 B/P (MAP) 106/59 (75) 101/51 (68) 97/53 (68) 99/56 (70) Pulse Ox 97 95 95 95 01/05/25 01/05/25 01/05/25 01/05/25 09:45 10:00 10:15 10:30 Pulse 70 73 77 74 Resp 19 21 18 16 B/P (MAP) 91/60 (70) 101/59 (73) 99/52 (68) 102/44 (63) Pulse Ox 94 94 95 95 01/05/25 01/05/25 01/05/25 01/05/25 10:45 11:00 11:15 11:30 Pulse 80 82 85 83 Resp 16 23 16 B/P (MAP) 133/78 (96) 94/52 (66) 108/57 (74) 114/67 (83) Pulse Ox 95 95 90 92 01/05/25 01/05/25 01/05/25 01/05/25 11:45 12:00 12:00 12:15 Temp 97.5 Pulse 91 80 79 Resp 21 19 23 B/P (MAP) 117/76 (90) 123/74 (90) 121/64 (83) Pulse Ox 91 95 95 O2 Delivery Nasal Cannula O2 Flow Rate 3.0 01/05/25 01/05/25 01/05/25 12:30 12:45 13:00 Pulse 81 83 75 Resp 19 25 B/P (MAP) 113/64 (80) 118/83 (95) 103/63 (76) Pulse Ox 98 94 95 Intake & Output (last 24hrs) 01/04/25 01/04/25 01/05/25 15:00 23:00 07:00 Intake Total 456.2 ml 648.1 ml 663.1 ml Output Total 1010 ml 570 ml 550 ml Balance -553.8 ml 78.1 ml 113.1 ml LABS: Laboratory: Test 01/05/25 04:47 01/05/25 02:34 01/03/25 14:05 Range/Units Whole Blood Glucose 194 H 70-110 MG/DL White Blood Count 13.1 H 4.8-10.8 K/uL Red Blood Count 4.65 4.50-6.20 MIL/uL Hemoglobin 14.9 14.0-18.0 g/dL Hematocrit 44.9 42-54 % Mean Corpuscular Volume 96.6 79-99 fL Mean Corpuscular Hemoglobin 32.0 27.0-33.0 pg Mean Corpuscular Hemoglobin Concent 33.2 32.0-36.0 g/dL Red Cell Distribution Width 14.0 11.0-15.5 % Platelet Count 145 130-400 K/uL Mean Platelet Volume 10.9 H 7.5-10.5 fL Immature Granulocyte % (Auto) 0.2 0-1 % Neutrophils (%) (Auto) 90.2 H 40.0-77.0 % Lymphocytes (%) (Auto) 2.3 L 21.0-51.0 % Monocytes (%) (Auto) 4.4 3.0-13.0 % Eosinophils (%) (Auto) 2.4 0.0-8.0 % Basophils (%) (Auto) 0.5 0.0-5.0 % Neutrophils # (Auto) 11.8 H 1.8-7.7 K/uL Lymphocytes # (Auto) 0.3 L 1.0-4.8 K/uL Monocytes # (Auto) 0.6 0.1-1.0 K/uL Eosinophils # (Auto) 0.31 0.00-0.70 K/uL Basophils # (Auto) 0.07 0.00-0.20 K/uL Absolute Immature Granulocyte (auto 0.03 0-1 K/uL Nucleated Red Blood Cells 0.0 0.0-0.19 % Sodium Level 151 H 136-145 mmol/L Potassium Level 4.2 3.5-5.1 mmol/L Chloride Level 114 H 101-111 mmol/L Carbon Dioxide Level 30 21-32 mmol/L Blood Urea Nitrogen 62 H 7-18 mg/dL Creatinine 1.4 H 0.5-1.3 mg/dL Glomerular Filtration Rate Calc 50 >90 mL/min Random Glucose 202 H 70-105 mg/dL Total Calcium 8.8 8.5-10.1 mg/dL Magnesium Level 2.60 H 1.80-2.40 mg/dL Total Bilirubin 0.9 0.2-1.0 mg/dL Aspartate Amino Transf (AST/SGOT) 15 10-37 U/L Alanine Aminotransferase (ALT/SGPT) < 6 L 12-78 U/L Alkaline Phosphatase 52 50-136 U/L Total Protein 6.0 6.0-8.3 g/dL Albumin 2.3 L 3.5-5.0 g/dL Blood Gas Specimen Type Arterial Arterial Blood pH 7.310 L 7.350-7.450 Arterial Blood Partial Pressure CO2 46 35-48 mmHg Arterial Blood Partial Pressure O2 111.6 H 83.0-108.0 mmHg Arterial Blood HCO3 22.4 21.0-28.0 mmol/L Arterial Blood Oxygen Saturation 97.8 94.0-98.0 % Arterial Blood Base Excess -4.0 L -2.0-3.0 mmol/L Hemoglobin (Blood Gas) 15.7 13.5-17.5 g/dL Sodium (Blood Gas) 148 H 136-145 MMOL/L Bedside Potassium (Blood Gas) 4.8 H 3.4-4.5 MMOL/L Bedside Chloride (Blood Gas) 110 H 98-107 MMOL/L Bedside Glucose (Blood Gas) 239 H 65-95 MG/DL Bedside Ionized Calcium (Blood Gas) 1.20 1.15-1.33 MMOL/L Bedside Lactic Acid (Blood Gas) 2.66 H 0.36-0.75 MMOL/L Blood Gas Temperature 37.0 35.5-37.0 CELSIUS Blood Gas Vent Mode CPAP PS 10 5 ROOM AIR FiO2 60.0 % Blood Gas CPAP 5 cm H2O Blood Gas Specimen Comment RR DIAGNOSTICS / RADIOLOGY: PATIENT: OMAR HELM ACCT: [id number] LOC: [facility] U: [id number] AGE/SX: 84/M ROOM: 210 RE01/02/[address]: VIKAS WILD MD : 1940 BED: 1 DIS: STATUS: ADM IN TLOC: SPEC: [id number] MARYCARMEN: 01/02/25 STATUS: COMP REQ: [id number] RECD: 01/02/[address]: BAO WILBURN MD SOURCE: SPUTUM ENTR: 01/02/25 [facility] DR: RADHA MCCLAIN MD SPDESC: EXPECTO ORDERED: RESP CULTURE COMMENTS: Has specimen been collected/obtained? Y Procedure Result Teressa Date-Time GRAM STAIN Final 01/02/25-1119 [facility] GRAM STAIN RESULT: MODERATELY FAIR SPECIMEN [ >10SEC's/LPF AND >25 PMN's/LPF ] 1+ GRAM POSITIVE COCCI IN CHAINS AND CLUSTERS 1+ GRAM POSITIVE RODS RESPIRATORY CULTURE Final 01/04/25-0704 [facility] COLONY DESCRIPTION: REPORT 1: 3+ ORAL DEUCE ; STUDIES TO CONTINUE 1+ GRAM NEGATIVE RODS IDENTIFICATION AND SENSITIVITY TO FOLLOW REPORT 2: NO FURTHER WORK-UP DONE KLEBSIELLA AEROGENES KLEBSIELLA OXYTOCA KLEB AERGE K OXYTOCA M.I.C. RX M.I.C. RX --------- ---- --------- ---- AZTREONAM <=4 S <=4 S CEFAZOLIN 8 R CEFTAZIDIME <=1 S CEFTAZIDIME/AVIBACTAM <=8 S <=8 S CEFTRIAXONE <=1 S GENTAMICIN <=2 S <=2 S LEVOFLOXACIN <=0.5 S <=0.5 S AMPICILLIN/SULBACTAM <=8/4 S MEROPENEM <=1 S <=1 S PIPERACILLIN/TAZOBACTAM <=8 S <=8 S TRIMETHOPRIM/SUFLAMETHOXAZOLE <=2/38 S <=2/38 S ASSESSMENT: Hypoxic respiratory failure requiring intubation, status post extubated on 01/04/2025. Multifocal pneumonia with Klebsiella aerogenes and oxytoca infection. Sepsis Endocarditis ruled out. Right lower extremity DVT. Leukocytosis. Diabetes mellitus. PLAN: Continue critical care support. Continue vancomycin per pharmacy protocol. Continue cefepime. Continue doxycycline. Continue metronidazole. Continue steroids. Continue oxygen support. Continue GI prophylaxis. Continue Lovenox. Case management to evaluate for referral to [facility]. This case was reviewed and discussed with my supervising physician and the above assessment and plan was formulated and agreed upon. ATTESTATION BY PHYSICIAN I have seen and examined the patient. I reviewed the documentation, medical decision making, and treatment plan as noted by the mid-level provider above. I agree with the findings and plan of care. VIKAS WILD MD, [facility]TA [facility] Jan 05, 2025 13:51
--- NOTE | 2025-01-05 14:18 | NUR ---
SPEECH NOTE: SOFTWARE SALES arrived to patient's room for bedside swallow evaluation as per order; however, nurse Cruz at bedside reports patient is drowsy and agitated at this time. Nurse was informed that patient must first be evaluated by SOFTWARE SALES prior to any oral intake. SOFTWARE SALES will follow up likely on Wednesday for bedside swallow eval/MBSS. Continue with NG tube feedings until then. All questions answered. Addendum: 01/05/[address] SARAH RUFFIN Amended: Links added.
--- NOTE | 2025-01-05 14:47 | HMCIMG ---
Exam Type: CHEST 1VW Clinical Information: NG placement Comparison: None Findings: Nasogastric tube tip is noted in patient's stomach and no other interval changes are seen. IMPRESSION: Nasogastric tube tip in stomach.
--- NOTE | 2025-01-05 15:41 | NUR ---
cm note call made to pt's and discussed orders for [facility] ltach level of care. requesting to possible speak to rep at [facility] and possible tour of facility. obtained Sharmila, but wishes to speak to [facility] rep first. call made to Fatou gonzalez [facility] . states she will speak to first.
--- NOTE | 2025-01-05 16:48 | NUR ---
PT held per nursing. PT to follow.
[2025-01-05 18:40] LABS: CREATININE 1.2 mg/dL (0.5-1.3); MAGNESIUM 2.5 mg/dL (1.80-2.40); POTASSIUM 4.1 mmol/L (3.5-5.1)
[2025-01-05] MEDS: LACTULOSE 20 GM/30 ML UDCUP PO SCH (21:07)
[2025-01-05] MEDS: INSULIN humuLIN R 100 UNIT/ML 3ML SQ SCH (21:09)
[2025-01-05] MEDS: INSULIN GLARgine 100 UNITS/ML 10 ML VIAL SQ SCH (21:10)
--- NOTE | 2025-01-05 21:32 | NUR ---
Pt on precedex at this time with RASS of -1. Pt with increasing agitation and impulsiveness starting at 1900 during handoff. Cruz RN and pt's spouse, Nadege at bedside. During this time, pt was oriented to self, place, and time, but expressing confused thoughts to situation including vehement denials that he was sick and that staff and spouse at bedside were trying to harm him. Pt. was agitated but not combative - nursing staff development coordinator's and spouse were able to divert and deescalate while precedex was titrated to effect. Precedex currently running at 1.2 mcg/kg/hr with HR at 66 bpm with frequent PVC's and BP at 115/63. Pt arousable to voice and able to maintain eye contact >10 seconds. Able to move all extremities and is now following all commands including allowing this RN to perform oral care.
[2025-01-06] VITALS (99 sets, daily range): BP systolic 91–156; BP diastolic 47–100; PULSE 45–79; RESP 13–40; TEMP 97.3–98.9; O2SAT 95–100
[2025-01-06 03:44] LABS: BASOPHILS # (AUTO) 0.04 K/uL (0.00-0.20); BASOPHILS % (AUTO) 0.3 % (0.0-5.0); EOSINOPHILS # (AUTO) 0.24 K/uL (0.00-0.70); EOSINOPHILS % (AUTO) 1.8 % (0.0-8.0); HEMATOCRIT 47.1 % (42-54); IMMATURE GRANULOCYTE ABSOLUTE 0.12 K/uL (0-1); LYMPHOCYTES # (AUTO) 0.5 K/uL (1.0-4.8); LYMPHOCYTES % (AUTO) 3.8 % (21.0-51.0); MEAN CORPUSCULAR HGB CONC 33.3 g/dL (32.0-36.0); MEAN CORPUSCULAR VOLUME 96.1 fL (79-99); MONOCYTES # (AUTO) 0.9 K/uL (0.1-1.0); MONOCYTES % (AUTO) 6.7 % (3.0-13.0); NEUTROPHILS # (AUTO) 11.5 K/uL (1.8-7.7); NEUTROPHILS % (AUTO) 86.5 % (40.0-77.0); PLATELET COUNT (AUTO) 144 K/uL (130-400); RED CELL DISTRIBUTION WIDTH 13.7 % (11.0-15.5); WHITE BLOOD COUNT (AUTO) 13.3 K/uL (4.8-10.8)
[2025-01-06 04:00] LABS: CARBON DIOXIDE 33 mmol/L (21-32); CHLORIDE 116 mmol/L (101-111); CREATININE 1.1 mg/dL (0.5-1.3); GLOMERULAR FILTR. RATE CALC 67 mL/min (>90); GLUCOSE,RANDOM 118 mg/dL (70-105); POTASSIUM 3.9 mmol/L (3.5-5.1); SODIUM SERUM 152 mmol/L (136-145); UREA NITROGEN, BLOOD 57 mg/dL (7-18)
[2025-01-06 04:04] LABS: AMMONIA < 10 umol/L (11-32)
[2025-01-06] MEDS: polyETHYLene GLYCol 3350 17 GM POWD.PACK PO SCH (08:43)
--- NOTE | 2025-01-06 09:03 | HMCIMG ---
FRONTAL CHEST RADIOGRAPH INDICATION: hypoxic resp failure COMPARISON: 01/05/2025 FINDINGS/IMPRESSION: case monitor leads overlie the field of view. Stable right PICC and NG tube. Stable heart size without pulmonary vascular congestion. Unchanged right lower lung opacities and minimal left lung base scarring and/or atelectasis, without pneumothorax.
--- NOTE | 2025-01-06 11:07 | PN ---
[facility] PROGRESS NOTE Date Patient Seen: Jan 06, 2025 Time of Visit: 11:07 Supervising Physician: Enrico Maya MD Primary Care Physician: Cielo Bledsoe MD Outpatient Specialists: none Inpatient Consults: Critical care BIS, PROBLEM LIST: Bilateral Multifocal bacterial pneumonia, +(Klebsiella Aerogenes and Klebsiella Oxytoca POA Acute hypoxemic respiratory failure POA status post extubation Suspected aspiration pneumonia, POA -Pending MBSS Acute on chronic HFpEF 60-65% POA Septic shock, POA requiring pressors, resolved suspected mitral bacterial endocarditis, (ruled out) per SMITA Lactic acidosis, POA Elevated D-dimer negative for PE positive for superficial popliteal thrombus Acute non-anion gap metabolic acidosis, POA Right popliteal Thrombus POA Cardiomegaly Parkinson's disease Victorino Parkinson's White syndrome Hyperglycemia in the presence of type 2 diabetes mellitus Pancreatitis, POA Hypomagnesemia INTERVAL HISTORY: Patient remains extubated saturating 97% with 2 L via nasal cannula. Continues confused. He is hemodynamically stable heart rate in the 60s and afebrile. Currently on Precedex at 0.8 mcg/kg per hour pending down. Continues with the evaluating 2 mg IV Q 8 hours and we will add Seroquel 12.5 b.i.d. per NG tube. Ammonia is normal, white count similar to yesterday 13.3 neutrophils 86.5 trending down. Chemistries sodium is 150 trending down BUN 57 creatinine of 1.1 GFR 67 improved from admission. Chest x-ray showing stable right PICC line NG tube. Stable heart size with a pulmonary vascular congestion. Unchanged right lower lung opacities and minimal left lung base scarring and/or atelectasis without pneumothorax. Updated patient's on clinical findings and plan of care. She is in agreement. REVIEW OF SYSTEMS: Unable to perform due to patient's intubated and sedated. PHYSICAL EXAM: GENERAL: Patient awake alert and oriented to name. follows commands but confused GCS of 14, RASS -1. HEENT: Sclerae nonicteric, moist mucosa. NECK: Supple, no JVD, trachea midline LUNGS: Clear breath sounds bilaterally. No wheezes HEART: Regular rate and rhythm. Normal S1 and S2, without murmurs ABD: Abdomen soft nontender, normal bowel sounds. EXT: +1 pitting edema to right lower extremity NEURO: Awake follows commands and no focal deficits, Hx of Parkinson. Vital Signs (last 8hr) Date Time Temp Pulse Resp B/P (MAP) Pulse Ox O2 Delivery O2 Flow Rate FiO2 01/06/25 10:30 63 20 149/68 (95) 95 01/06/25 10:15 62 19 125/64 (84) 96 01/06/25 10:00 65 18 123/56 (78) 97 01/06/25 09:45 68 17 138/75 (96) 97 01/06/25 09:30 66 16 139/88 (105) 97 01/06/25 09:15 66 16 139/96 (110) 91 01/06/25 09:00 70 24 133/81 (98) 95 01/06/25 08:45 66 25 128/61 (83) 90 01/06/25 08:30 65 20 115/69 (84) 93 01/06/25 08:15 65 24 114/67 (83) 95 01/06/25 08:00 62 20 120/85 (97) 98 01/06/25 08:00 98.4 Nasal Cannula 2.0 01/06/25 07:45 57 17 121/80 (94) 99 01/06/25 07:30 61 16 120/68 (85) 98 01/06/25 07:15 61 17 121/57 (78) 96 01/06/25 07:00 61 21 122/54 (76) 96 01/06/25 06:48 62 18 N/Cannula Low lpm 2.0 28 01/06/25 06:45 62 23 126/68 (87) 96 01/06/25 06:44 62 20 01/06/25 06:30 57 19 110/62 (78) 96 01/06/25 06:15 64 27 115/58 (77) 94 01/06/25 06:00 58 18 111/60 (77) 97 01/06/25 05:45 56 17 110/66 (81) 98 01/06/25 05:30 58 17 118/47 (70) 98 01/06/25 05:15 60 17 106/52 (70) 97 01/06/25 05:00 62 18 112/64 (80) 94 32 01/06/25 04:45 65 19 109/77 (88) 99 01/06/25 04:30 60 19 115/56 (75) 98 01/06/25 04:15 55 19 102/68 (79) 99 01/06/25 04:00 97.3 Nasal Cannula 3.0 01/06/25 04:00 55 21 98/49 (65) 98 32 01/06/25 04:00 96 Nasal Cannula* 3 32 01/06/25 03:45 46 21 105/67 (80) 96 01/06/25 03:30 57 21 112/48 (69) 97 01/06/25 03:15 56 17 115/63 (80) 98 LABS: Hematology Labs: Test 01/06/25 03:15 Range/Units White Blood Count 13.3 H 4.8-10.8 K/uL Red Blood Count 4.90 4.50-6.20 MIL/uL Hemoglobin 15.7 14.0-18.0 g/dL Hematocrit 47.1 42-54 % Mean Corpuscular Volume 96.1 79-99 fL Mean Corpuscular Hemoglobin 32.0 27.0-33.0 pg Mean Corpuscular Hemoglobin Concent 33.3 32.0-36.0 g/dL Red Cell Distribution Width 13.7 11.0-15.5 % Platelet Count 144 130-400 K/uL Mean Platelet Volume 11.2 H 7.5-10.5 fL Immature Granulocyte % (Auto) 0.9 0-1 % Neutrophils (%) (Auto) 86.5 H 40.0-77.0 % Lymphocytes (%) (Auto) 3.8 L 21.0-51.0 % Monocytes (%) (Auto) 6.7 3.0-13.0 % Eosinophils (%) (Auto) 1.8 0.0-8.0 % Basophils (%) (Auto) 0.3 0.0-5.0 % Neutrophils # (Auto) 11.5 H 1.8-7.7 K/uL Lymphocytes # (Auto) 0.5 L 1.0-4.8 K/uL Monocytes # (Auto) 0.9 0.1-1.0 K/uL Eosinophils # (Auto) 0.24 0.00-0.70 K/uL Basophils # (Auto) 0.04 0.00-0.20 K/uL Absolute Immature Granulocyte (auto 0.12 0-1 K/uL Nucleated Red Blood Cells 0.0 0.0-0.19 % Chemistry Labs: Test 01/06/25 09:07 01/06/25 07:50 01/06/25 03:15 01/05/25 17:35 Range/Units Sodium Level 150 H 136-145 mmol/L Whole Blood Glucose 154 H 70-110 MG/DL Potassium Level 3.9 3.5-5.1 mmol/L Chloride Level 116 H 101-111 mmol/L Carbon Dioxide Level 33 H 21-32 mmol/L Blood Urea Nitrogen 57 H 7-18 mg/dL Creatinine 1.1 0.5-1.3 mg/dL Glomerular Filtration Rate Calc 67 >90 mL/min Random Glucose 118 #H 70-105 mg/dL Total Calcium 8.8 8.5-10.1 mg/dL Ammonia < 10 L 11-32 umol/L Magnesium Level 2.50 H 1.80-2.40 mg/dL Test 01/05/25 02:34 Range/Units Total Bilirubin 0.9 0.2-1.0 mg/dL Aspartate Amino Transf (AST/SGOT) 15 10-37 U/L Alanine Aminotransferase (ALT/SGPT) < 6 L 12-78 U/L Alkaline Phosphatase 52 50-136 U/L Total Protein 6.0 6.0-8.3 g/dL Albumin 2.3 L 3.5-5.0 g/dL DIAGNOSTICS / RADIOLOGY RESULTS: [ ] Signed PATIENT: OMAR HELM MR#: [id number] : 1940 SEX: M AGE: 84 LOCATION: [facility] ORDER 2300 STATUS: ADM IN REPORT#: [id number] SERVICE 0600 REASON: hypoxic resp failure ORDERING PHYSICIAN: ELLA DICKINSON PROCEDURE: CXR1VW - CHEST 1VW FRONTAL CHEST RADIOGRAPH INDICATION: hypoxic resp failure COMPARISON: 01/05/2025 FINDINGS/IMPRESSION: budget counselor leads overlie the field of view. Stable right PICC and NG tube. Stable heart size without pulmonary vascular congestion. Unchanged right lower lung opacities and minimal left lung base scarring and/or atelectasis, without pneumothorax. DICTATED BY: ADELSO ESCAMILLA MD DATE: 01/06/25 0854 ELECTRONICALLY SIGNED BY: ADELSO ESCAMILLA MD DATE: 01/06/25 09 PLAN Valium 2mg ivp q 8 hrs wean off Precedex Add Seroquel 12.5 b.i.d. MBSS to assess for aspiration once more stable Ng tube one to one sitter for safety bowel regimen- pending BM PT to eval and treat NEURO: Minimize central acting medications as possible. Fall Precautions. PULMONARY: - Acute hypoxic respiratory failure requiring intubation on 01/01/25 - Bilateral Multifocal bacterial pneumonia, POA suspected micro aspiration - Suspected aspiration pneumonia, POA Supplemental 02 as needed Titrate Fio2 to keep Spo2 > or = 90% Atrovent nebs and CPT as needed IS hourly while awake for pulmonary hygiene once extubated Out of bed to chair as tolerated once extubated CARDIOVASCULAR: -Suspected acute on chronic CHF, POA Cardiac monitoring Cardiac markers Follow hemodynamics. Titrate vasopressor to keep MAP >65 or systolic blood pressure >95mmHg Drips: If needed start Precedex p.r.n. agitation LINES: PIV PICC line to right upper extremity GI & NUTRITION: Continue nutritional support Aspirations precautions Prokinetic agents and laxatives as needed Tube feedings Dietary consult KIDNEYS & ELECTROLYTES: Strict monitoring of intake and output Daily weights Avoid nephrotoxic agents Monitor electrolytes and replace as needed Goal urine output of 30mL/hr or 0.5mL/kg/hr ENDOCRINE: Type 2 diabetes mellitus with hyperglycemia Maintain blood glucose between 100-180 at all times. Insulin sliding scale for blood glucose management Add Lantus Hemoglobin A1c 6.2 TSH WNL INFECTIOUS DISEASE: Septic shock, POA requiring pressors Lactic acidosis, POA, resolved Trend temperature. Milligan-culture if febrile. Micro: Blood cultures negative Respiratory cultures Gram-positive and Gram-negative rods + Klebsiella Influenza a and B negative Strep throat negative COVID-19 negative HIV negative Antibiotics: Zosyn HEMATOLOGY & COAGULATION: -Elevated D-dimer negative for PE positive for DVT Right popliteal thrombus POA Monitor H&H. Keep Hgb > 7 Transfuse 1 unit of PRBC for Hgb < 7 Transfuse 1 pack of platelets of platelets < 20, 000 Watch for any signs and symptoms of bleeding SKIN: Pressure ulcer prevention per facility protocol Rehab: PT/OT Prophylaxis: GI: Protonix DVT: Lovenox Code Status: Full Resuscitation Disposition: LTAC per primary Other: Critical care time This patient required multiple bedside visits to manage the patient, review blood gases, coordinate with respiratory, nurses,review radiology exams, talk to the family members and discuss advanced directives. I personally spent 45 minutes of critical care time in treatment of this patient. This includes patient management, time at bedside, time reviewing tests, labs, appropriate images and studies, documentation, and patient care coordination. This time excludes separately billable procedures. ATTESTATION BY PHYSICIAN I attest that I reviewed and discussed the case with the Physician Diffusion Furnace Operator as well as agree with the Physician Diffusion Furnace Operator's findings, plans of care, and documentation above. Enrico Bliss MD, [facility] Jan 06, 2025 11:07
--- NOTE | 2025-01-06 11:34 | NUR ---
Hold for today per nursing- pt is restless. PT team advised. Will attempt PT eval on 01/07/25
[2025-01-06 13:35] LABS: ABG BASE EXCESS -1.2 mmol/L (-2.0-3.0); ABG HCO3 21.5 mmol/L (21.0-28.0); ABG OXYGEN SATURATION 93.4 % (94.0-98.0); ABG PCO2 31 mmHg (35-48); ABG PH 7.462 (7.350-7.450); PO2, ARTERIAL BG 62.6 mmHg (83.0-108.0); VENT MODE, BG NC (ROOM AIR)
--- NOTE | 2025-01-06 14:22 | NUR ---
cm note spoke to Kaitlynn at [facility] states were able to provide tour to spouse and did receive referral, and looks good. will continue to followup amina castro pt.
[2025-01-06 16:03] LABS: POTASSIUM 3.3 mmol/L (3.5-5.1)
[2025-01-06] MEDS: queTIAPine fuMARate 25 MG TAB PO SCH (16:21)
[2025-01-06] MEDS: PoTASSium chloRIDE 20MEQ ER 20 MEQ ERTAB PO PRN (16:34)
--- NOTE | 2025-01-06 20:07 | PN ---
INFECTIOUS DISEASE FOLLOWUP NOTE DATE OF SERVICE: 01/06/2025 SUBJECTIVE: The patient is seen and examined at bedside. No fever, no chills. No nausea, no vomiting. The patient is awake, but sometimes fairly confused. Remained in the ICU. was updated at the bedside. No rashes or itchiness. Tolerating NG tube feeding. The patient remained on one-to-one observation. PHYSICAL EXAMINATION: VITAL SIGNS: Temperature 98.4. EYES: No icterus. Pupils are equal and reactive. HENT: No oral thrush seen. Moist oral mucosa. NECK: Supple. No JVD or thyromegaly. LUNGS: Good air entry. Crackles bilaterally. CARDIOVASCULAR: S1 and S2, regular. No murmur heard. ABDOMEN: Full, soft. Bowel sound is present. CENTRAL NERVOUS SYSTEM: Awake, alert, oriented x 3. No focal deficits. SKIN: No rashes. No itchiness. LYMPHATIC: No peripheral lymphadenopathy. BACK: No deformity. No pressure ulcer. HEMATOLOGIC: No bleeding or petechial lesions seen. ASSESSMENT: An 84-year-old male presented with fever and chills. Current problems include: * Septic shock. * Gram-negative pneumonia. * Hypoxia respiratory failure, status post intubation and extubation. * Encephalopathy. * Obesity. * Diabetes mellitus. * Left popliteal deep vein thrombosis. PLAN: * Continue anticoagulation. * Continue critical care support. * Continue pain management. * Continue NG tube feeding. * Continue Zosyn. * Continue antidiabetic. * Monitor electrolytes. * The patient will be followed up closely. TID: [id number] RECEIPT: [id number]
[2025-01-06] MEDS ORDERED: queTIAPine fuMARate 25 MG TAB PO SCH (21:00)
[2025-01-07] VITALS (47 sets, daily range): BP systolic 90–129; BP diastolic 45–75; PULSE 58–102; RESP 18–25; TEMP 97.1–99.3; O2SAT 94–100
[2025-01-07 05:45] LABS: BASOPHILS # (AUTO) 0.05 K/uL (0.00-0.20); BASOPHILS % (AUTO) 0.6 % (0.0-5.0); EOSINOPHILS # (AUTO) 0.15 K/uL (0.00-0.70); EOSINOPHILS % (AUTO) 1.9 % (0.0-8.0); HEMATOCRIT 49.1 % (42-54); IMMATURE GRANULOCYTE ABSOLUTE 0.14 K/uL (0-1); LYMPHOCYTES # (AUTO) 0.9 K/uL (1.0-4.8); LYMPHOCYTES % (AUTO) 11.5 % (21.0-51.0); MEAN CORPUSCULAR HEMOGLOBIN 32.1 pg (27.0-33.0); MEAN CORPUSCULAR HGB CONC 32.8 g/dL (32.0-36.0); MEAN CORPUSCULAR VOLUME 97.8 fL (79-99); MONOCYTES # (AUTO) 0.7 K/uL (0.1-1.0); MONOCYTES % (AUTO) 9.1 % (3.0-13.0); NEUTROPHILS # (AUTO) 5.8 K/uL (1.8-7.7); NEUTROPHILS % (AUTO) 75.1 % (40.0-77.0); PLATELET COUNT (AUTO) 108 K/uL (130-400); RED BLOOD CELL COUNT(AUTO) 5.02 MIL/uL (4.50-6.20); RED CELL DISTRIBUTION WIDTH 13.3 % (11.0-15.5); WHITE BLOOD COUNT (AUTO) 7.8 K/uL (4.8-10.8)
[2025-01-07 06:03] LABS: ALBUMIN 1.7 g/dL (3.5-5.0); ASPARTATE AMINOTRANSFERASE 23 U/L (10-37); CARBON DIOXIDE 28 mmol/L (21-32); CHLORIDE 114 mmol/L (101-111); GLOMERULAR FILTR. RATE CALC 75 mL/min (>90); GLUCOSE,RANDOM 184 mg/dL (70-105); POTASSIUM 4.2 mmol/L (3.5-5.1); SODIUM SERUM 149 mmol/L (136-145); TOTAL PROTEIN, SERUM 5.1 g/dL (6.0-8.3); UREA NITROGEN, BLOOD 47 mg/dL (7-18)
[2025-01-07 06:06] LABS: ALANINE AMINOTRANSFERASE < 6 U/L (12-78)
[2025-01-07 06:26] LABS: B-TYPE NATRIURETIC PEPTIDE 561 pg/mL (0-100)
[2025-01-07] MEDS: THIAMINE HCL 100 MG/ML 2ML VIAL IVP SCH (08:30)
--- NOTE | 2025-01-07 09:29 | PN ---
[facility] PROGRESS NOTE Date Patient Seen: Jan 07, 2025 Time of Visit: 09:29 Supervising Physician: Enrico Maya MD Primary Care Physician: Cielo Bledsoe MD Outpatient Specialists: none Inpatient Consults: Critical care BIS, PROBLEM LIST: Hypernatremia, resolving Acute metabolic encephalopathy, resolving Bilateral Multifocal bacterial pneumonia, +(Klebsiella Aerogenes and Klebsiella Oxytoca POA Acute hypoxemic respiratory failure POA status post extubation Suspected aspiration pneumonia, POA -Pending MBSS Acute on chronic HFpEF 60-65% POA Septic shock, POA requiring pressors, resolved suspected mitral bacterial endocarditis, (ruled out) per SMITA Lactic acidosis, POA Elevated D-dimer negative for PE positive for superficial popliteal thrombus Acute non-anion gap metabolic acidosis, POA Right popliteal Thrombus POA Cardiomegaly Parkinson's disease Victorino Parkinson's White syndrome Hyperglycemia in the presence of type 2 diabetes mellitus Pancreatitis, POA Hypomagnesemia INTERVAL HISTORY: Patient is awake alert and oriented to person and place, improvement in mental status. Continues with the NG tube feedings pending MBSS. currently on 2 L via nasal cannula saturating 95% hemodynamically stable and afebrile. He has has good urine output of 1.8 L in the last 24 hours. WBCs normalized H&H stable platelet count is 108 K. Neutrophils 75, improved. Sodium 149, potassium 4.2 chloride of 114 carbon dioxide 28 BUN 47 creatinine of 1.0 and GFR of 75. Chest x-ray with no pneumothorax noted right small pleural effusion. Post chest tube removal x-ray shows right chest tube removed no visible pneumothorax. Patient is now stable to downgrade to PCCU. Patient to continue with physical therapy PT evaluation pending MBS S due to aspiration pneumonia. REVIEW OF SYSTEMS: Unable to perform due to patient's intubated and sedated. PHYSICAL EXAM: GENERAL: Patient is awake alert and oriented to name and place. GCS of 14. Follows commands common cooperative. HEENT: Sclerae nonicteric, moist mucosa. NECK: Supple, no JVD, trachea midline LUNGS: Clear breath sounds bilaterally. No wheezes HEART: Regular rate and rhythm. Normal S1 and S2, without murmurs ABD: Abdomen soft nontender, normal bowel sounds. EXT: No pitting edema. NEURO: Awake follows commands and no focal deficits, Hx of Parkinson. Vital Signs (last 8hr) Date Time Temp Pulse Resp B/P (MAP) Pulse Ox O2 Delivery O2 Flow Rate FiO2 01/07/25 08:00 66 23 99/45 (63) 98 01/07/25 07:45 59 20 104/51 (68) 99 01/07/25 07:30 98.1 63 22 107/57 (74) 98 01/07/25 07:15 64 21 96/51 (66) 100 01/07/25 07:00 65 21 93/48 (63) 100 01/07/25 06:56 59 18 N/Cannula Low lpm 3.0 32 01/07/25 06:53 66 24 01/07/25 06:45 67 20 99/52 (68) 100 01/07/25 06:30 58 23 97/60 (72) 99 01/07/25 06:15 64 20 96/52 (67) 99 01/07/25 06:00 61 21 97/46 (63) 99 01/07/25 05:45 66 25 103/56 (72) 99 01/07/25 05:30 62 25 103/55 (71) 99 01/07/25 05:15 62 19 97/52 (67) 100 01/07/25 05:00 67 19 93/57 (69) 100 01/07/25 04:45 61 20 98/56 (70) 100 01/07/25 04:30 69 21 111/65 (80) 99 01/07/25 04:15 70 20 109/62 (78) 100 01/07/25 04:00 97.2 Nasal Cannula 3.0 01/07/25 04:00 69 21 105/57 (73) 99 01/07/25 03:45 74 24 111/75 (87) 99 01/07/25 03:30 67 21 90/58 (69) 100 01/07/25 03:15 66 25 101/58 (72) 99 01/07/25 03:00 68 22 104/57 (73) 100 01/07/25 02:45 68 22 103/57 (72) 100 01/07/25 02:30 61 21 99/55 (70) 100 01/07/25 02:15 64 22 98/55 (69) 99 01/07/25 02:00 66 22 95/57 (70) 100 01/07/25 01:45 65 21 105/55 (72) 100 01/07/25 01:30 62 20 91/52 (65) 100 LABS: Hematology Labs: Test 01/07/25 04:55 Range/Units White Blood Count 7.8 4.8-10.8 K/uL Red Blood Count 5.02 4.50-6.20 MIL/uL Hemoglobin 16.1 14.0-18.0 g/dL Hematocrit 49.1 42-54 % Mean Corpuscular Volume 97.8 79-99 fL Mean Corpuscular Hemoglobin 32.1 27.0-33.0 pg Mean Corpuscular Hemoglobin Concent 32.8 32.0-36.0 g/dL Red Cell Distribution Width 13.3 11.0-15.5 % Platelet Count 108 L 130-400 K/uL Mean Platelet Volume 11.5 H 7.5-10.5 fL Immature Granulocyte % (Auto) 1.8 H 0-1 % Neutrophils (%) (Auto) 75.1 40.0-77.0 % Lymphocytes (%) (Auto) 11.5 L 21.0-51.0 % Monocytes (%) (Auto) 9.1 3.0-13.0 % Eosinophils (%) (Auto) 1.9 0.0-8.0 % Basophils (%) (Auto) 0.6 0.0-5.0 % Neutrophils # (Auto) 5.8 1.8-7.7 K/uL Lymphocytes # (Auto) 0.9 L 1.0-4.8 K/uL Monocytes # (Auto) 0.7 0.1-1.0 K/uL Eosinophils # (Auto) 0.15 0.00-0.70 K/uL Basophils # (Auto) 0.05 0.00-0.20 K/uL Absolute Immature Granulocyte (auto 0.14 0-1 K/uL Nucleated Red Blood Cells 0.0 0.0-0.19 % Chemistry Labs: Test 01/07/25 08:39 01/07/25 04:55 01/07/25 04:45 01/06/25 03:15 Range/Units Sodium Level 147 H 136-145 mmol/L Potassium Level 4.2 3.5-5.1 mmol/L Chloride Level 114 H 101-111 mmol/L Carbon Dioxide Level 28 21-32 mmol/L Blood Urea Nitrogen 47 H 7-18 mg/dL Creatinine 1.0 0.5-1.3 mg/dL Glomerular Filtration Rate Calc 75 >90 mL/min Random Glucose 184 H 70-105 mg/dL Total Calcium 8.4 L 8.5-10.1 mg/dL Magnesium Level 2.10 1.80-2.40 mg/dL Total Bilirubin 1.0 0.2-1.0 mg/dL Aspartate Amino Transf (AST/SGOT) 23 10-37 U/L Alanine Aminotransferase (ALT/SGPT) < 6 L 12-78 U/L Alkaline Phosphatase 47 L 50-136 U/L B-Type Natriuretic Peptide 561 H 0-100 pg/mL Total Protein 5.1 L 6.0-8.3 g/dL Albumin 1.7 L 3.5-5.0 g/dL Procalcitonin 7.70 H 0.05-0.5 ng/mL Whole Blood Glucose 194 H 70-110 MG/DL Ammonia < 10 L 11-32 umol/L DIAGNOSTICS / RADIOLOGY RESULTS: [ ]IMAGING REPORT Signed PATIENT: OMAR HELM MR#: [id number] : 1940 SEX: M AGE: 84 LOCATION: 2DH ORDER 1423 STATUS: ADM IN REPORT#: [id number] SERVICE 1630 REASON: post chest removal ORDERING PHYSICIAN: ELLA DICKINSON PROCEDURE: CXR1VW - CHEST 1VW INDICATION: post chest removal TECHNIQUE: CHEST 1VW COMPARISON: 01/07/2025 FINDINGS AND IMPRESSION: Right chest tube was removed. There is no visible thorax. The remainder of the study is stable. Mild degenerative changes of the spine. The visualized upper abdomen appears unremarkable. DICTATED BY: SIXTO FOUNTAIN MD DATE: 01/07/251914 ELECTRONICALLY SIGNED BY: SIXTO FOUNTAIN MD DATE: 01/07/251932 PLAN Downgrade to PCCU Valium 2mg ivp q 4hrs prn Add Seroquel 12.5 b.i.d. MBSS to assess for aspiration once more stable Ng tube one to one sitter for safety bowel regimen- pending BM Continue physical therapy Case management for LTAC placement NEURO: Minimize central acting medications as possible. Fall Precautions. PULMONARY: - Acute hypoxic respiratory failure requiring intubation on 01/01/25 - Bilateral Multifocal bacterial pneumonia, POA suspected micro aspiration - Suspected aspiration pneumonia, POA Supplemental 02 as needed Titrate Fio2 to keep Spo2 > or = 90% Atrovent nebs and CPT as needed IS hourly while awake for pulmonary hygiene once extubated Out of bed to chair as tolerated once extubated CARDIOVASCULAR: -Suspected acute on chronic CHF, POA Cardiac monitoring Cardiac markers Follow hemodynamics. Titrate vasopressor to keep MAP >65 or systolic blood pressure >95mmHg Drips: If needed start Precedex p.r.n. agitation LINES: PIV PICC line to right upper extremity GI & NUTRITION: Continue nutritional support Aspirations precautions Prokinetic agents and laxatives as needed Tube feedings Dietary consult KIDNEYS & ELECTROLYTES: Strict monitoring of intake and output Daily weights Avoid nephrotoxic agents Monitor electrolytes and replace as needed Goal urine output of 30mL/hr or 0.5mL/kg/hr ENDOCRINE: Type 2 diabetes mellitus with hyperglycemia Maintain blood glucose between 100-180 at all times. Insulin sliding scale for blood glucose management Add Lantus Hemoglobin A1c 6.2 TSH WNL INFECTIOUS DISEASE: Septic shock, POA requiring pressors Lactic acidosis, POA, resolved Trend temperature. Milligan-culture if febrile. Micro: Blood cultures negative Respiratory cultures Gram-positive and Gram-negative rods + Klebsiella Influenza a and B negative Strep throat negative COVID-19 negative HIV negative Antibiotics: Zosyn HEMATOLOGY & COAGULATION: -Elevated D-dimer negative for PE positive for DVT Right popliteal thrombus POA Monitor H&H. Keep Hgb > 7 Transfuse 1 unit of PRBC for Hgb < 7 Transfuse 1 pack of platelets of platelets < 20, 000 Watch for any signs and symptoms of bleeding SKIN: Pressure ulcer prevention per facility protocol Rehab: PT/OT Prophylaxis: GI: Protonix DVT: Lovenox Code Status: Full Resuscitation Disposition: LTAC per primary Other: Critical care time 35 minutes. ATTESTATION BY PHYSICIAN I attest that I reviewed and discussed the case with the Physician Circle Cutting Saw Operator as well as agree with the Physician Circle Cutting Saw Operator's findings, plans of care, and documentation above. Enrico Bliss MD, [facility] [facility] Jan 07, 2025 09:29
[2025-01-07] MEDS ORDERED: diazePAM 5 MG/ML 2 ML SYG IV PRN (09:30)
--- NOTE | 2025-01-07 10:42 | HMCIMG ---
FRONTAL CHEST RADIOGRAPH INDICATION: CT placement COMPARISON: None FINDINGS/IMPRESSION: automatic profile shaper operator leads overlie the field of view. Stable right PICC an NG tube. Stable heart size without pulmonary vascular congestion, and unchanged small right pleural effusion with subjacent passive atelectasis or other airspace process, without evidence for pneumothorax. Tip of right chest drainage catheter abuts the right hilum.
--- NOTE | 2025-01-07 14:10 | NUR ---
cm note this cm spoke to pt's and states was able to tour [facility]. discussed dc planning with Dr Jones, states pt not be ready to go to [facility] today, will re evaluate tomorrow, could possibly be ready tomorrow. updated Duyen rep with [facility], will continue to follow pt.
--- NOTE | 2025-01-07 14:12 | NUR ---
Chest tube to right lung removed per Sil Wiseman NP. Patient positioned in semi-Ghosh's. Instructed to perform Valsava Maneuver during removal. Tube removed in one smooth motion. Petroleum gauzed and 4x4 applied immediately. No drainage noted at site, no active bleeding. Suture removed during removal. Patient tolerated procedure without difficulty. Respirations even and unlabored. Lung sounds diminished bilaterally, no signs of respiratory distress. O2 sat remained stable at 96% on 2 L NC. instructed to monitor for signs of respiratory distress, increased pain, drainage, and to notify staff immediately if any symptoms occur. notified of removal.
--- NOTE | 2025-01-07 15:10 | NUR ---
report given to HARDEEP Turner.All questions answered
--- NOTE | 2025-01-07 15:30 | NUR ---
BEDSIDE SWALLOW EVAL COMPLETED. + s/s of aspiration. Recommend ST services 1-3x weekly and MBSS to rule out aspiration. Patient recommended to consume pureed solid and moderately thick liquids. COMPENSATORY STRATEGIES 1. Sit upright for all meals 2. slow oral intake 3. Alt liquids and solids 4. Multiple swallows 5. Remain seated upright 90 degrees for 30 min. post meals. GAUGE AND WEIGH MACHINE OPERATOR reviewed results and recommendations with patient, , and nurse Carmen. GAUGE AND WEIGH MACHINE OPERATOR educated patient on risk and consequences of aspiration. Speech therapy warranted at this time to address dysphagia. All questions answered. RECOMMENDATIONS: Dysphagia therapy 1-3x week to improve pharyngeal swallow: LTG#1: Pt will tolerate least restrictive diet to meet nutrition/hydration with no s/s of aspiration. LTG#2: Skilled education Pt/family/staff STG#1: Pt will participate in laryngeal elevation/excursion exercises with 90% accuracy. STG#2: Pt will participate in tongue based retraction exercises with 90% accuracy with min asst. STG#3: Pt will participate in oral motor exercises with 90% accuracy with min asst. STG#4 Pt will tolerate PO trials with GAUGE AND WEIGH MACHINE OPERATOR only with no overt s/s of aspiration. STG#5: Skilled education with pt/family/staff Addendum: 01/07/25 at [address] Amended: Links added.
--- NOTE | 2025-01-07 19:33 | HMCIMG ---
INDICATION: post chest removal TECHNIQUE: CHEST 1VW COMPARISON: 01/07/2025 FINDINGS AND IMPRESSION: Right chest tube was removed. There is no visible thorax. The remainder of the study is stable. Mild degenerative changes of the spine. The visualized upper abdomen appears unremarkable.
--- NOTE | 2025-01-07 21:59 | PN ---
INFECTIOUS DISEASE FOLLOWUP NOTE DATE OF SERVICE: 01/07/2025 SUBJECTIVE: Elderly male was seen today. No fever or chills. The patient is off Precedex and vasopressor, fully awake and alert, . She also has chest tube on the right side. No palpitations or orthopnea. No nausea or vomiting. No headache or dizziness. was present at the bedside. PHYSICAL EXAMINATION: VITAL SIGNS: Temperature 97.7. EYES: No icterus. Pupils are equal and reactive. HENT: No oral thrush seen. Moist oral mucosa. NECK: Supple. No JVD or thyromegaly. LUNGS: Good air entry. No rales, no rhonchi. CARDIOVASCULAR: S1 and S2 regular. No murmur heard. ABDOMEN: Full, soft and nontender. Bowel sound is present. CENTRAL NERVOUS SYSTEM: Awake, alert, oriented x 3. SKIN: No rashes, no itchiness. LYMPHATIC: No peripheral lymphadenopathy. BACK: No deformity. No pressure ulcer. MUSCULOSKELETAL: No joint swelling, erythema or tenderness. GENITOURINARY: Granger catheter in place. No hematuria. ASSESSMENT: An 84-year-old male admitted with fever and chills. Current problems include: * Septic shock. * Pneumonia. * Hypoxic respiratory failure, status post intubation and extubation. * Encephalopathy. * Obesity. * Diabetes mellitus. * Right popliteal vein DVT. * status post chest tube placement. PLAN: * . * Continue Zosyn. * Continue critical care support. * Continue NG tube feeding. * Continue pain management. * Continue GI prophylaxis. * Monitor electrolytes. * The patient will be followed up closely. TID: [id number] RECEIPT: [id number]
[2025-01-08] VITALS (16 sets, daily range): BP systolic 112–135; BP diastolic 53–70; PULSE 86–110; RESP 18–20; TEMP 97.7–100.1; O2SAT 92–94
[2025-01-08 04:25] LABS: BASOPHILS # (AUTO) 0.12 K/uL (0.00-0.20); EOSINOPHILS % (AUTO) 0.8 % (0.0-8.0); HEMATOCRIT 49.1 % (42-54); IMMATURE GRANULOCYTE ABSOLUTE 0.57 K/uL (0-1); LYMPHOCYTES # (AUTO) 1.3 K/uL (1.0-4.8); LYMPHOCYTES % (AUTO) 10.6 % (21.0-51.0); MEAN CORPUSCULAR HEMOGLOBIN 31.3 pg (27.0-33.0); MONOCYTES % (AUTO) 7.7 % (3.0-13.0); NEUTROPHILS # (AUTO) 9.5 K/uL (1.8-7.7); NEUTROPHILS % (AUTO) 75.4 % (40.0-77.0); NUCLEATED RED BLOOD CELLS 0.2 % (0.0-0.19); PLATELET COUNT (AUTO) 124 K/uL (130-400); RED BLOOD CELL COUNT(AUTO) 5.17 MIL/uL (4.50-6.20); RED CELL DISTRIBUTION WIDTH 13.2 % (11.0-15.5); WHITE BLOOD COUNT (AUTO) 12.6 K/uL (4.8-10.8)
[2025-01-08 04:45] LABS: ALBUMIN 1.8 g/dL (3.5-5.0); BILIRUBIN,TOTAL 1.3 mg/dL (0.2-1.0); CREATININE 1.3 mg/dL (0.5-1.3); POTASSIUM 3.5 mmol/L (3.5-5.1); TOTAL PROTEIN, SERUM 5.2 g/dL (6.0-8.3)
--- NOTE | 2025-01-08 12:59 | HMCIMG ---
CHEST 1VW HISTORY: Respiratory failure COMPARISON: 01/07/2025 FINDINGS: A frontal projection of the chest was obtained. There are bilateral pulmonary infiltrates suggestive of pulmonary vascular congestion with possible superimposed pneumonitis. The heart is borderline enlarged. All the lines and tubes are again seen in place. Attic calcifications are seen. IMPRESSION: 1. Bilateral pulmonary infiltrates are seen suggestive of pulmonary vascular congestion with possible superimposed pneumonitis. Mild interval worsening is seen.
--- NOTE | 2025-01-08 13:30 | NUR ---
TRANSFER-RADIOLOGY PATIENT TAKEN TO RADIOLOGY BY VENEER MARKER, FOR MBSS.
--- NOTE | 2025-01-08 13:45 | NUR ---
MBSS COMPLETED. Deep non-transient penetrations after the swallow leading to SILENT trace aspirations. Recommend NPO, [facility] alternate means of nutrition/hydration. ELECTRODYNAMICIST reviewed results and recommendations with patient and nurse Carmen. ELECTRODYNAMICIST educated patient on risks and consequences of aspiration. Speech therapy warranted at this time to address oropharyngeal dysphagia. All questions answered. DIAGNOSTIC FINDINGS: Pt presented with severe oropharyngeal dysphagia characterized by decreased oral motor strength, ROM, and coordination; decreased tongue base retraction; decreased hyo-laryngeal elevation/excursion; delayed pharyngeal response trigger; and decreased sensation evidenced by decreased bolus formation and manipulation; decreased A-P bolus propulsion; tongue pumping; delayed swallows; premature spillage to valleculae; residue on base of tongue, valleculae, pyriform sinuses and posterior pharyngeal wall unable to completely clear with extra dry swallows; resulting in deep non-transient penetrations after the swallow with thin liquids via tsp (3cc) and extremely thick liquids leading to SILENT trace aspirations. Exam terminated at this time. Pt completed brief exam sitting in a stoop position with 3LO2 via NC. RECOMMENDATIONS: Dysphagia Therapy 1-3X week to increase oral motor strength and pharyngeal swallow: LTG#1: Pt will tolerate least restrictive diet to meet nutrition/hydration with no s/s of aspiration. LTG#2: Skilled education Pt/family/staff STG#1: Pt will participate in laryngeal elevation/excursion exercises with 70% accuracy and Mod A. STG#2: Pt will participate in tongue base retraction exercises with 70% acc/with Mod A. STG#3: Pt will participate in oral motor exercises with 70% acc/with Mod A. STG#4: Pt will demonstrate a swallow delay of only -2 seconds following thermal tactile stimulation with 90% accuracy with Min A. STG#5: Skilled education Pt/family/staff. Addendum: 01/08/[address] SARAH RUFFIN Amended: Links added.
--- NOTE | 2025-01-08 14:15 | NUR ---
[place] [facility] [place]
--- NOTE | 2025-01-08 15:06 | HMCIMG ---
MODIFIED BARIUM SWALLOW W CINE REASON: DYSPHAGIA, ASPIRATION RISK. COMPARISON: None TECHNIQUE: Modified barium swallow study was performed. FINDINGS: Please see procedure report for by referring speech therapist. IMPRESSION: Modified barium swallow study.
--- NOTE | 2025-01-08 15:40 | NUR ---
DR. JUNITO WILD MAKING ROUNDS. MBSS RESULTS GIVEN TO DR. WILD. ORDERS TO PLACE NG TUBE RECEIVED. CXR AFTR NG TUBE PLACEMENT AND TO RESTART VITAL AF 1.5 TO GOAL OF 30ML/HR RECEIVED. DISCHARGE ORDERS RECEIVED TO TRANSFER TO [facility].
[2025-01-08] MEDS: BisaCODYL 10 MG SUPP.RECT RC ONE (16:57)
--- NOTE | 2025-01-08 17:15 | NUR ---
NG TUBE A 14 FR NG TUBE WAS PLACED TO RIGHT NARE. PLACEMENT VERIFIED WITH AIR BOLUS, BY 2 RNS. CHEST X-RAY ORDERED; WILL AWAIT RESULTS BEFORE STARTING TUBE FEEDING.
--- NOTE | 2025-01-08 17:47 | HMCIMG ---
ABDOMEN SINGLE VIEW INDICATION: Feeding tube placement COMPARISON: None FINDINGS/IMPRESSION: Supine view only Tip of NG tube within the stomach.
--- NOTE | 2025-01-08 18:13 | NUR ---
DISCHARGE Report to HARDEEP Miller. Patient is to be discharge and transferred via EMS.
[2025-01-08] MEDS: acetaMINOPHEN 325 MG TAB PO PRN (20:42)
--- NOTE | 2025-01-08 21:00 | PN ---
[facility] PROGRESS NOTE Date Patient Seen: Jan 08, 2025 Time of Visit: 20:51 Supervising Physician: Enrico Maya MD Primary Care Physician: Cielo Bledsoe MD Outpatient Specialists: none Inpatient Consults: Critical care BIS, PROBLEM LIST: Bilateral Multifocal bacterial pneumonia, +(Klebsiella Aerogenes and Klebsiella Oxytoca POA Acute hypoxemic respiratory failure POA status post extubation Suspected aspiration pneumonia, POA -Pending MBSS Acute on chronic HFpEF 60-65% POA Septic shock, POA requiring pressors, resolved suspected mitral bacterial endocarditis, (ruled out) per [facility] Lactic acidosis, POA Elevated D-dimer negative for PE positive for superficial popliteal thrombus Acute non-anion gap metabolic acidosis, POA Right popliteal Thrombus POA Cardiomegaly Parkinson's disease Victorino Parkinson's White syndrome Hyperglycemia in the presence of type 2 diabetes mellitus Pancreatitis, POA Hypomagnesemia INTERVAL HISTORY: Patient is awake alert and oriented to person and place. No major overnight event, sitting up on recliner chair . pt complains of constipation. He is pending MBSS. will follow further recs. White count is 12.6. Cr 1.3 GFR of 55 sodium of 146. He is pending [facility] placement. Update pt's on current findings and answered all her questions REVIEW OF SYSTEMS: .Const: [No fever, fatigue, or weight changes] Eyes:[ no recent vision problems] ENT: [No congestion, ear pain, or sore throat] C/V: [no chest pain, palpitations or edema] Resp: [No cough, congestion, wheezing , or Shortness of breath] GI: [Yes for constipation. : [No incontinence of or dyuria] M/S: [No joint or pain swelling] Skin: [No rash] Neuro: [no headache, focal numbness, or weakness, dizziness or seizures] Psych: [no depression or anxiety] Heme: [no abnormal bruising or bleeding] Lymph: [no swollen glands] additional info: ROS unable to obtain due to: PHYSICAL EXAM: GENERAL: Patient is awake alert and oriented to name and place. GCS of 14. Follows commands common cooperative. HEENT: Sclerae nonicteric, moist mucosa. NECK: Supple, no JVD, trachea midline LUNGS: Clear breath sounds bilaterally. No wheezes HEART: Regular rate and rhythm. Normal S1 and S2, without murmurs ABD: Abdomen soft nontender, normal bowel sounds. EXT: No pitting edema. NEURO: Awake follows commands and no focal deficits, Hx of Parkinson. Vital Signs (last 8hr) Date Time Temp Pulse Resp B/P (MAP) Pulse Ox O2 Delivery O2 Flow Rate FiO2 01/08/25 19:45 99.0 105 20 135/67 91 Nasal Cannula 3.0 01/08/25 19:16 106 20 N/Cannula Low lpm 3.0 32 01/08/25 16:32 98.1 107 18 128/69 92 Nasal Cannula 3.0 01/08/25 15:13 86 20 N/Cannula Low lpm 3.0 01/08/25 15:12 86 20 01/08/25 14:15 100.0 110 18 129/57 91 Nasal Cannula 3.0 LABS: Hematology Labs: Test 01/08/25 04:13 Range/Units White Blood Count 12.6 #H 4.8-10.8 K/uL Red Blood Count 5.17 4.50-6.20 MIL/uL Hemoglobin 16.2 14.0-18.0 g/dL Hematocrit 49.1 42-54 % Mean Corpuscular Volume 95.0 79-99 fL Mean Corpuscular Hemoglobin 31.3 27.0-33.0 pg Mean Corpuscular Hemoglobin Concent 33.0 32.0-36.0 g/dL Red Cell Distribution Width 13.2 11.0-15.5 % Platelet Count 124 L 130-400 K/uL Mean Platelet Volume 11.1 H 7.5-10.5 fL Immature Granulocyte % (Auto) 4.5 H 0-1 % Neutrophils (%) (Auto) 75.4 40.0-77.0 % Lymphocytes (%) (Auto) 10.6 L 21.0-51.0 % Monocytes (%) (Auto) 7.7 3.0-13.0 % Eosinophils (%) (Auto) 0.8 0.0-8.0 % Basophils (%) (Auto) 1.0 0.0-5.0 % Neutrophils # (Auto) 9.5 H 1.8-7.7 K/uL Lymphocytes # (Auto) 1.3 1.0-4.8 K/uL Monocytes # (Auto) 1.0 0.1-1.0 K/uL Eosinophils # (Auto) 0.10 0.00-0.70 K/uL Basophils # (Auto) 0.12 0.00-0.20 K/uL Absolute Immature Granulocyte (auto 0.57 0-1 K/uL Nucleated Red Blood Cells 0.2 H 0.0-0.19 % Chemistry Labs: Test 01/08/25 20:15 01/08/25 04:13 01/07/25 04:55 Range/Units Whole Blood Glucose 124 H 70-110 MG/DL Sodium Level 146 H 136-145 mmol/L Potassium Level 3.5 3.5-5.1 mmol/L Chloride Level 110 101-111 mmol/L Carbon Dioxide Level 29 21-32 mmol/L Blood Urea Nitrogen 39 H 7-18 mg/dL Creatinine 1.3 0.5-1.3 mg/dL Glomerular Filtration Rate Calc 55 >90 mL/min Random Glucose 102 70-105 mg/dL Total Calcium 8.5 8.5-10.1 mg/dL Magnesium Level 2.00 1.80-2.40 mg/dL Total Bilirubin 1.3 #H 0.2-1.0 mg/dL Aspartate Amino Transf (AST/SGOT) 20 10-37 U/L Alanine Aminotransferase (ALT/SGPT) 9 L 12-78 U/L Alkaline Phosphatase 50 50-136 U/L Total Protein 5.2 L 6.0-8.3 g/dL Albumin 1.8 L 3.5-5.0 g/dL Procalcitonin 4.51 H 0.05-0.5 ng/mL B-Type Natriuretic Peptide 561 H 0-100 pg/mL DIAGNOSTICS / RADIOLOGY RESULTS: [ ] Signed PATIENT: OMAR HELM MR#: [id number] : 1940 SEX: M AGE: 84 LOCATION: 2DH ORDER 23 STATUS: ADM IN REPORT#: [id number] SERVICE 22 REASON: VERIFY NG TUBE PLACEMENT ORDERING PHYSICIAN: VIKAS WILD MD PROCEDURE: CXR1VW - CHEST 1VW ABDOMEN SINGLE VIEW INDICATION: Feeding tube placement COMPARISON: None FINDINGS/IMPRESSION: Supine view only Tip of NG tube within the stomach. DICTATED BY: ADELSO ESCAMILLA MD DATE: 01/08/251743 ELECTRONICALLY SIGNED BY: ADELSO ESCAMILLA MD DATE: 01/08/251746 PLAN pending MBSS continue IV abx for aspiration pneumonia NPO continue IS Bowel regimen [facility] to [facility] per primary NEURO: Minimize central acting medications as possible. Maintain fall precautions, adequate lighting during the day PULMONARY: Supplemental 02 as needed. Maintain aspiration precautions at all times CARDIOVASCULAR: Follow hemodynamics. Vital signs per facility protocol GI & NUTRITION: Continue with nutritional support. Continue stool softeners and laxatives as needed. KIDNEYS & ELECTROLYTES: Strict monitoring of intake, output and overall fluid balance. Avoid nephrotoxic medications to the extent possible. Medications to be dosed according to renal function. Monitor electrolytes and replace as needed ENDOCRINE: Maintain blood glucose between 100-180 at all times. Hypoglycemia protocol in place INFECTIOUS DISEASE: Trend temperature, WBC and procalcitonin level Follow cultures, deescalate antibiotics as soon as possible. Panculture if new onset fever ONCOLOGY/HEMATOLOGY/COAGULATION: Monitor for s/s of bleeding Monitor hemoglobin, coagulation studies as needed SKIN: Pressure ulcer prevention per facility protocol Specialty mattress ORTHO/REHAB: Continue PT/OT Prophylaxis: Continue GI and DVT prophylaxis Code Status: Full Resuscitation Disposition: TBD Other: Total patient care time exceeds 35 minutes excluding all procedures. ATTESTATION BY PHYSICIAN I attest that I reviewed and discussed the case with the Physician Firm Administrator as well as agree with the Physician Firm Administrator's findings, plans of care, and documentation above. Enrico Bliss MD, NELLY J ARNP Jan 08, 2025 21:00
[2025-01-09] VITALS (7 sets, daily range): BP systolic 135–141; BP diastolic 66–81; PULSE 90–104; RESP 16–20; TEMP 98.2–98.4; O2SAT 92–94
--- NOTE | 2025-01-09 01:00 | NUR ---
@2300pm 01/08/25 PER BIOLOGICAL TECHNICAL OFFICER TECH HEART RATE FROM AFIB 100 TO 113 FLUCTUATING IN THIS RANGE. REVIEWED HEART RATE DURING THE DAY AND PATIENT WAS IS AFIB [address] WILD. STATED TO CANCEL DISCHARGE FOR TONIGHT AND CONSULT CARDIOLOGY IN AM. NOTIFIED MD THAT PATIENT WAS ALREADY BEEN SEEN BY CARDIOLOGY DURING THIS ADMISSION. ASKED IF [facility] TO CALL NOW AND REPORT TO CARDIOLOGY STATED [facility].
--- NOTE | 2025-01-09 01:10 | NUR ---
@2330PM 01/09/25 SPOKE TO WITH BUFFING AND SUEDING MACHINE OPERATOR TRICK RODEO RIDER Ana [place] FOR [facility]. NOTIFIED. STATED THAT CARDIOLOGY WILL ROUND IN AM AND SEE PATIENT. STATED NO NEED FOR IV OR P.O. MEDICATIONS AT THIS TIME. STATED IN AM TRICK RODEO RIDER WILL ROUND AND REVIEW PATIENT CHART IN AM. PATIENT NOT ON ANY BETABLOCKERS OR DYSRTHMIA MEDICATIONS.
--- NOTE | 2025-01-09 01:14 | NUR ---
@2030PM 01/08/25 INITIATED NG TUBE FEEDINGS PER ORDERS AT [facility]ITAL @ 15ML/HR. Addendum: 01/09/25 at 0116 by ARNIE RIVERA RN RN CLARIFICATION STARTED AT 10ML/HR.
[2025-01-09 03:50] LABS: BASOPHILS % (AUTO) 0.8 % (0.0-5.0); EOSINOPHILS # (AUTO) 0.11 K/uL (0.00-0.70); EOSINOPHILS % (AUTO) 0.9 % (0.0-8.0); HEMATOCRIT 44.8 % (42-54); IMMATURE GRANULOCYTE ABSOLUTE 0.53 K/uL (0-1); LYMPHOCYTES # (AUTO) 0.9 K/uL (1.0-4.8); LYMPHOCYTES % (AUTO) 7.4 % (21.0-51.0); MEAN CORPUSCULAR HEMOGLOBIN 31.4 pg (27.0-33.0); MEAN CORPUSCULAR HGB CONC 31.9 g/dL (32.0-36.0); MEAN CORPUSCULAR VOLUME 98.5 fL (79-99); MONOCYTES # (AUTO) 0.7 K/uL (0.1-1.0); MONOCYTES % (AUTO) 5.3 % (3.0-13.0); NEUTROPHILS # (AUTO) 10.4 K/uL (1.8-7.7); NEUTROPHILS % (AUTO) 81.4 % (40.0-77.0); PLATELET COUNT (AUTO) 115 K/uL (130-400); RED BLOOD CELL COUNT(AUTO) 4.55 MIL/uL (4.50-6.20); RED CELL DISTRIBUTION WIDTH 13.2 % (11.0-15.5); WHITE BLOOD COUNT (AUTO) 12.7 K/uL (4.8-10.8)
[2025-01-09 04:08] LABS: ALBUMIN 1.7 g/dL (3.5-5.0); BILIRUBIN,TOTAL 1.4 mg/dL (0.2-1.0); CREATININE 1.2 mg/dL (0.5-1.3); MAGNESIUM 2.1 mg/dL (1.80-2.40); POTASSIUM 3.6 mmol/L (3.5-5.1); TOTAL PROTEIN, SERUM 4.9 g/dL (6.0-8.3)
--- NOTE | 2025-01-09 04:45 | DS ---
DATE OF DISCHARGE: 01/08/2025 PRESENTING COMPLAINT: Fever, chills, shortness of breath and cough. HOSPITAL COURSE: An 84-year-old male with history of hypertension, diabetes mellitus and obesity, who presented to the hospital with the above complaint. The patient was found with septic shock, pneumonia and respiratory failure. The patient was admitted to ICU, intubated. The patient was found with pleural effusion, underwent chest tube placement on the right side. The patient has been successfully extubated. Sputum culture grew multiple gram negative rods. The patient's antibiotic has been deescalated to Zosyn. The patient has failed swallowing study. The patient remained debilitated, still on antibiotic. The patient has been approved for LTAC placement. FINAL DISCHARGE DIAGNOSES: * Septic shock. * Multifocal pneumonia. * Hypoxic respiratory failure, status post intubation and extubation. * Encephalopathy, resolved. * Diabetes mellitus. * Hypertension. * Oropharyngeal dysphagia with obesity. PLAN: * The patient to be discharged back home. * Continue pain management. * Continue NG tube feeding. * Continue Zosyn. * Continue antihypertensive. * Continue antidiabetic. * Monitor electrolytes. TID: [id number] RECEIPT: [id number]
--- NOTE | 2025-01-09 08:20 | NUR ---
This am dr. south curry. gave orders for ekg, metoprolol xl 50mg daily, elequis 5mg bid, stop lovenox sq, digoxin 0.5mg iv x1, metoprolol 5mg iv [id number] x3. May give if heart rate greater than 100, and if systolic bp greater than 100.
[2025-01-09] MEDS: DIGOxin 250 MCG/ML 2ML AMP IV ONE (08:30)
[2025-01-09] MEDS ORDERED: metoPROLOL tartRATE 1 MG/ML 5ML VIAL IV PRN (08:30)
--- NOTE | 2025-01-09 08:54 | EKG ---
[facility] Test Date: 2025-01-09 Test Time: 08:13:38 Pat Name: OMAR STEELE Department: [facility] Room: 225 1 Gender: M Rag Boiler: EDWIN : 1940 Requested By: JEANMARIE VIRAMONTES Order Number: [id number] Reading MD: Jeanmarie Viramontes Measurements Intervals [place] Rate: 98 P: 0 NC: 0 QRS: -5 QRSD: 81 T: 162 QT: 348 QTc: 444 Interpretive Statements Atrial fibrillation Ventricular premature complex Inferior infarct, old Nonspecific T abnormalities, lateral leads Electronically Signed On 01-09-2025 13:40:23 CDT by Jeanmarie Viramontes Please click the below link to view image of tracing.
--- NOTE | 2025-01-09 10:47 | CONS ---
Cardiac Consult Note CONSULT NOTE DATE OF SERVICE: Jan 01, 2025 at 22:58 REFERRING PROVIDER: LEANDRO MAYFIELD MD REASON FOR CONSULT: Atrial fibrillation with rapid ventricular response HPI: 84-year-old gentleman who has been to my clinic approximately 4 years ago who was admitted with bilateral pneumonia and there was concerns for bacterial endocarditis secondary to an echocardiogram abnormality. A SMITA was done by Dr. Fernandes which did not show any evidence of endocarditis and comment on left atrial appendage and left atrium revealed spontaneous echo contrast but no evidence of thrombus. 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 Patient last saw us in 2020 workup was done in that setting and the patient does have a history of hypertension diabetes mellitus dyslipidemia and Parkinson's disease. The patient also has a history of osteoarthritis in his had undergone spinal canal surgery in the past as well as hip surgery in the past as well. When patient was admitted to the hospital he was in respiratory failure and was intubated and has since been undergoing treatment for his pneumonia and was going to be transferred to a nursing facility for prolonged IV antibiotics but it was noted by nursing staff that he was still in AFib with uncontrolled response and they have called us to make treatment decisions regarding this issue. Patient has never been on a blood thinner and he has never had sustained AFib in it seems he has been on AFib really for approximately more than 72 hours with Lovenox at only 40 mg subQ daily. He denies any chest pain pressure tightness. Denies any palpitations. Denies any prior treatments for his WPW or paroxysmal atrial fibrillation. ROS: No fever, headache, chest pain, abdominal pain, nausea, vomiting, or diarrhea. Past medical history social history review of systems is unremarkable. PHYSICAL EXAMINATION: GENERAL: No acute distress. Appears stated age HEENT: Normocephalic, atraumatic. CARDIAC: Positive S1 and S2 irregularly irregular . No murmurs. LUNGS: Clear to auscultation bilaterally. ABDOMEN: Bowel sounds present, soft, nontender. EXTREMITIES: No edema bilaterally. NEUROLOGIC: Cranial nerves 2-12 grossly intact. PSYCHIATRIC: Calm. ASSESSMENT: Atrial fibrillation with rapid ventricular response Hypercoagulable state CHADS2 vascular score greater than 6 PLAN: At this time I will write for IV Lopressor to slow patient down and then initiate Toprol. Patient's EKG on admission revealed no evidence of delta waves and I will repeat an EKG now. I think metoprolol succinate would be a safe option for patient and I would also place him on anticoagulation secondary to his atrial fibrillation may consider cardioversion as an outpatient do not think there was any need at this time for a repeat SMITA. I think patient can be transferred to nursing facility for prolonged IV antibiotics and should come back to see me in the clinic in 2-4 weeks. We will write orders we will sign Vital Signs 01/08/25 01/08/25 01/08/25 01/08/25 12:02 14:15 15:12 15:13 Temp 98.1 100.0 Pulse 102 110 86 86 Resp 18 18 20 20 B/P (MAP) 132/70 129/57 Pulse Ox 91 91 O2 Delivery Nasal Cannula Nasal Cannula N/Cannula Low lpm O2 Flow Rate 3.0 3.0 3.0 01/08/25 01/08/25 01/08/25 01/08/25 16:32 19:16 19:45 23:00 Temp 98.1 99.0 Pulse 107 106 105 108 Resp 18 20 20 B/P (MAP) 128/69 135/67 Pulse Ox 92 91 O2 Delivery Nasal Cannula N/Cannula Low lpm Nasal Cannula O2 Flow Rate 3.0 3.0 3.0 FiO2 32 01/08/25 01/08/25 01/09/25 01/09/25 23:09 23:45 00:58 03:45 Temp 98.6 98.4 Pulse 91 88 90 95 Resp 20 18 18 B/P (MAP) 119/67 141/66 Pulse Ox 94 96 O2 Delivery Nasal Cannula Nasal Cannula O2 Flow Rate 3.0 3.0 01/09/25 01/09/25 01/09/25 07:05 07:05 07:33 Temp 98.2 Pulse 101 102 93 Resp 18 20 16 B/P (MAP) 139/73 Pulse Ox 91 O2 Delivery N/Cannula Low lpm Nasal Cannula O2 Flow Rate 2.0 3.0 FiO2 28 Laboratory Tests Test 01/08/25 11:15 01/08/25 16:00 01/08/25 20:15 01/08/25 23:44 Whole Blood Glucose 86 MG/DL (70-110) 154 MG/DL (70-110) 124 MG/DL (70-110) 148 MG/DL (70-110) Test 01/09/25 03:24 01/09/25 04:06 01/09/25 08:04 White Blood Count 12.7 K/uL (4.8-10.8) Red Blood Count 4.55 MIL/uL (4.50-6.20) Hemoglobin 14.3 g/dL (14.0-18.0) Hematocrit 44.8 % (42-54) Mean Corpuscular Volume 98.5 fL (79-99) Mean Corpuscular Hemoglobin 31.4 pg (27.0-33.0) Mean Corpuscular Hemoglobin Concent 31.9 g/dL (32.0-36.0) Red Cell Distribution Width 13.2 % (11.0-15.5) Platelet Count 115 K/uL (130-400) Mean Platelet Volume 11.2 fL (7.5-10.5) Immature Granulocyte % (Auto) 4.2 % (0-1) Neutrophils (%) (Auto) 81.4 % (40.0-77.0) Lymphocytes (%) (Auto) 7.4 % (21.0-51.0) Monocytes (%) (Auto) 5.3 % (3.0-13.0) Eosinophils (%) (Auto) 0.9 % (0.0-8.0) Basophils (%) (Auto) 0.8 % (0.0-5.0) Neutrophils # (Auto) 10.4 K/uL (1.8-7.7) Lymphocytes # (Auto) 0.9 K/uL (1.0-4.8) Monocytes # (Auto) 0.7 K/uL (0.1-1.0) Eosinophils # (Auto) 0.11 K/uL (0.00-0.70) Basophils # (Auto) 0.10 K/uL (0.00-0.20) Absolute Immature Granulocyte (auto 0.53 K/uL (0-1) Nucleated Red Blood Cells 0.0 % (0.0-0.19) Sodium Level 148 mmol/L (136-145) Potassium Level 3.6 mmol/L (3.5-5.1) Chloride Level 114 mmol/L (101-111) Carbon Dioxide Level 29 mmol/L (21-32) Blood Urea Nitrogen 36 mg/dL (7-18) Creatinine 1.2 mg/dL (0.5-1.3) Glomerular Filtration Rate Calc 60 mL/min (>90) Random Glucose 158 mg/dL (70-105) Total Calcium 8.0 mg/dL (8.5-10.1) Magnesium Level 2.10 mg/dL (1.80-2.40) Total Bilirubin 1.4 mg/dL (0.2-1.0) Aspartate Amino Transf (AST/SGOT) 17 U/L (10-37) Alanine Aminotransferase (ALT/SGPT) 6 U/L (12-78) Alkaline Phosphatase 44 U/L (50-136) Total Protein 4.9 g/dL (6.0-8.3) Albumin 1.7 g/dL (3.5-5.0) Whole Blood Glucose 158 MG/DL (70-110) 169 MG/DL (70-110) Current Medications Medications Dose Ordered Sig/Yadira Route PRN Reason Start Time Stop Time Status Last Admin Sodium Chloride 500 ml @ 0 mls/hr ONCE ONCE IV 01/02/25 00:00 01/02/25 00:01 DC 01/02/25 00:43 Hydromorphone HCl 2 mg ONCE ONCE IVP 01/02/25 01:00 01/02/25 01:01 DC 01/02/25 00:46 Hydromorphone HCl 2 mg STK-MED ONCE .ROUTE 01/02/25 00:36 01/02/25 00:36 DC Dexmedetomidine/ Sodium Chloride 400 mcg STK-MED ONCE IV 01/02/25 01:35 01/02/25 01:36 DC Fentanyl Citrate 100 ml @ As Directed STK-MED ONCE IV 01/02/25 01:36 01/02/25 01:37 DC Propofol 100 ml @ As Directed STK-MED ONCE IV 01/02/25 01:38 01/02/25 01:38 DC Iohexol 35,000 mg STK-MED ONCE IV 01/02/25 01:53 01/02/25 01:53 DC Fentanyl Citrate 100 ml @ 2.5 mls/hr PROTOCOL IV 01/02/25 03:00 01/02/25 07:50 DC 01/02/25 07:47 Piperacillin Sod/ Tazobactam Sod 3.375 gm Q8H IV 01/02/25 03:30 01/02/25 03:57 DC 01/02/25 03:45 Cefepime HCl 1 gm Q12H IVPB 01/02/25 11:00 01/04/25 11:57 DC 01/04/25 09:53 Doxycycline Hyclate 250 ml @ 125 mls/hr Q12H IV 01/02/25 04:00 01/04/25 14:06 DC 01/04/25 04:24 Enoxaparin Sodium 30 mg DAILY SQ 01/02/25 09:00 01/02/25 09:38 DC 01/02/25 09:10 Insulin Human Regular INSULIN SLIDING SCAL... ACHS SQ 01/02/25 07:30 01/03/25 18:12 DC 01/03/25 18:02 Tranexamic Acid 500 mg Q6H TP 01/02/25 06:00 01/03/25 11:18 DC 01/03/25 07:00 Lansoprazole 15 mg DAILY PEG 01/02/25 09:00 01/02/25 09:42 DC 01/02/25 09:10 Lactated Ringer's 1,000 ml BOLUS STAT IV 01/02/25 04:16 01/02/25 04:19 DC Fentanyl/Sodium Chloride 250 ml @ 6.25 mls/hr PROTOCOL IV 01/02/25 08:00 01/03/25 18:12 DC 01/03/25 00:51 Norepinephrine 250 ml @ 34.013 mls/ hr PROTOCOL IV 01/02/25 09:30 01/03/25 15:09 DC 01/02/25 22:37 Norepinephrine 250 ml @ As Directed STK-MED ONCE IV 01/02/25 09:25 01/02/25 09:25 DC Midazolam HCl 50 mg/Sodium Chloride 50 ml @ 0 mls/hr PROTOCOL IV 01/02/25 09:30 01/02/25 09:28 DC Midazolam HCl 50 ml @ 0 mls/hr PROTOCOL IV 01/02/25 09:30 01/03/25 18:12 DC 01/02/25 22:36 Bisacodyl 5 mg DAILY PO 01/03/25 09:00 01/04/25 23:19 DC 01/04/25 09:52 Home Med (Carbidopa/ Levodopa (Carbidopa-L... TID PO 01/02/25 14:00 01/02/25 18:46 DC Home Med (Cholecalciferol (Vitamin D3) (Vitamin D3... DAILY PO 01/03/25 09:00 02/02/25 08:59 Home Med (Linaclotide (Linzess) 1 CAP) DAILY PO 01/03/25 09:00 02/02/25 08:59 01/08/25 10:03 Multivitamins Therapeutic 1 tab DAILY PO 01/03/25 09:00 02/02/25 08:59 01/08/25 10:01 Home Med (Polyethylene Glycol 400 (Bl... DAILY OP 01/03/25 09:00 02/02/25 08:59 01/08/25 10:04 Metronidazole/ Sodium Chloride 100 ml @ 100 mls/hr Q8H6 IVPB 01/02/25 14:00 01/04/25 11:57 DC 01/04/25 06:33 Enoxaparin Sodium 40 mg DAILY SQ 01/03/25 09:00 01/02/25 13:41 DC Pantoprazole Sodium 40 mg DAILY IVP 01/03/25 09:00 01/02/25 13:55 DC Magnesium Sulfate 50 ml @ 0 mls/hr PROTOCOL IV 01/02/25 10:00 02/01/25 09:59 Succinylcholine Chloride 200 mg STK-MED ONCE IVP 01/02/25 10:39 01/02/25 10:40 DC Etomidate 20 mg STK-MED ONCE IVP 01/02/25 10:39 01/02/25 10:40 DC Enoxaparin Sodium 1 unit Q12H SQ 01/02/25 14:00 01/02/25 13:45 DC Enoxaparin Sodium 90 mg BID SQ 01/02/25 21:00 01/04/25 14:05 DC 01/04/25 09:30 Pantoprazole Sodium 40 mg BID IVP 01/02/25 21:00 02/02/25 08:59 01/08/25 20:38 Methylprednisolone Sodium Succinate 40 mg Q8H IVP 01/02/25 14:00 01/04/25 14:06 DC 01/04/25 13:28 Ipratropium [place] 0.5 MG [id number] IH 01/02/25 14:00 02/01/25 13:59 01/09/25 07:04 Insulin Glargine 10 units BID@0730,2100 SQ 01/02/25 21:00 01/05/25 20:24 DC 01/04/25 20:43 Magnesium Citrate 296 ml ONCE ONCE PO 01/02/25 14:30 01/02/25 14:31 DC 01/02/25 15:25 Home Med (Carbidopa/ Levodopa (Carbidopa-L... QID PO 01/02/25 21:00 02/01/25 13:59 01/08/25 20:39 Sodium Bicarbonate 100 meq ONCE ONCE IV 01/02/25 21:00 01/02/25 21:03 DC 01/02/25 22:38 Calcium Gluconate 1 gm/Sodium Chloride 50 ml @ 0 mls/hr PROTOCOL IV 01/02/25 22:00 02/01/25 21:59 01/02/25 22:44 Furosemide 40 mg DAILY IV 01/03/25 01:15 01/04/25 11:55 DC 01/04/25 09:29 Acetaminophen 650 mg STK-MED ONCE .ROUTE 01/03/25 02:55 01/03/25 03:00 DC Dexmedetomidine/ Sodium Chloride 400 mcg PROTOCOL IV 01/03/25 10:30 01/07/25 09:23 DC 01/06/25 22:00 Sodium Bicarbonate 50 meq ONCE ONCE IV 01/03/25 11:00 01/03/25 11:01 DC 01/03/25 11:04 Phenylephrine HCl 100 mg/Sodium Chloride 250 ml @ 0 mls/hr PROTOCOL IV 01/03/25 11:30 01/07/25 20:40 DC 01/03/25 12:00 Sodium Bicarbonate 50 meq ONCE ONCE IV 01/03/25 11:30 01/03/25 11:31 DC 01/03/25 11:22 Midodrine 10 mg TID PO 01/03/25 14:00 02/02/25 13:59 01/08/25 10:01 Acetaminophen 1,000 mg ONCE ONCE IVPB 01/03/25 11:30 01/03/25 11:31 DC 01/03/25 12:03 Vancomycin HCl 1 each AD IV 01/03/25 15:30 01/04/25 11:57 DC Vancomycin HCl 250 ml @ 125 mls/hr ONCE ONCE IV 01/03/25 18:00 01/03/25 19:59 DC 01/03/25 18:03 Vancomycin HCl 250 ml @ 125 mls/hr Q24H IV 01/04/25 18:00 01/04/25 11:57 DC Insulin Human Regular INSULIN SLIDING SCAL... Q6H SQ 01/04/25 00:00 01/05/25 20:23 DC 01/05/25 18:35 Piperacillin Sod/ Tazobactam Sod 3.375 gm Q8H IV 01/04/25 12:00 01/14/25 11:59 01/09/25 05:30 Enoxaparin Sodium 40 mg DAILY SQ 01/05/25 09:00 01/09/25 08:06 DC 01/08/25 10:05 Methylprednisolone Sodium Succinate 40 mg Q12H IVP 01/05/25 02:00 01/05/25 09:52 DC 01/05/25 01:05 Bisacodyl 10 mg DAILY RC 01/05/25 09:00 01/08/25 08:59 DC 01/07/25 08:30 Dextrose 1,000 ml @ 50 mls/hr Q20H IV 01/05/25 10:00 01/07/25 09:59 DC 01/07/25 03:50 Diazepam 2 mg Q8H IV 01/05/25 10:00 01/07/25 09:23 DC 01/07/25 08:37 Lactulose 20 gm BID PO 01/05/25 21:00 02/04/25 20:59 01/08/25 20:39 Polyethylene Glycol 17 gm DAILY PO 01/06/25 09:00 02/05/25 08:59 01/08/25 10:02 Insulin Human Regular INSULIN SLIDING SCAL... Q4H SQ 01/05/25 20:30 02/04/25 20:29 01/09/25 05:34 Insulin Glargine 20 units BID@0730,2100 SQ 01/05/25 21:00 02/04/25 20:59 01/08/25 23:48 Thiamine HCl 300 mg DAILY IVP 01/07/25 09:00 02/06/25 08:59 01/08/25 10:30 Quetiapine Fumarate 12.5 mg BID PO 01/06/25 21:00 01/06/25 15:53 DC Quetiapine Fumarate 12.5 mg BID PO 01/06/25 16:00 02/05/25 20:59 01/08/25 20:40 Bisacodyl 10 mg ONCE ONCE RC 01/08/25 17:00 01/08/25 17:01 DC 01/08/25 16:57 Metoprolol Succinate 50 mg DAILY PO 01/09/25 09:00 02/08/25 08:59 Apixaban 5 mg BID PO 01/09/25 09:00 02/08/25 08:59 Digoxin 500 mcg ONCE ONCE IV 01/09/25 08:30 01/09/25 08:31 DC Discontinued Reported Medications Ketoconazole (Ketoconazole) 2 % Cream.gm., 1 APPL TP DAILY for 7 Days, #15 GM 0 Refills apply to affected area(s) 01/02/25 Biotin (Biotin) 1 Mg Capsule, 1 CAP PO DAILY for 30 Days, #30 CAP 0 Refills 01/02/25 Polyethylene Glycol 400 (Blink Tears) 0.25 % Drops, 15 ML OP DAILY, DROP 01/02/25 Bisacodyl (Dulcolax) 5 Mg Tablet.dr, 2 TAB PO DAILY for constipation for 1 Day, #2 TAB 0 Refills 01/02/25 Bisacodyl (Dulcolax) 5 Mg Tablet.dr, 5 MG PO BID, TAB 01/02/25 Multivitamin (Multi Vitamin Daily) 1 Each Tablet, 1 TAB PO DAILY for 30 Days, #30 TAB 0 Refills 01/02/25 Cholecalciferol (Vitamin D3) (Vitamin D3) 25 Mcg (1000 Unit) Capsule, 1 CAP PO DAILY for 30 Days, #30 CAP 0 Refills 01/02/25 Semaglutide (Ozempic) 1 Mg/0.75 Ml (4 Mg/3 Ml) Pen.injctr, 1 MG SQ QWEEK for 30 Days, #3 ML 0 Refills 01/02/25 Fluticasone Propionate (Fluticasone Propionate) 50 Mcg/Actuation [place].susp, 15.8 ML NS DAILY 01/02/25 Ipratropium [place] (Atrovent 0.06% Nasal [place]) 42 Mcg (0.06 %) [place], 1 MCG NASAL DAILY, SPRAY 01/02/25 Linaclotide (Linzess) 145 Mcg Capsule, 1 CAP PO DAILY for 30 Days, #30 CAP 0 Refills 01/02/25 Insulin Glargine,Hum.rec.anlog (Lantus Solostar) 100 Unit/Ml (3 Ml) Insuln.pen, 30 UNIT SQ DAILY for 30 Days, #15 ML 0 Refills 01/02/25 Empagliflozin (Jardiance) 25 Mg Tablet, 1 TAB PO DAILY for 30 Days, #30 TAB 0 Refills 01/02/25 Carbidopa/Levodopa (Carbidopa-Levo 25-100 mg Odt) 25 Mg-100 Mg Tab.rapdis, 1.5 TAB PO TID for 30 Days, #90 TAB 0 Refills 01/02/25 Benazepril HCl (Benazepril HCl) 10 Mg Tablet, 1 TAB PO DAILY for 30 Days, #30 TAB 0 Refills 01/02/25 Empagliflozin (Jardiance) 25 Mg Tablet, 25 MG PO AM, TAB 12/16/20 Hydrochlorothiazide (Hydrochlorothiazide) 25 Mg Tablet, 25 MG PO AM, TAB 12/16/20 Benazepril HCl (Benazepril HCl) 40 Mg Tablet, 40 MG PO AM, TAB 12/16/20 Multivitamin (Multivitamin) 1 Each Tablet, 1 EACH PO AM, TAB 12/16/20 Aspirin (Aspirin) 81 Mg Tab.chew, 81 MG PO DAILY, TAB.CHEW 10/25/20 Ketoconazole (Ketoconazole) 120 Ml Shampoo, 120 ML TP 5XDAY, APPL 08/04/19 Insulin Glargine,Hum.rec.anlog (Lantus) 100 Units/Ml Inj, 35 UNITS SQ DA ILYBKFST, ML 08/04/19 Metformin HCl (Metformin HCl) 850 Mg Tablet, 850 MG PO BIDAC, TAB 08/04/19 LEANDRO MAYFIELD MD Jan 09, 2025 10:47
[2025-01-09] MEDS: metOPROLol sucCINATE 50 MG TAB.SR.24H PO SCH (11:34)
[2025-01-09] MEDS: APIXaban 5 MG TABLET PO SCH (11:35)
--- NOTE | 2025-01-09 12:53 | NUR ---
ATTEMPTED TO CALL REPORT TO [facility]. NURSE IS OUT TO LUNCH
--- NOTE | 2025-01-09 22:54 | PN ---
[facility] PROGRESS NOTE Late entry for patient visit time at 0950am. Date Patient Seen: Jan 09, 2025 Time of Visit: 22:53 Supervising Physician: Dr. Blas Primary Care Physician: Cielo Bledsoe MD Outpatient Specialists: none Inpatient Consults: Critical care BIS, PROBLEM LIST: Bilateral Multifocal bacterial pneumonia, +(Klebsiella Aerogenes and Klebsiella Oxytoca POA Acute hypoxemic respiratory failure POA status post extubation Suspected aspiration pneumonia, POA -Pending MBSS Acute on chronic HFpEF 60-65% POA Septic shock, POA requiring pressors, resolved suspected mitral bacterial endocarditis, (ruled out) per SMTIA Lactic acidosis, POA Elevated D-dimer negative for PE positive for superficial popliteal thrombus Acute non-anion gap metabolic acidosis, POA Right popliteal Thrombus POA Cardiomegaly Parkinson's disease Victorino Parkinson's White syndrome Hyperglycemia in the presence of type 2 diabetes mellitus Pancreatitis, POA Hypomagnesemia INTERVAL HISTORY: Patient is awake alert and oriented to person and place. No major overnight heriberto nt, sitting up on recliner chair . pt complains of constipation. He is pending MBSS. will follow further recs. White count is 12.6. Cr 1.3 GFR of 55 sodium of 146. He is pending [facility] placement. Update pt's on current findings and answered all her questions 01/09/2025: At the time of my evaluation, the patient was lying in bed. He remains on nasal cannula on the monitor patient was with elevated heart rate in the low 100s. Laboratory data today was notable for elevated WBC of 12.7. Chem istry panel was notable for a sodium of 148, chloride of 114, BUN of 36, creatinine of 1.2 and a GFR of 60 total bilirubin of 1.4 we will no transaminitis. Total protein of 4.9 and a albumin of 1.7. AFB broth cultures were pending x2. No new imaging for today. The patient continued on antibiotic therapy with Zosyn and is on ProAmatine for marginal hypotension. I was advised by the staff nurse that the patient we will be transferring to [facility] at some point today. No other complaint. REVIEW OF SYSTEMS: .Const: [No fever, fatigue, or weight changes] Eyes:[ no recent vision problems] ENT: [No congestion, ear pain, or sore throat] C/V: [no chest pain, palpitations or edema] Resp: [No cough, congestion, wheezing , or Shortness of breath] GI: [Yes for constipation. : [No incontinence of or dyuria] M/S: [No joint or pain swelling] Skin: [No rash] Neuro: [no headache, focal numbness, or weakness, dizziness or seizures] Psych: [no depression or anxiety] Heme: [no abnormal bruising or bleeding] Lymph: [no swollen glands] additional info: ROS unable to obtain due to: PHYSICAL EXAM: GENERAL: Patient is awake alert and oriented to name and place. GCS of 14. Follows commands common cooperative. HEENT: Sclerae nonicteric, moist mucosa. NECK: Supple, no JVD, trachea midline LUNGS: Clear breath sounds bilaterally. No wheezes HEART: Regular rate and rhythm. Normal S1 and S2, without murmurs ABD: Abdomen soft nontender, normal bowel sounds. EXT: No pitting edema. NEURO: Awake follows commands and no focal deficits, Hx of Parkinson. LABS: Hematology Labs: Test 01/09/25 03:24 Range/Units White Blood Count 12.7 H 4.8-10.8 K/uL Red Blood Count 4.55 4.50-6.20 MIL/uL Hemoglobin 14.3 14.0-18.0 g/dL Hematocrit 44.8 42-54 % Mean Corpuscular Volume 98.5 79-99 fL Mean Corpuscular Hemoglobin 31.4 27.0-33.0 pg Mean Corpuscular Hemoglobin Concent 31.9 L 32.0-36.0 g/dL Red Cell Distribution Width 13.2 11.0-15.5 % Platelet Count 115 L 130-400 K/uL Mean Platelet Volume 11.2 H 7.5-10.5 fL Immature Granulocyte % (Auto) 4.2 H 0-1 % Neutrophils (%) (Auto) 81.4 H 40.0-77.0 % Lymphocytes (%) (Auto) 7.4 L 21.0-51.0 % Monocytes (%) (Auto) 5.3 3.0-13.0 % Eosinophils (%) (Auto) 0.9 0.0-8.0 % Basophils (%) (Auto) 0.8 0.0-5.0 % Neutrophils # (Auto) 10.4 H 1.8-7.7 K/uL Lymphocytes # (Auto) 0.9 L 1.0-4.8 K/uL Monocytes # (Auto) 0.7 0.1-1.0 K/uL Eosinophils # (Auto) 0.11 0.00-0.70 K/uL Basophils # (Auto) 0.10 0.00-0.20 K/uL Absolute Immature Granulocyte (auto 0.53 0-1 K/uL Nucleated Red Blood Cells 0.0 0.0-0.19 % Chemistry Labs: Test 01/09/25 12:04 01/09/25 03:24 01/08/25 04:13 Range/Units Whole Blood Glucose 133 H 70-110 MG/DL Sodium Level 148 H 136-145 mmol/L Potassium Level 3.6 3.5-5.1 mmol/L Chloride Level 114 H 101-111 mmol/L Carbon Dioxide Level 29 21-32 mmol/L Blood Urea Nitrogen 36 H 7-18 mg/dL Creatinine 1.2 0.5-1.3 mg/dL Glomerular Filtration Rate Calc 60 >90 mL/min Random Glucose 158 #H 70-105 mg/dL Total Calcium 8.0 L 8.5-10.1 mg/dL Magnesium Level 2.10 1.80-2.40 mg/dL Total Bilirubin 1.4 H 0.2-1.0 mg/dL Aspartate Amino Transf (AST/SGOT) 17 10-37 U/L Alanine Aminotransferase (ALT/SGPT) 6 L 12-78 U/L Alkaline Phosphatase 44 L 50-136 U/L Total Protein 4.9 L 6.0-8.3 g/dL Albumin 1.7 L 3.5-5.0 g/dL Procalcitonin 4.51 H 0.05-0.5 ng/mL DIAGNOSTICS / RADIOLOGY RESULTS: [ ] PLAN pending MBSS continue IV abx for aspiration pneumonia NPO continue IS Bowel regimen [facility] to [facility] per primary 01/09/2025: For now, we will continue current management for the patient. Prior to my visit, the patient was seen by the manager play's who ordered beta nydia therapy to so his heart rate, subQ Lovenox was stopped and the patient was started on Eliquis. The plan is for transfer to the LTAC today, from the pulmonary standpoint, no objection for transfer. Appreciate the opportunity provided participate in patient care. NEURO: Minimize central acting medications as possible. Maintain fall precautions, adequate lighting during the day PULMONARY: Supplemental 02 as needed. Maintain aspiration precautions at all times CARDIOVASCULAR: Follow hemodynamics. Vital signs per facility protocol GI & NUTRITION: Continue with nutritional support. Continue stool softeners and laxatives as needed. KIDNEYS & ELECTROLYTES: Strict monitoring of intake, output and overall fluid balance. Avoid nephrotoxic medications to the extent possible. Medications to be dosed according to renal function. Monitor electrolytes and replace as needed ENDOCRINE: Maintain blood glucose between 100-180 at all times. Hypoglycemia protocol in place INFECTIOUS DISEASE: Trend temperature, WBC and procalcitonin level Follow cultures, deescalate antibiotics as soon as possible. Panculture if new onset fever ONCOLOGY/HEMATOLOGY/COAGULATION: Monitor for s/s of bleeding Monitor hemoglobin, coagulation studies as needed SKIN: Pressure ulcer prevention per facility protocol Specialty mattress ORTHO/REHAB: Continue PT/OT Prophylaxis: Continue GI and DVT prophylaxis Code Status: Full Resuscitation Disposition: LTAC Other: Total patient care time exceeds 35 minutes excluding all procedures. CAPRI GORE FORENSIC ENGINEER Jan 09, 2025 22:53
== END 2025-01-09 15:54 | DRG 871 ==
LOC: EDH 22:58 → EDHIP 01-02 03:36 → 2BH 01-02 04:14 → 2DH 01-07 14:51
PROVIDERS: ADMIT Internal Medicine Infectious Disease; ATTEND Internal Medicine Infectious Disease
PROC: 0W9930Z Drainage of Right Pleural Cavity with Drainage Device, Percutaneous Approach (ICD-10-PCS; principal; 2025-01-02)
PROC: 02HV33Z Insertion of Infusion Device into Superior Vena Cava, Percutaneous Approach (ICD-10-PCS; 2025-01-02)
PROC: 5A1945Z Respiratory Ventilation, 24-96 Consecutive Hours (ICD-10-PCS; 2025-01-02)
PROC: 0BH17EZ Insertion of Endotracheal Airway into Trachea, Via Natural or Artificial Opening (ICD-10-PCS; 2025-01-02)
PROC: B24BZZ4 Ultrasonography of Heart with Aorta, Transesophageal (ICD-10-PCS; 2025-01-03)
PROC: 5A09357 Assistance with Respiratory Ventilation, Less than 24 Consecutive Hours, Continuous Positive Airway Pressure (ICD-10-PCS; 2025-01-03)
PROC: 5A09357 Assistance with Respiratory Ventilation, Less than 24 Consecutive Hours, Continuous Positive Airway Pressure (ICD-10-PCS; 2025-01-04)
DX: A41.9 Sepsis, unspecified organism (principal); G93.41 Metabolic encephalopathy; J15.9 Unspecified bacterial pneumonia; R65.21 Severe sepsis with septic shock; J96.01 Acute respiratory failure with hypoxia; K85.90 Acute pancreatitis without necrosis or infection, unspecified; I50.33 Acute on chronic diastolic (congestive) heart failure; J15.69 Pneumonia due to other Gram-negative bacteria; E87.21 Acute metabolic acidosis; D68.59 Other primary thrombophilia; E87.0 Hyperosmolality and hypernatremia; J93.9 Pneumothorax, unspecified; N17.9 Acute kidney failure, unspecified; I82.431 Acute embolism and thrombosis of right popliteal vein; Z20.822 Contact with and (suspected) exposure to COVID-19; E11.65 Type 2 diabetes mellitus with hyperglycemia; E66.9 Obesity, unspecified; E78.5 Hyperlipidemia, unspecified; I49.3 Ventricular premature depolarization; I11.0 Hypertensive heart disease with heart failure; I48.0 Paroxysmal atrial fibrillation; G20.A1 Parkinson's disease without dyskinesia, without mention of fluctuations; E83.42 Hypomagnesemia; I45.6 Pre-excitation syndrome; K59.00 Constipation, unspecified; R13.12 Dysphagia, oropharyngeal phase; Z53.9 Procedure and treatment not carried out, unspecified reason; Z83.3 Family history of diabetes mellitus; Z86.0100 Personal history of colon polyps, unspecified; Z79.899 Other long term (current) drug therapy; Z68.27 Body mass index [BMI] 27.0-27.9, adult
CPT/HCPCS: 31500; 36415; 36569; 36600; 70450; 71045; 71275; 74018; 74174; 74230; 80048; 80053; 80061; 80076; 80305; 81001; 82010; 82140; 82435; 82550; 82803; 82947; 82948; 83036; 83605; 83690; 83735; 83880; 84132; 84145; 84295; 84443; 84484; 85018; 85025; 85027; 85378; 85384; 85610; 85730; 86701; 86757; 87040; 87071; 87086; 87116; 87186; 87205; 87206; 87390; 87635; 87804; 87880; 92610; 92611; 93005; 93306; 93312; 93325; 93356; 93970; 93971; 94002; 94003; 94150; 94640; 94664; 99291; C1751; C1894; G0378; J0330; J0612; J0692; J1160; J1171; J1650; J1815; J1938; J2371; J2470; J2543; J2704; J2919; J3010; J3360; J3411; J3475; J3480; J3490; J7040; J7050; J7120; Q9967; J3370

== ENCOUNTER 2025-03-01 12:21 | Emergency (ER) | payer MEDICARE ==
[~2025-03-01] VITALS: Ht 175.3 cm; Wt 59.0 kg
[2025-03-01 13:45] LABS: BASOPHILS # (AUTO) 0.03 K/uL (0.00-0.20); BASOPHILS % (AUTO) 0.5 % (0.0-5.0); EOSINOPHILS # (AUTO) 0.07 K/uL (0.00-0.70); EOSINOPHILS % (AUTO) 1.1 % (0.0-8.0); HEMATOCRIT 45.6 % (42-54); IMMATURE GRANULOCYTE ABSOLUTE 0.03 K/uL (0-1); LYMPHOCYTES # (AUTO) 0.9 K/uL (1.0-4.8); LYMPHOCYTES % (AUTO) 13.7 % (21.0-51.0); MEAN CORPUSCULAR HEMOGLOBIN 30.8 pg (27.0-33.0); MEAN CORPUSCULAR HGB CONC 31.6 g/dL (32.0-36.0); MEAN CORPUSCULAR VOLUME 97.6 fL (79-99); MONOCYTES # (AUTO) 0.5 K/uL (0.1-1.0); MONOCYTES % (AUTO) 7.5 % (3.0-13.0); NEUTROPHILS % (AUTO) 76.7 % (40.0-77.0); PLATELET COUNT (AUTO) 252 K/uL (130-400); RED BLOOD CELL COUNT(AUTO) 4.67 MIL/uL (4.50-6.20); RED CELL DISTRIBUTION WIDTH 14.7 % (11.0-15.5); WHITE BLOOD COUNT (AUTO) 6.6 K/uL (4.8-10.8)
[2025-03-01 13:51] LABS: CREATININE 0.9 mg/dL (0.5-1.3); POTASSIUM 4.3 mmol/L (3.5-5.1)
[2025-03-01 13:53] LABS: INR 1.16 (0.85-1.15); PROTHROMBIN TIME 12.1 SEC (9.6-11.6)
[2025-03-01 13:54] LABS: PARTIAL THROMBOPLASTIN TIME 29.6 SEC (26.3-35.5)
--- NOTE | 2025-03-01 13:57 | NUR ---
Obtained consent for CT.
--- NOTE | 2025-03-01 14:30 | NUR ---
Educated patient and significant other on Reason why patient is not able to eat anything by mouth until he follows up with Surgeon who placed peg tube. Patient and significant other verbalized understanding. Gave patient printed education on how to take care of peg tube, how to take care of tube, how to give medication via peg tube, the importance of water flushes, how to measure gastric residual and best position while feeding. Patient and significant other verbalized understanding.
[2025-03-01] MEDS ORDERED: IOHEXOL-350 75 ML VIAL IV ONE (15:04)
--- NOTE | 2025-03-01 15:38 | HMCIMG ---
CT CHEST W/CONTRAST HISTORY: Mass and effusion COMPARISON: 01/02/2025 TECHNIQUE: Multiple sequential axial images of the chest were obtained from the thoracic inlet through upper abdomen. Patient was given Omnipaque through intravenous route. FINDINGS: Loculated right pleural effusion is seen with compressive atelectasis. Mild bilateral interstitial fibrotic changes are seen. There is no evidence of pneumothorax. There are normal size mediastinal and hilar lymph nodes. The heart is not enlarged. Degenerative changes of the thoracolumbar spine are present. There is no evidence of adrenal nodule. IMPRESSION: 1. Loculated right pleural effusion with compressive atelectasis. CT was performed with one or more following dose reduction techniques: automated exposure control, adjustment of the mA and kv according to patient's size, or use of a iterative reconstruction technique.
--- NOTE | 2025-03-01 16:34 | ERN ---
General Chief Complaint: Direct Admit Stated Complaint: RT MIDDLE LOBE MASS RT PE Time Seen by MD: 13:10 History of Present Illness Initial Comments 84-year-old male presents for concern for a lung mass. Patient had a prolonged three month hospitalization for an pneumonia recently. He was discharged on February 09, 2025. He had a follow up CT scan with Dr. Cielo Beth about a week ago which shows a necrotic mass. The patient denies any cough or congestion or fever at this time. He was sent in by Dr. Cielo Beth for further studies and admission. Allergies: Coded Allergies: No Known Allergies (Unverified Allergy, 07/27/13) Home Meds No Active Prescriptions or Reported Meds Past Medical History Past Medical History: Diabetes-Type II, Hypertension, Other Medical History Other: PARKINSONS, Hx of WPW syndrome Past Surgical History: None ROS Dictation CONSTITUTIONAL: No chills, no fever, no weakness, no diaphoresis, no malaise. HEAD/FACE: No signs of trauma. EENT: No eye pain, no blurred vision, no tearing, no double vision, no ear pain, no ear discharge, no nose pain, no nasal congestion, no throat pain, no throat swelling, no mouth pain. RESPIRATORY: No cough, no orthopnea, no SOB, no stridor, no wheezing. CARDIOVASCULAR: No chest pain, no edema, no palpitations, no syncope. GASTROINTESTINAL/ABDOMINAL: No abdominal pain, no constipation, no diarrhea, no nausea, no vomiting. GENITOURINARY: No abnormal discharge, no dysuria, no frequent urination, no hematuria. No complaints of pain in the genitals. MUSCULOSKELETAL: No back pain, no gout, no joint pain, no joint swelling, no muscle pain, no muscle stiffness, no neck pain. INTEGUMENTARY: No change in color, no change in hair/nails, no dryness, no lesion, no lumps, no rash. NEUROLOGICAL/PSYCH: No anxiety, not depressed, no emotional problem, no headache, no numbness, no pre-existing deficit, no history of seizures, no tremors, no weakness. HEMATOLOGIC/LYMPHATIC: Not anemic, no history of blood clots, no apparent bleeding, no bruising, glands not swollen. All Systems Negative, Except as Noted. Physical Exam Physical Exam Dictation VITAL SIGNS: Reviewed. GENERAL APPEARANCE: Alert, oriented x3, no acute distres HEAD AND FACE: Non-traumatic. EYES: PERRL, pink conjunctivas, eyelid no trauma, anterior chamber clear. EARS: Pinnas intact and no signs of trauma or erythema. Ear canals clear and no discharge. TMs no erythema. NOSE: No discharge, no bleeding. OROPHARYNX: Mouth normal, teeth no caries, tongue pink. Pharynx clear, no erythema. Tonsils no exudates, no abscesses noted. Mucous membrane moist. NECK: Supple, non-tender, no thyromegaly, no masses, no JVD, no bruits. BREAST: Deferred. CHEST: No tenderness, no crepitus, no paradoxical movement, no retractions. LUNGS: Clear, well-ventilated, symmetric, no rales, no wheezing, no rhonchi, no stridor, good breath sounds bilaterally. HEART: Regular rate, regular rhythm, no murmur, no gallops. VASCULAR: No peripheral edema. ABDOMEN: Soft, positive bowel sounds, nondistended, no guarding, nontender, no rebound, no masses no hepatomegaly, no splenomegaly, no Mcfarland's sign, no hernias. RECTAL: Deferred. GENITAL: Deferred. NEUROLOGICAL: Normal speech, gross motor function intact, gross sensory func tion intact. MUSCULOSKELETAL: Neck nontender, full range of motion, back nontender, full range of motion. EXTREMITIES: Nontender, full range of motion. SKIN: Color pink, dry, no turgor, no rash, no lacerations, no abrasions, no contusions. LYMPHATICS: Deferred. Results Laboratory and Microbiology Lab and Micro Result Laboratory Tests Test 03/01/25 13:36 White Blood Count 6.6 K/uL (4.8-10.8) Red Blood Count 4.67 MIL/uL (4.50-6.20) Hemoglobin 14.4 g/dL (14.0-18.0) Hematocrit 45.6 % (42-54) Mean Corpuscular Volume 97.6 fL (79-99) Mean Corpuscular Hemoglobin 30.8 pg (27.0-33.0) Mean Corpuscular Hemoglobin Concent 31.6 g/dL (32.0-36.0) L Red Cell Distribution Width 14.7 % (11.0-15.5) Platelet Count 252 K/uL (130-400) Mean Platelet Volume 9.9 fL (7.5-10.5) Immature Granulocyte % (Auto) 0.5 % (0-1) Neutrophils (%) (Auto) 76.7 % (40.0-77.0) Lymphocytes (%) (Auto) 13.7 % (21.0-51.0) L Monocytes (%) (Auto) 7.5 % (3.0-13.0) Eosinophils (%) (Auto) 1.1 % (0.0-8.0) Basophils (%) (Auto) 0.5 % (0.0-5.0) Neutrophils # (Auto) 5.0 K/uL (1.8-7.7) Lymphocytes # (Auto) 0.9 K/uL (1.0-4.8) L Monocytes # (Auto) 0.5 K/uL (0.1-1.0) Eosinophils # (Auto) 0.07 K/uL (0.00-0.70) Basophils # (Auto) 0.03 K/uL (0.00-0.20) Absolute Immature Granulocyte (auto 0.03 K/uL (0-1) Nucleated Red Blood Cells 0.0 % (0.0-0.19) Prothrombin Time 12.1 SEC (9.6-11.6) H Prothromb Time International Ratio 1.16 (0.85-1.15) H Activated Partial Thromboplast Time 29.6 SEC (26.3-35.5) Sodium Level 137 mmol/L (136-145) Potassium Level 4.3 mmol/L (3.5-5.1) Chloride Level 101 mmol/L (101-111) Carbon Dioxide Level 30 mmol/L (21-32) Blood Urea Nitrogen 19 mg/dL (7-18) H Creatinine 0.9 mg/dL (0.5-1.3) Glomerular Filtration Rate Calc 85 mL/min (>90) Random Glucose 310 mg/dL (70-105) H Total Calcium 9.1 mg/dL (8.5-10.1) Total Creatine Kinase 25 U/L (21-232) # Troponin I High Sensitivity 13.8 ng/L (4-75) MDM CC: Cough, concern for lung mass Historian: Patient Comorbidities: Hypertension, diabetes, recent prolonged and complicated course of pneumonia Limitations by social determinants of health: None Differential diagnosis: Abscess versus mass versus pleural effusion versus pneumonia Labs (independently ordered and interpreted by me): Leukocytosis or anemia no shift no bands. Chemistry shows elevated BUN to a creatinine ratio hyperglycemia otherwise unremarkable. Coags stable. External chart review: Patient has a CT chest without contrast dated 02/23/[address] Cielo Beth. The results are right middle lobe 4.9 cm necrotic mass concerning for malignancy versus an abscess. It recommends further assessment with the contrast chest CT or PET CT. There was also a right moderate size loculated pleural effusion and symptoms suggestive of pulmonary hypertension. I reviewed a note from Dr. Cielo Beth. She is requesting a PEG tube, but the patient had a PEG tube placed yesterday at [facility]. External chart review: Patient was discharged by Dr. Jones on 01/08/2025 from this facility. The patient was found to be in septic shock, D-dimer pneumonia with respiratory failure. The patient was intubated in the ICU also had a pleural effusion and chest tube placement. He was on a prolonged course of Zosyn. He was at an LTAC afterwards. The CT scan with contrast shows loculated right pleural effusion with compressive atelectasis. Consultation: I consulted with Dr. Agee, radiologist. He reviewed the images together. In the middle lobe in the anterior area there has a possible loculated area. He reports that this looks like a loculation connection to the pleural effusion. He is very low suspicion that it is your primary malignancy. Consultation: I discussed the case with Dr. Jones. We reviewed the case together. He reports that at this time that it does not appear to be any indication for admission. Patient can be worked up as an outpatient. He recommends no antibiotics and repeat CT scan in one month. Consultation: I discussed the case with Dr. Cielo Beth's office. We went over the patient's case and agreed that the patient will be worked up as an outpatient. I had a conversation with the patient and his . At this point in time the patient has no respiratory distress no fevers in his otherwise stable. I offered admission. They report a prolonged course in the hospital and currently do not prefer to stay in the hospital for further workup or treatment at this time. Patient has good follow up already scheduled. We will discharge recommend PCP follow up. ED Course Orders Procedure Category Date Status Time Ct Chest W/Contrast CT 03/01/25 Resulted 13:17 Cardiac Panel LAB 03/01/25 Complete 13:17 Cbc With Differential LAB 03/01/25 Complete 13:17 Basic Metabolic Panel LAB 03/01/25 Complete 13:17 Prothrombin Time With LAB 03/01/25 Complete INR 13:17 Partial LAB 03/01/25 Complete Thromboplastin Time 13:17 12 Lead Ekg Tracing- EKG 03/01/25 Logged Technical 13:17 Iohexol (Omnipaque) PHA 03/01/25 Complete 15:04 Current Medications Medications (Trade) Dose Ordered Sig/Yadira Route PRN Reason Start Time Stop Time Status Last Admin Dose Admin Iohexol (Omnipaque) 75 ml STK-MED ONCE IV 03/01/25 15:04 03/01/25 15:04 DC Vital Signs Date Time Temp Pulse Resp B/P (MAP) Pulse Ox O2 Delivery O2 Flow Rate FiO2 03/01/25 13:40 98.2 16 131/77 94 Room Air* 0 21 03/01/25 12:59 97.9 90 16 130/76 95 Room Air 0 DX & DISP Disposition: Discharge Departure Impression: Primary Impression: Pleural effusion Condition: Stable Scripts No Active Prescriptions or Reported Meds Additional Instructions: As we discussed, the CT scan findings are consistent with a loculated pleural effusion. This can be worked up as an outpatient. Your lab work (CBC with differential, PT/INR, metabolic panel, CK, troponin) shows mildly elevated blood glucose at 310 but is otherwise unremarkable. Please follow up with Dr. Cielo Beth. You may need to visit a stenotype operator or a it support engineer. Please immediately return to the emergency department if you develop any weakness, fevers, respiratory distress, or any other concerning symptom. Referrals: RADHA ALTMAN MD (PCP) JACKELYN JONES DO Mar 01, 2025 16:34
[2025-03-01 17:06] VITALS: BP 138/70; PULSE 70; RESP 20; TEMP 98.2; O2SAT 100
--- NOTE | 2025-03-02 08:55 | EKG ---
[facility] Test Date: 2025-03-01 Test Time: 13:38:39 Pat Name: OMAR STEELE Department: ED Room: Gender: M Senior Consulting Manager: [id number] : 1940 Requested By: JACKELYN JONES Order Number: [id number] Reading MD: Sienna Evans Measurements Intervals [place] Rate: 92 P: 0 VT: 0 QRS: 20 QRSD: 93 T: 36 QT: 424 QTc: 524 Interpretive Statements Atrial fibrillation Ventricular premature complex Borderline ST depression, lateral leads Prolonged QT interval Compared to ECG 01/09/2025 08:13:38 ST (T wave) deviation now present Prolonged QT interval now present Myocardial infarct finding no longer present T-wave abnormality no longer present Electronically Signed On 03-02-2025 13:37:02 CDT by Sienna Evans Please click the below link to view image of tracing.
== END 2025-03-01 17:40 | disposition home or self-care (01) ==
LOC: EDH 12:21
DX: J90 Pleural effusion, not elsewhere classified (principal); E11.9 Type 2 diabetes mellitus without complications; I10 Essential (primary) hypertension
CPT/HCPCS: 99285; 71260; 82550; 84484; 80048; 85025; 85610; 85730; 36415; 93005; Q9967

== ENCOUNTER → 2025-05-23 | Outpatient (CLI) | payer MEDICARE ==
--- NOTE | 2025-05-23 13:40 | NUR ---
MBSS COMPLETED (OUTPATIENT). No aspirations. Deep non-transient penetrations during the swallow with mixed textures and thin liquids via large sips. RECOMMEND: regular solids (no mixed textures), thin liquids (single, small sips) and pills crushed with pureed or whole 1 per swallow with pudding/applesauce as tolerated. COMPENSATORY STRATEGIES: 1. sit upright during oral intake 2. small and single sips 3. small bites 4. extra dry swallows per bites/sips 5. slow oral intake 6. NO MIXED TEXTURES NOTE: Pt with PEG tube in place due to Hx of dysphagia. Pt completed 6 weeks of speech therapy post PEG tube placement and discharged from services with ([facility]) home exercise program. WASTE DISPOSAL LEAKAGE TESTER therapist recommended patient to repeat MBSS. DIAGNOSTIC FINDINGS: Pt presented with mild pharyngeal dysphagia characterized by decreased tongue base retraction; decreased hyo-laryngeal elevation/excursion evidenced by residue on base of tongue and posterior pharyngeal wall; occasional and minimal residue above UES noted not affecting the swallowing; resulting in deep non-transient penetrations during the swallow with mixed textures and thin liquids via large cup sips followed by immediate throat clears. No aspiration observed during this study. WASTE DISPOSAL LEAKAGE TESTER reviewed results and recommendations with patient and present at time of visit. WASTE DISPOSAL LEAKAGE TESTER educated patient on risks and consequences of aspiration. Speech therapy not warranted at this time to address mild pharyngeal dysphagia as patient completed therapy session and discharged with [facility]. All questions answered. Addendum: 05/23/[address] SARAH RUFFIN Amended: Links added.
--- NOTE | 2025-05-24 14:09 | HMCIMG ---
MODIFIED BARIUM SWALLOW W CINE REASON: DYSPHAGIA FINDINGS: Fluoroscopic assistance was provided to the speech pathologist while performing examination. For findings and dietary recommendations, refer to speech pathologist's report. FLUORO TIME: Fluoroscopy time 3.2 minutes. IMPRESSION: Modified barium swallow as described.
== END | disposition home or self-care (01) ==
LOC: RAH 13:00
PROVIDERS: ATTEND Internal Medicine Gastroenterology
DX: R13.12 Dysphagia, oropharyngeal phase (principal); R63.30 Feeding difficulties, unspecified
CPT/HCPCS: 74230; 92611